=== PATIENT | female | born 1985 | race Caucasian/White ===

== ENCOUNTER 2020-06-01 14:39 | Outpatient (REF) | payer BC, MEDICARE, MEDICAID, SELFPAY ==
[2020-06-01 17:09] LABS: Alanine Aminotransferase 15 U/L (0-31); Albumin Level 4.6 g/dL (3.5-5.0); Alkaline Phosphatase 32 U/L (39-117); Anion Gap 13 (12-20); Aspartate Amino Transferase 14 U/L (5-31); Bilirubin Total 0.9 mg/dL (0.0-1.0); Blood Urea Nitrogen 15 mg/dL (9-16); Calcium 9.7 mg/dL (8.4-10.2); Carbon Dioxide 28 mmol/L (22-29); Chloride 104 mmol/L (96-108); Estimated Glomerular Filt Rate > 60; Glucose Random 90 mg/dL (60-115); Potassium 4.2 mmol/l (3.3-5.1); Sodium 141 mmol/L (135-145); Total Protein 7.4 g/dL (6.5-8.0)
[2020-06-01 17:29] LABS: TSH reflex Free T4 0.82 mIU/mL (0.32-4.0)
== END 2020-06-01 14:40 | disposition home or self-care (01) ==
LOC: HO.HMGCLDS 14:39
PROVIDERS: PCP Nurse Practitioner Family; Visit Provider Nurse Practitioner Family
DX: R63.4 Abnormal weight loss (principal); Z83.79 Family history of other diseases of the digestive system
CPT/HCPCS: 36415; 80053; 84443

== ENCOUNTER 2020-06-06 09:08 | Outpatient (REF) | payer BC, MEDICARE, MEDICAID, SELFPAY ==
--- NOTE | 2020-06-06 09:31 | ECG_ITS ---
Test Reason : PALPITATIONS Blood Pressure : / mmHG Vent. Rate : 084 BPM Atrial Rate : 084 BPM P-R Int : 132 ms QRS Dur : 076 ms QT Int : 384 ms P-R-T Axes : 077 060 052 degrees QTc Int : 453 ms Normal sinus rhythm Possible Left atrial enlargement Borderline ECG No previous ECGs available Referred By: Sophy Gentile Electronically Signed By:BRIDGETT BLACKWOOD
[2020-06-06 09:50] LABS: MANUAL DIFF FLAG NO
[2020-06-06 10:00] LABS: Basophils Percent Auto 0.9 % (0-2); Eosinophils Percent Auto 1.2 % (0-4); Hematocrit 41.2 % (37-47); Hemoglobin 14.1 g/dl (12.0-16.0); Lymphocytes Absolute Auto 1.4 X10*3/uL (1.2-4.9); Lymphocytes Percent Auto 41.7 % (20-40); Mean Corpuscular HGB Conc 34.2 g/dl (31.0-35.0); Mean Corpuscular Hemoglobin 30.5 pg (27.0-33.0); Mean Platelet Volume 9.4 fL (9.4-12.3); Monocytes Absolute Auto 0.3 X10*3/uL (0.1-1.2); Monocytes Percent Auto 8.5 % (2-11); Neutrophils Absolute Auto 1.6 X10*3/uL (2.0-8.3); Neutrophils Percent Auto 47.7 % (45-73); Platelet Count 269 X10*3/uL (160-400); Red Blood Count 4.63 X10*6/uL (4.20-5.50); Red Cell Distribution Width 12.1 % (11.0-16.0); White Blood Count 3.4 X10*3/uL (4.8-10.8)
[2020-06-06 10:25] LABS: Alanine Aminotransferase 11 U/L (0-31); Albumin Level 4.5 g/dL (3.5-5.0); Alkaline Phosphatase 31 U/L (39-117); Anion Gap 10 (12-20); Aspartate Amino Transferase 11 U/L (5-31); Bilirubin Total 0.9 mg/dL (0.0-1.0); Blood Urea Nitrogen 10 mg/dL (9-16); Calcium 9.4 mg/dL (8.4-10.2); Carbon Dioxide 29 mmol/L (22-29); Chloride 104 mmol/L (96-108); Cholesterol 136 mg/dL; Estimated Glomerular Filt Rate > 60; Glucose Random 95 mg/dL (60-115); HDL Cholesterol 66 mg/dL; Iron 120 mcg/dL (30-160); LDL Cholesterol Calculated 62 mg/dl; Percent Iron Saturation 37 % (15-50); Potassium 4.3 mmol/l (3.3-5.1); Sodium 139 mmol/L (135-145); Total Iron Binding Capacity 321 mcg/dL (228-428); Total Protein 7.3 g/dL (6.5-8.0); Triglycerides 40 mg/dL; Unsaturated Iron Binding 201 ug/dL
[2020-06-06 10:42] LABS: HIV AB/AG Nonreactive (Nonreactive); HIV Num 1 0.06 S/CO (0.00-0.99)
[2020-06-06 10:50] LABS: Ferritin 39 ng/mL (10-122); Free T4 (Free Thyroxine) 1.03 ng/dL (0.71-1.85); Thyroid Stimulating Hormone 0.65 mIU/mL (0.32-4.0); Vitamin D 25-OH Total 29.5 ng/mL (>30)
[2020-06-06 11:15] LABS: Estimated Average Glucose 94 mg/dL; Hemoglobin A1c % 4.9 %
[2020-06-06 11:18] LABS: Folate 12.9 ng/mL (> or = 4.0); Vitamin B12 558 pg/mL (200-900)
== END 2020-06-06 09:09 | disposition home or self-care (01) ==
LOC: HO.LAB 09:08
PROVIDERS: PCP Nurse Practitioner Family; Visit Provider Clinical Nurse Specialist Psychiatric/Mental Health, Adult
DX: F33.2 Major depressive disorder, recurrent severe without psychotic features (principal); R00.2 Palpitations
CPT/HCPCS: 36415; 80053; 80061; 82306; 82607; 82728; 82746; 83036; 83540; 83735; 84439; 84443; 85025; 87389; 93005; 93010

== ENCOUNTER 2020-06-22 10:45 | Outpatient (RCR) | payer BC, MEDICARE, MEDICAID, SELFPAY ==
--- NOTE | 2020-06-01 12:41 | PC.NURSE ---
Made a f/u call to Patient as she was upset this morning as she was not able to make it on time to the first group thus was not able to attend PHP for the day per policy. Patient was able to process her feelings about this. Talked about the difficulties of being recently and being a single mom. This morning patient stated she was very stressed as her son who is in preschool had an accident and deficated in his pants. She brought him a change of clothing however became frustrated as she was not able to comfort him d/t the pandemic. Patient was not sure if she would be welcomed back to the group by Joanie as she was the one who told her about the policy and patient did not react well. Patient would like to talk to Joanie today and I told patient that Joanie will call her. Patient denied SI or thoughts to harm herself. Patient stated that her sobiety is not in jeapordy and has already attended 2 AA meetings and plans on attending another at 6:00 pm. Stated AA meetings are helpful and she feels support from others.
--- NOTE | 2020-06-01 14:31 | HO.PHPPROGNO ---
Subjective Subjective Date of Service: 06/01/20 Reason For Visit: F33.2 Interim History: Pt reports she did not review medication information sent. Reports Abilify helped when she was in her 20's however she is not ready to return to this agent. Hx of Sil Andrew, it made my face twitch . Reports anger with team as she needed to leave the program to attend to her son's needs today. She was asked to take the day off and return on Thursday which she reports angered her. Describes low energy, anger, irritability, lability. Denies substance use. Discussion of prn of Clonidine for the weekend which she would like to trial. Medication Compliance: Intermittent Side effects from medications: No Attending Groups: Yes Mental Status Exam Mental Status Exam Patient Orientation: Person, Place, Time and Situation Level of Consciousness: Awake and Alert Patient Behavior: Appropriate Mood Description: Hostile, Labile and Angry Affect Description: Hostile, Labile and Angry Patient Cognition Impaired: No Ability to Follow Directions: Excellent Speech Pattern: Clear Memory Description: Intact Hallucinations: None Delusions: Not Present Thought Process: Intact Thought Content: positive for Suicidal Ideation (denies currently, verbalized with team when expressing her anger with being asked to take time for her son.) Depressive Symptoms: Increased Irritability Abnormal Motor Activity Signs and Symptoms: Agitation Judgement: Good Diagnostics Labs Labs: Pending. Orders sent 05/30. Pt has not had labs/EKG yet. Assessment & Plan Patient educated on: medication risk/benefits Informed Consent: understands and further education needed Reason for contiued partial hosp. stay Substantial Risk for: harm to self, inability to function and rapid decompensation Certification I certify that partial hospital treatment is medically necessary due to the symptoms and problems resulting from the patient's mental illness and the failure to treat the patient at the partial hospital level of care would likely result in the patient requiring inpatient psychiatric care which could not be prevented at a less intensive level of care. Greater than 50% of the session was spent on counseling and/or coordination of care Discharge Plan Discharge Attending provider: Hamlet Granda Additional Instructions: Clonidine 0.1 mg HS trial Medications: New clonidine HCl 0.1 mg tablet 0.1 mg PO BEDTIME Qty: 5 RF: 0 No Action fluticasone propionate 50 mcg/actuation spray,suspension 1 spray intranasal DAILY Qty: 16 RF: 1 clonazepam 1 mg tablet 1 tab PO TID PRN (Reason: Anxiety) RF: 0 fluticasone propionate 50 mcg/actuation spray,suspension 1 spray intranasal DAILY RF: 0 dicyclomine 10 mg capsule 2 cap PO QID RF: 0 loratadine 10 mg tablet 1 tab PO DAILY RF: 0 dicyclomine 10 mg capsule 20 mg PO QID RF: 0 albuterol sulfate 90 mcg/actuation HFA aerosol inhaler 1 puff inhalation Q4H PRN (Reason: shortness of breath or wheezing) RF: 0 loratadine [Claritin] 10 mg tablet 10 mg PO DAILY RF: 0 oxcarbazepine 600 mg tablet extended release 24 hr 600 mg PO DAILY RF: 0
--- NOTE | 2020-06-07 14:40 | HO.PHPPROGNO ---
Subjective Subjective Date of Service: 06/07/20 Reason For Visit: F33.2 Interim History: It was more stressful today with new group members . I feel exhausted. I did nap on break today .. Wen asked to review her EKG and labs today. Reports by hx she has experienced sx of feeling her heart skips a beat when running on the treadmill, she has felt palpitations in the past and feelings of her heart shaking,trembling . Also reports hx of PVC but was told this was not a concern to her medical team. She attempts not to take medication she does not need to keep her health in check. Reports the program is helpful, however, new members cause some apprehension. Discussed sleep latency symptoms. Discussed the different sleeping medications commonly used and their interaction potential with her Klonopin dosing. She for the most part has success with Benadryl Medication Compliance: Yes Side effects from medications: No Attending Groups: Yes Mental Status Exam Mental Status Exam Patient Orientation: Person, Place, Time and Situation Level of Consciousness: Awake, Appropriate and Alert Patient Behavior: Appropriate Mood Description: Apprehensive (worries about her health and abnormal diagnostics) Affect Description: Apprehensive Patient Cognition Impaired: No Ability to Follow Directions: Excellent Speech Pattern: Clear Memory Description: Intact Hallucinations: None Delusions: Not Present Thought Process: Intact Depressive Symptoms: Insomnia (Latency sx.), Hopelessness, Unhappiness and Loss of Energy Judgement: Good Diagnostics Labs Labs: 06/06/20 WBC 3.4 (4.8-10.8) EKG EKG: reviewed EKG Comment: 06/06/20-NSR, Possible left atrial enlargement, Borderline ECG Vent Rate 84, MT Interval 132, QRS Duration 76, QT/QTc 384/453 P-R-T axes 77 60 52 Validated by Nikko Carranza MD Assessment & Plan Patient educated on: medication risk/benefits, therapeutic strategies and medical condition Informed Consent: understands and further education needed Reason for contiued partial hosp. stay Substantial Risk for: harm to self, inability to function and rapid decompensation Certification I certify that partial hospital treatment is medically necessary due to the symptoms and problems resulting from the patient's mental illness and the failure to treat the patient at the partial hospital level of care would likely result in the patient requiring inpatient psychiatric care which could not be prevented at a less intensive level of care. Greater than 50% of the session was spent on counseling and/or coordination of care Discharge Plan Discharge Attending provider: Hamlet Granda Additional Instructions: Pt declined Clonidine trial Medications: No Action fluticasone propionate 50 mcg/actuation spray,suspension 1 spray intranasal DAILY Qty: 16 RF: 1 clonazepam 1 mg tablet 1 tab PO TID PRN (Reason: Anxiety) RF: 0 fluticasone propionate 50 mcg/actuation spray,suspension 1 spray intranasal DAILY RF: 0 dicyclomine 10 mg capsule 2 cap PO QID RF: 0 loratadine 10 mg tablet 1 tab PO DAILY RF: 0 dicyclomine 10 mg capsule 20 mg PO QID RF: 0 albuterol sulfate 90 mcg/actuation HFA aerosol inhaler 1 puff inhalation Q4H PRN (Reason: shortness of breath or wheezing) RF: 0 loratadine [Claritin] 10 mg tablet 10 mg PO DAILY RF: 0 oxcarbazepine 600 mg tablet extended release 24 hr 600 mg PO DAILY RF: 0
--- NOTE | 2020-06-08 11:12 | PC.NURSE ---
I called and spoke to pt after she left group impulsively after I answered her question about a group guideline which appeared to be difficult for her. Pt shared thoughts that she might discontinue program, and spoke about feelings related to this and to a series of circumstances that occurred yesterday in group that she finds herself ruminating about. She questioned whether groups might be too triggering for her emotionally. I suggested she think about this for a while, and be sure that this decision is good for her and not an impulsive reaction. After some discussion she said she wants to continue in the program. We spoke about ways to manage when redirected or offended in group, and pt agreed to try to have a discussion instead of impulsively leaving.
--- NOTE | 2020-06-15 15:39 | HO.PHPPROGNO ---
Subjective Subjective Date of Service: 06/15/20 Reason For Visit: F33.2 Interim History: Wen reports she is feeling well and finding the program helpful. She is concerned as she finds when anxious she is not as organized as usual (cites misplacing some papers). She is also concerned about a drain which is clogged in her basement. No new medication issues or questions today. Medication Compliance: Yes Side effects from medications: No Attending Groups: Yes Review of Systems Review of Systems Yes all other systems are reviewed and are negative Reports memory loss (when anxious or worried about something she reports) Psychiatric: Reports no additional psychiatric complaints and Reports memory loss (when anxious or worried about something she reports) Mental Status Exam Mental Status Exam Patient Orientation: Person, Place, Time and Situation Level of Consciousness: Awake, Appropriate and Alert Patient Behavior: Appropriate Mood Description: Constricted and Anxious Affect Description: Constricted and Anxious Patient Cognition Impaired: No Ability to Follow Directions: Excellent Speech Pattern: Clear, Appropriate, Spontaneous Speech and Pressured (mild) Memory Description: Intact Hallucinations: None Delusions: Not Present Thought Process: Intact Thought Content: positive for Intact Depressive Symptoms: Increased Anxiety Judgement: Good Assessment & Plan Patient educated on: medication risk/benefits and therapeutic strategies Informed Consent: understands and further education needed Reason for contiued partial hosp. stay Substantial Risk for: harm to self, inability to function and rapid decompensation Certification I certify that partial hospital treatment is medically necessary due to the symptoms and problems resulting from the patient's mental illness and the failure to treat the patient at the partial hospital level of care would likely result in the patient requiring inpatient psychiatric care which could not be prevented at a less intensive level of care. Greater than 50% of the session was spent on counseling and/or coordination of care Discharge Plan Discharge Attending provider: Hamlet Granda Additional Instructions: Pt declined Clonidine trial Continue current regime Medications: No Action fluticasone propionate 50 mcg/actuation spray,suspension 1 spray intranasal DAILY Qty: 16 RF: 1 loratadine 10 mg tablet 10 mg PO DAILY Qty: 30 RF: 5 clonazepam 1 mg tablet 1 tab PO TID PRN (Reason: Anxiety) RF: 0 fluticasone propionate 50 mcg/actuation spray,suspension 1 spray intranasal DAILY RF: 0 dicyclomine 10 mg capsule 2 cap PO QID RF: 0 dicyclomine 10 mg capsule 20 mg PO QID RF: 0 albuterol sulfate 90 mcg/actuation HFA aerosol inhaler 1 puff inhalation Q4H PRN (Reason: shortness of breath or wheezing) RF: 0 oxcarbazepine 600 mg tablet extended release 24 hr 600 mg PO DAILY RF: 0
--- NOTE | 2020-06-19 16:17 | HO.PHPPROGNO ---
Subjective Subjective Date of Service: 06/19/20 Reason For Visit: F33.2 Interim History: Wen reports she is considering a Propranolol 10 mg daily trial which was approved by her PCP. She is anxious about trialing, had several questions and reviewed symptoms. She also discussed wanting to taper Klonopin 3 mg daily. We discussed factors effecting this and tapering schedules. Discussed talking with her OP team about a taper of 0.25 mg every 6 weeks. Encouraged not to engage in rapid tapering as this method is often unsuccessful and presents several new issues to manage. She also asked about using the supplement Berbenne-which we researched and discussed. She reports she is sober, with no relapses at this time. Medication Compliance: Yes Side effects from medications: No Attending Groups: Yes Review of Systems Review of Systems Yes all other systems are reviewed and are negative Psychiatric: Reports anxiety, Reports depression, Reports irritability, Reports anhedonia and Reports mood swings Comments: Denies SI, plan or intent. Mental Status Exam Mental Status Exam Patient Orientation: Person, Place, Time and Situation Level of Consciousness: Awake, Appropriate and Alert Patient Behavior: Appropriate and Cooperative Mood Description: Anxious Affect Description: Anxious Patient Cognition Impaired: No Ability to Follow Directions: Excellent Speech Pattern: Clear and Appropriate Memory Description: Intact Hallucinations: None Delusions: Not Present Thought Process: Intact and Goal Oriented Thought Content: positive for Intact Depressive Symptoms: Increased Anxiety Judgement: Good Assessment & Plan Patient educated on: diagnosis, medication risk/benefits, substance abuse and therapeutic strategies Informed Consent: understands and further education needed Reason for contiued partial hosp. stay Substantial Risk for: harm to self, inability to function and rapid decompensation Certification I certify that partial hospital treatment is medically necessary due to the symptoms and problems resulting from the patient's mental illness and the failure to treat the patient at the partial hospital level of care would likely result in the patient requiring inpatient psychiatric care which could not be prevented at a less intensive level of care. Greater than 50% of the session was spent on counseling and/or coordination of care Discharge Plan Discharge Attending provider: Hamlet Granda Additional Instructions: Pt declined Clonidine trial PCP has sent in a trial of Propranolol 10 mg daily. Pt will trial at HS Medications: No Action fluticasone propionate 50 mcg/actuation spray,suspension 1 spray intranasal DAILY Qty: 16 RF: 1 loratadine 10 mg tablet 10 mg PO DAILY Qty: 30 RF: 5 propranolol 10 mg tablet 10 mg PO BID 30 Days Qty: 60 RF: 0 Flovent Diskus 50 mcg/actuation blister with device 1 inh inhalation BID 30 Days Qty: 60 RF: 5 clonazepam 1 mg tablet 1 tab PO TID PRN (Reason: Anxiety) RF: 0 fluticasone propionate 50 mcg/actuation spray,suspension 1 spray intranasal DAILY RF: 0 dicyclomine 10 mg capsule 2 cap PO QID RF: 0 dicyclomine 10 mg capsule 20 mg PO QID RF: 0 albuterol sulfate 90 mcg/actuation HFA aerosol inhaler 1 puff inhalation Q4H PRN (Reason: shortness of breath or wheezing) RF: 0 oxcarbazepine 600 mg tablet extended release 24 hr 600 mg PO DAILY RF: 0
== END 2020-06-22 23:55 | disposition home or self-care (01) ==
LOC: HO.PHPA 10:45
PROVIDERS: Visit Provider Psychiatry & Neurology Psychiatry
DX: F33.2 Major depressive disorder, recurrent severe without psychotic features (principal); F42.9 Obsessive-compulsive disorder, unspecified; F10.20 Alcohol dependence, uncomplicated
CPT/HCPCS: 90853; 99213; 99214

== ENCOUNTER 2020-07-02 11:59 | Outpatient (REF) | payer BC, MEDICARE, MEDICAID, SELFPAY ==
--- NOTE | 2020-07-02 12:51 | XR_ITS ---
EXAMINATION: XR TOES, LEFT CLINICAL INFORMATION: Pain COMPARISON: None TECHNIQUE: 3 views of the left great toe were obtained FINDINGS: Bone alignment is normal. No fracture or dislocation is seen. Joint spaces are normal. Soft tissues are normal. XR/XR toe LT min 2V IMPRESSION: Unremarkable examination.
[2020-07-02 14:02] LABS: MANUAL DIFF FLAG NO
[2020-07-02 14:07] LABS: Basophils Percent Auto 0.8 % (0-2); Eosinophils Absolute Auto 0.1 X10*3/uL (0.0-0.4); Eosinophils Percent Auto 1.2 % (0-4); Hematocrit 41.9 % (37-47); Hemoglobin 14.1 g/dl (12.0-16.0); Imm Gran Abs Auto 0.01 X10*3/uL (0.00-0.03); Imm Gran Pct Auto 0.2 % (0.0-0.4); Lymphocytes Absolute Auto 1.6 X10*3/uL (1.2-4.9); Lymphocytes Percent Auto 31.8 % (20-40); Mean Corpuscular HGB Conc 33.7 g/dl (31.0-35.0); Mean Corpuscular Hemoglobin 30.3 pg (27.0-33.0); Mean Corpuscular Volume 90.1 fL (80-98); Mean Platelet Volume 9.7 fL (9.4-12.3); Monocytes Absolute Auto 0.4 X10*3/uL (0.1-1.2); Monocytes Percent Auto 7.9 % (2-11); Neutrophils Percent Auto 58.1 % (45-73); Platelet Count 297 X10*3/uL (160-400); Red Blood Count 4.65 X10*6/uL (4.20-5.50); Red Cell Distribution Width 12.2 % (11.0-16.0); White Blood Count 5.2 X10*3/uL (4.8-10.8)
== END 2020-07-02 12:00 | disposition home or self-care (01) ==
LOC: HO.HMGCLDS 11:59
PROVIDERS: Absent Provider Nurse Practitioner Family; PCP Nurse Practitioner Family; Visit Provider Nurse Practitioner Family
DX: D72.819 Decreased white blood cell count, unspecified (principal); M79.675 Pain in left toe(s)
CPT/HCPCS: 36415; 73660; 85025

== ENCOUNTER 2020-09-18 07:40 | Outpatient (REF) | payer BC, MEDICARE, MEDICAID, SELFPAY ==
[2020-09-18 12:29] LABS: Alanine Aminotransferase 10 U/L (0-31); Albumin Level 4.5 g/dL (3.5-5.0); Alkaline Phosphatase 29 U/L (39-117); Anion Gap 11 (12-20); Aspartate Amino Transferase 11 U/L (5-31); Bilirubin Total 1.3 mg/dL (0.0-1.0); Blood Urea Nitrogen 10 mg/dL (9-16); Calcium 9.1 mg/dL (8.4-10.2); Carbon Dioxide 28 mmol/L (22-29); Chloride 104 mmol/L (96-108); Cholesterol 110 mg/dL; Estimated Glomerular Filt Rate > 60; Glucose Fasting 87 mg/dL (60-99); HDL Cholesterol 63 mg/dL; LDL Cholesterol Calculated 41 mg/dl; Potassium 4.2 mmol/l (3.3-5.1); Sodium 139 mmol/L (135-145); Total Protein 7.1 g/dL (6.5-8.0); Triglycerides 31 mg/dL
[2020-09-18 12:41] LABS: TSH reflex Free T4 0.96 mIU/mL (0.32-4.0)
== END 2020-09-18 07:41 | disposition home or self-care (01) ==
LOC: HO.HMGCLDS 07:40
PROVIDERS: PCP Nurse Practitioner Family; Visit Provider Nurse Practitioner Family
DX: Z00.00 Encounter for general adult medical examination without abnormal findings (principal)
CPT/HCPCS: 36415; 80053; 80061; 84443

== ENCOUNTER → 2020-09-26 09:56 | Outpatient (BNVA) | payer BC, MEDICARE, MEDICAID, SELFPAY | PROVIDERS: PCP Nurse Practitioner Family; Visit Provider Internal Medicine Cardiovascular Disease | DX: Z76.89 Persons encountering health services in other specified circumstances (principal) ==

== ENCOUNTER → 2020-10-04 13:28 | Outpatient (REF) | payer BC, MEDICARE, MEDICAID, SELFPAY ==
--- NOTE | 2020-10-04 13:33 | ECG_ITS ---
Hook-up date: 2020-10-04 13:37:00 Duration: 26:10:00 Test Indications: PALPITATIONS Medications: 375128 QRS complexes * Ventricular ectopics which represent % of total QRS comp. * Supraventricular ectopics which represent % of total QRS comp. * Paced QRS complexs which represent % of total QRS comp. VENTRICULAR ECTOPY * Isolated * Bigeminal Cycles * Couplets * Runs * Beats in Runs * Beats LONGEST at * BPM at :: -- * Beats FASTEST at * BPM at :: -- SUPRAVENTRICULAR ECTOPY * Isolated * Couplets * Runs * Beats in Runs * Beats LONGEST at * BPM at :: -- * Beats FASTEST at * BPM at :: -- HEART RATES 54 MIN at 05:39:29 2020-10-05 75 AVG 135 MAX at 07:48:37 2020-10-05 LONGEST RR 1.2320 secs at 06:36:41 2020-10-05 S-T LEVELS Channel 1 - 128 mm at 13:37:00 2020-10-04 - 128 mm at 13:37:00 2020-10-04 Channel 2 - 128 mm at 13:37:00 2020-10-04 - 128 mm at 13:37:00 2020-10-04 Channel 3 - 128 mm at 03:25:61 -- - 128 mm at 03:25:61 Basic rhythm Normal sinus rhythm No long pause or profound bradycardia No dangerous dysrhythm periods Patient reported symptoms correlated with NSR Referred By: Raf Jaquez Overread By: DARRIUS PETERSON MD
== END ==
LOC: HO.CARD 13:28
PROVIDERS: Visit Provider Nurse Practitioner Family
DX: R00.2 Palpitations (principal)
CPT/HCPCS: 93225; 93226

== ENCOUNTER 2020-10-07 01:23 | Emergency (ER) | payer BC, MEDICARE, MEDICAID, SELFPAY ==
[2020-10-07] VITALS (7 sets, daily range): BP systolic 117–136; BP diastolic 71–90; PULSE 88–121; RESP 15–16; TEMP 37; O2SAT 98–99; BMI 21.0
--- NOTE | ~2020-10-07 | CT_ITS ---
EXAMINATIONS: CT HEAD WITHOUT CONTRAST AND CT CERVICAL SPINE WITHOUT CONTRAST CLINICAL INFORMATION: Pain. Seizure. COMPARISON: None. TECHNIQUE: Contiguous helical images of the brain were obtained without IV contrast. Contiguous helical images of the cervical spine were obtained without IV contrast. Multiplanar reconstructions were performed. DLP: 910 mGy-cm. FINDINGS: There are no pathologic extra-axial fluid collections. The lateral, third, fourth ventricles are nondilated and concordant with the appearance of the sulci. There is no evidence for acute intraparenchymal hemorrhage or infarct. There is neither mass nor mass effect. There is no shift of midline structures. The paranasal sinuses and mastoid air cells are clear. There are no osseous lesions. The cervical vertebra are in normal alignment. Disc heights and vertebral heights are well-preserved. There are no fractures. There is no prevertebral soft tissue swelling. There is no cervical lymphadenopathy. The visualized lung apices are clear. CT/CT head/brain wo con IMPRESSION: No evidence for acute intracranial injury. No evidence for acute injury to the cervical spine. Automated exposure control (Care Dose) Adjustment of the mA and/or kv according to patient size (this includes techniques or standardized protocols for targeted exams where dose is matched to indication / reason for exam; i.e. extremities or head).
--- NOTE | ~2020-10-07 | XR_ITS ---
EXAMINATION: CHEST 1 VIEW CLINICAL INFORMATION: Syncope. Seizure. COMPARISON: 12/08/2019. TECHNIQUE: An AP view of the chest is provided. FINDINGS: The cardiac silhouette is not enlarged. The mediastinal and hilar contours are unremarkable. There are neither pleural effusions nor pneumothoraces. There are no consolidations. The osseous structures are unremarkable. XR/XR chest 1V IMPRESSION: No evidence for acute disease.
--- NOTE | ~2020-10-07 | CT_ITS ---
EXAMINATIONS: CT HEAD WITHOUT CONTRAST AND CT CERVICAL SPINE WITHOUT CONTRAST CLINICAL INFORMATION: Pain. Seizure. COMPARISON: None. TECHNIQUE: Contiguous helical images of the brain were obtained without IV contrast. Contiguous helical images of the cervical spine were obtained without IV contrast. Multiplanar reconstructions were performed. DLP: 910 mGy-cm. FINDINGS: There are no pathologic extra-axial fluid collections. The lateral, third, fourth ventricles are nondilated and concordant with the appearance of the sulci. There is no evidence for acute intraparenchymal hemorrhage or infarct. There is neither mass nor mass effect. There is no shift of midline structures. The paranasal sinuses and mastoid air cells are clear. There are no osseous lesions. The cervical vertebra are in normal alignment. Disc heights and vertebral heights are well-preserved. There are no fractures. There is no prevertebral soft tissue swelling. There is no cervical lymphadenopathy. The visualized lung apices are clear. CT/CT cervical spine wo con IMPRESSION: No evidence for acute intracranial injury. No evidence for acute injury to the cervical spine. Automated exposure control (Care Dose) Adjustment of the mA and/or kv according to patient size (this includes techniques or standardized protocols for targeted exams where dose is matched to indication / reason for exam; i.e. extremities or head).
--- NOTE | 2020-10-07 01:34 | ECG_ITS ---
Test Reason : SYNCOPE Blood Pressure : / mmHG Vent. Rate : 088 BPM Atrial Rate : 088 BPM P-R Int : 152 ms QRS Dur : 074 ms QT Int : 360 ms P-R-T Axes : 065 065 041 degrees QTc Int : 435 ms Artifact in tracing Normal sinus rhythm Apart from the artifact, normal EKG When compared with ECG of 06-JUN-2020 09:38, No significant change was found Referred By: Ruma Mitchell Electronically Signed By:JUSTIN CROFT
--- NOTE | 2020-10-07 01:37 | ED_ITS ---
HPI - General Adult General Chief complaint: Syncope Stated complaint: fall Time Seen by Provider: 10/07/20 01:33 Source: patient and EMS Mode of arrival: EMS Limitations: no limitations History of Present Illness HPI narrative: This is a 34 years old female with history of depression, IBS, gestational diabetes, migraine, OCD, vertigo. Was sitting in bed texting on her phone then suddenly patient lost consciousness and found herself on the ground confused do not remember what happened to her, patient noticed that she bit her right cheek and left side of her tongue with mild bleeding, patient stated this happened 1 time in the past. Patient declined using any drugs or alcohol. Patient declined history of seizure. Related Data Home Medications Medication Instructions Recorded Confirmed clonazepam 1 tab PO TID PRN 06/05/20 09/26/20 fluticasone propionate 1 spray INTRANASAL DAILY 06/05/20 09/26/20 flu vacc [id number] 6mos up(PF) ml IM 07/13/20 09/26/20 Previous Rx's Medication Instructions Recorded loratadine 10 mg tablet 10 mg PO DAILY #30 tab 06/11/20 fluticasone propionate 50 1 inh INHALATION BID 30 Days #60 ea 06/19/20 mcg/actuation blister powder for inhalation albuterol sulfate 90 mcg/actuation 2 puff INHALATION Q4H PRN 30 Days 07/12/20 aerosol inhaler #8.5 g propranolol 10 mg tablet 10 mg PO BID #60 tab 08/03/20 dicyclomine 10 mg capsule 20 mg PO QID PRN 30 Days #120 cap 08/29/20 Allergies Allergy/AdvReac Type Severity Reaction Status Date / Time Sulfa (Sulfonamide Allergy Unknown Itching Verified 08/09/20 12:30 Antibiotics) sulfamethoxazole Allergy Unknown itchy Verified 08/09/20 12:30 [From Bactrim] trimethoprim [From Bactrim] Allergy Unknown itchy Verified 08/09/20 12:30 DUST Allergy Unknown RUNNY NOSE Uncoded 08/09/20 12:30 SEASONAL ALLERGIES Allergy Unknown UNKNOWN Uncoded 08/09/20 12:30 Review of Systems Review of Systems: All other systems are reviewed and are negative Constitutional: Reports as per HPI and Reports no additional constitutional complaints Eyes: Reports as per HPI and Reports no additional eye complaints Reports system reviewed and no additional complaints, except as documented Cardiovascular: Reports as per HPI and Reports no additional cardiovascular complaints Respiratory: Reports as per HPI and Reports no additional respiratory complaints Gastrointestinal: Reports as per HPI and Reports no additional gastrointestinal complaints Genitourinary: Reports no additional female genitourinary complaints Musculoskeletal: Reports no additional musculoskeletal complaints Skin/Breast: Reports system reviewed and no additional complaints, except as docu Psychiatric: Reports no additional psychiatric complaints Endocrine: Reports no additional endocrine complaints Hematologic/Lymphatic: Reports no additional hematologic/lymphatic complaints Allergic/Immunologic: Reports no additional allergic/immunologic complaints Reports system reviewed and no additional complaints, except as documented and Reports Abnormal speech present [facility] Past Medical History Source: unable to obtain Medical History (Updated 09/26/20 @ 11:51 by Raf Jaquez, [facility]) Bipolar 1 disorder Bulimia History of depression History of irritable bowel syndrome Hx gestational diabetes Migraine aura without headache (migraine equivalents) OCD (obsessive compulsive disorder) PVC (premature ventricular contraction) Suicidal ideations Tachycardia Vertigo Family History Family History Father No problems noted. Mother HTN (hypertension) Diabetes High cholesterol Rheumatoid arthritis Social History Social History Alcohol intake: never Smoking Status: Never smoker Use of substances other than those prescribed or required for medical reasons: No Advance Directives: No Advance Directives Information Provided: No Physical Exam Vital Signs: Vital Signs: Last Vital Signs Temp 98.6 F 10/07/20 01:34 Pulse 99 10/07/20 03:28 Resp 16 10/07/20 03:10 BP 131/80 10/07/20 03:28 Pulse Ox 99 10/07/20 03:10 Body Mass Index 21.0 Vital signs have been reviewed as normal and appeared to be correct. Blood pressure normal. Heart rate normal. Respiration rate normal. Temperature nor mal. Oxygen saturation normal. Appearance: Alert. Oriented X3. No acute di stress. Head: Normal external exam. Normocephalic. Atraumatic. No Rose signs noted. No raccoon eyes noted, small superficial laceration on the left side of the tongue, no active bleeding, small superficial laceration on the right inner cheek with no active bleeding. Eyes: PERRLA. EOMI. Conjunctiva and sclera normal. Eyelids normal. ENT: TM's Normal. Pharynx normal. Uvula midline. Moist mucous membranes. No trismus noted. No drooling noted. No muffled voice noted. Neck: Normal inspection. Neck supple. FROM. No adenopathy. Thyroid Normal. No meningeal signs. No neck mass noted. CVS: Normal heart rate and rhythm. Heart sound normal. No murmurs noted. Pulses normal throughout. Respiratory: No respiratory distress. Painless inspiration. Breath sounds normal. No wheezes/rales/rhonchi noted. Chest nontender. No accessory muscle usage noted or decreased air movement noted. Abdomen: Soft and nontender. Bowel sounds normal in all 4 quadrants. No distention noted. No organomegaly noted. No visible injury noted. Back: No CVA tenderness. Full range of motion noted. Skin: Skin warm and dry. Normal skin color. Normal skin turgor. No rashes/lesions/lacerations noted. Extremities: No lower extremity edema. Extremities exhibit normal range of motion. Extremities nontender. Neuro: Oriented X 3. No motor deficit. No sensory deficit. Reflexes normal. Course Course Course Narrative: Assessment and plan. 34-year-old female came in after loss of consciousness and falling from the bed and biting her tongue, patient reported postictal confusion and forgetfulness for about 40 minutes, patient declined any history of seizure, unremarkable neuro exam now, head C-spine exam on negative, normal metabolic panel. The clinical picture is suggestive for a seizure, patient reported that this happen in the past but patient never been diagnosed with seizure. Will start the patient on Keppra until sees neurologist, patient was instructed not to drive cars until cleared by a neurologist. Medical Decision Making Lab Data Lab results reviewed: Yes I reviewed the patient's lab results. Result diagrams: 10/07/20 03:05 10/07/20 03:05 Labs: Lab Results 10/07/20 10/07/20 10/07/20 Range/Units 02:54 02:54 03:05 WBC 8.2 (4.8-10.8) X10*3/uL RBC 4.80 (4.20-5.50) X10*6/uL Hgb 14.8 (12.0-16.0) g/dl Hct 42.6 (37-47) % MCV 88.8 (80-98) fL MCH 30.8 (27.0-33.0) pg MCHC 34.7 (31.0-35.0) g/dl RDW 11.6 (11.0-16.0) % Plt Count 311 (160-400) X10*3/uL MPV 9.6 (9.4-12.3) fL Immature Gran % (Auto) 0.2 (0.0-0.4) % Neut % (Auto) 84.1 H (45-73) % Lymph % (Auto) 11.3 L (20-40) % Garden % (Auto) 3.6 (2-11) % Eos % (Auto) 0.4 (0-4) % Baso % (Auto) 0.4 (0-2) % Lymph # (Auto) 0.9 L (1.2-4.9) X10*3/uL [place] # (Auto) 0.3 (0.1-1.2) X10*3/uL Eos # (Auto) 0.0 (0.0-0.4) X10*3/uL Baso # (Auto) 0.0 (0.0-0.2) X10*3/uL Abs Immat Gran (auto) 0.02 (0.00-0.03) X10*3/uL Absolute Neuts (auto) 6.9 (2.0-8.3) X10*3/uL Absolute Nucleated RBC 0.000 (0.0-0.012) X10*3/uL Nucleated RBC % (auto) 0.0 (0.0-0.2) /100WBC Sodium (135-145) mmol/L Potassium (3.3-5.1) mmol/L Chloride (96-108) mmol/L Carbon Dioxide (22-29) mmol/L Anion Gap (12-20) BUN (9-16) mg/dL Creatinine (0.5-1.4) mg/dL Estim Creat Clear Calc Estimated GFR Random Glucose (60-115) mg/dL Calcium (8.4-10.2) mg/dL Total Bilirubin (0.0-1.0) mg/dL Direct Bilirubin (0.0-0.5) mg/dL AST (5-31) U/L ALT (0-31) U/L Alkaline Phosphatase (39-117) U/L Troponin I High Sens (<3.5-17.0) ng/L Total Protein (6.5-8.0) g/dL Albumin (3.5-5.0) g/dL Lipase (8-78) U/L Urine Color YELLOW Urine Appearance CLEAR Urine pH 6.0 (5.0-8.0) Ur Specific [place] <= 1.005 (1.005-1.025) Urine Protein NEG (NEG-TRACE) MG/DL Urine Glucose (UA) NEG (NEG) MG/DL Urine Ketones NEG (NEG) MG/DL Urine Blood TRACE (NEG) Urine Nitrite NEG (NEG) Ur Leukocyte Esterase NEG (NEG) Urine RBC 0-2 (0) /HPF Urine WBC 0-2 (0-4) /HPF Ur Squamous Epith Cells TRACE /LPF Urine Bacteria TRACE /LPF Urine Test NEGATIVE (NEGATIVE) Urine Opiates Screen Not Detected (Not Detect) Ur Barbiturates Screen Not Detected (Not Detect) Ur Phencyclidine Scrn Not Detected (Not Detect) Ur Amphetamines Screen Not Detected (Not Detect) U Benzodiazepines Scrn Not Detected (Not Detect) Urine Cocaine Screen Not Detected (Not Detect) U Marijuana (THC) Screen Not Detected (Not Detect) 10/07/20 10/07/20 Range/Units 03:05 03:05 WBC (4.8-10.8) X10*3/uL RBC (4.20-5.50) X10*6/uL Hgb (12.0-16.0) g/dl Hct (37-47) % MCV (80-98) fL MCH (27.0-33.0) pg MCHC (31.0-35.0) g/dl RDW (11.0-16.0) % Plt Count (160-400) X10*3/uL MPV (9.4-12.3) fL Immature Gran % (Auto) (0.0-0.4) % Neut % (Auto) (45-73) % Lymph % (Auto) (20-40) % Garden % (Auto) (2-11) % Eos % (Auto) (0-4) % Baso % (Auto) (0-2) % Lymph # (Auto) (1.2-4.9) X10*3/uL [place] # (Auto) (0.1-1.2) X10*3/uL Eos # (Auto) (0.0-0.4) X10*3/uL Baso # (Auto) (0.0-0.2) X10*3/uL Abs Immat Gran (auto) (0.00-0.03) X10*3/uL Absolute Neuts (auto) (2.0-8.3) X10*3/uL Absolute Nucleated RBC (0.0-0.012) X10*3/uL Nucleated RBC % (auto) (0.0-0.2) /100WBC Sodium 142 (135-145) mmol/L Potassium 4.2 (3.3-5.1) mmol/L Chloride 107 (96-108) mmol/L Carbon Dioxide 27 (22-29) mmol/L Anion Gap 12 (12-20) BUN 8 L (9-16) mg/dL Creatinine 0.75 (0.5-1.4) mg/dL Estim Creat Clear Calc 97.8 Estimated GFR > 60 Random Glucose 119 H (60-115) mg/dL Calcium 9.1 (8.4-10.2) mg/dL Total Bilirubin 1.0 (0.0-1.0) mg/dL Direct Bilirubin 0.5 (0.0-0.5) mg/dL AST 15 (5-31) U/L ALT 9 (0-31) U/L Alkaline Phosphatase 31 L (39-117) U/L Troponin I High Sens < 3.5 (<3.5-17.0) ng/L Total Protein 7.1 (6.5-8.0) g/dL Albumin 4.5 (3.5-5.0) g/dL Lipase 53 (8-78) U/L Urine Color Urine Appearance Urine pH (5.0-8.0) Ur Specific [place] (1.005-1.025) Urine Protein (NEG-TRACE) MG/DL Urine Glucose (UA) (NEG) MG/DL Urine Ketones (NEG) MG/DL Urine Blood (NEG) Urine Nitrite (NEG) Ur Leukocyte Esterase (NEG) Urine RBC (0) /HPF Urine WBC (0-4) /HPF Ur Squamous Epith Cells /LPF Urine Bacteria /LPF Urine Test (NEGATIVE) Urine Opiates Screen (Not Detect) Ur Barbiturates Screen (Not Detect) Ur Phencyclidine Scrn (Not Detect) Ur Amphetamines Screen (Not Detect) U Benzodiazepines Scrn (Not Detect) Urine Cocaine Screen (Not Detect) U Marijuana (THC) Screen (Not Detect) Imaging Data CT scan - head: Radiologist's impression: No evidence for acute intracranial injury. Cervical spine CT: Radiologist's impression: No acute cervical spine injury. Chest x-ray: Radiologist's impression: No acute pathology. ECG Data Interpretation: Normal sinus rhythm at 88 beats per minutes, normal interval, normal axis, artifact in V4 and V5 but no acute ST-T changes. Discharge Plan Discharge Prescriptions: No Action loratadine 10 mg tablet 10 mg PO DAILY Qty: 30 RF: 5 Flovent Diskus 50 mcg/actuation blister with device 1 inh inhalation BID 30 Days Qty: 60 RF: 5 albuterol sulfate 90 mcg/actuation HFA aerosol inhaler 2 puff inhalation Q4H PRN (Reason: bronchospasm) 30 Days Qty: 8.5 RF: 4 propranolol 10 mg tablet 10 mg PO BID Qty: 60 RF: 4 dicyclomine 10 mg capsule 20 mg PO QID PRN (Reason: ibs/spasms) 30 Days Qty: 120 RF: 2 clonazepam 1 mg tablet 1 tab PO TID PRN (Reason: Anxiety) RF: 0 fluticasone propionate 50 mcg/actuation spray,suspension 1 spray intranasal DAILY RF: 0 Fluzone Quad 2902-2022 (PF) 60 mcg (15 mcg x 4)/0.5 mL syringe IM RF: 0
[2020-10-07 03:10] LABS: Basophils Percent Auto 0.4 % (0-2); Eosinophils Percent Auto 0.4 % (0-4); Hematocrit 42.6 % (37-47); Hemoglobin 14.8 g/dl (12.0-16.0); Imm Gran Abs Auto 0.02 X10*3/uL (0.00-0.03); Imm Gran Pct Auto 0.2 % (0.0-0.4); Lymphocytes Absolute Auto 0.9 X10*3/uL (1.2-4.9); Lymphocytes Percent Auto 11.3 % (20-40); Mean Corpuscular HGB Conc 34.7 g/dl (31.0-35.0); Mean Corpuscular Hemoglobin 30.8 pg (27.0-33.0); Mean Corpuscular Volume 88.8 fL (80-98); Mean Platelet Volume 9.6 fL (9.4-12.3); Monocytes Absolute Auto 0.3 X10*3/uL (0.1-1.2); Monocytes Percent Auto 3.6 % (2-11); Neutrophils Absolute Auto 6.9 X10*3/uL (2.0-8.3); Neutrophils Percent Auto 84.1 % (45-73); Platelet Count 311 X10*3/uL (160-400); Red Cell Distribution Width 11.6 % (11.0-16.0); White Blood Count 8.2 X10*3/uL (4.8-10.8)
[2020-10-07 03:11] LABS: MANUAL DIFF FLAG NO
[2020-10-07 03:13] LABS: Appearance Urine CLEAR; Color Urine YELLOW; Glucose Urine UA NEG (NEG); Leukocyte Esterase Urine NEG (NEG); Nitrite Urine NEG (NEG); Specific Gravity - Urine <= 1.005 (1.005-1.025); Urine Blood TRACE (NEG); Urine Ketones NEG (NEG); Urine Protein NEG (NEG-TRACE)
[2020-10-07] MEDS: 0.9 % Sodium Chloride 1,000 ML 999 ML IVCONT (03:22)
[2020-10-07 03:23] LABS: Bacteria Urine TRACE /LPF; RBC Urine 0-2 /HPF (0); Squamous Epithelial Cell Urine TRACE /LPF; UPreg QC Valid YES; Urine Pregnancy NEGATIVE (NEGATIVE); WBC Urine 0-2 /HPF (0-4)
[2020-10-07 03:34] LABS: Troponin-I High Sensitivity < 3.5 ng/L (<3.5-17.0)
[2020-10-07 03:39] LABS: Amphetamine Screen Urine Not Detected (Not Detect); Barbiturates, Urine Not Detected (Not Detect); Benzodiazepines Screen Urine Not Detected (Not Detect); Cannabinoid Screen Urine Not Detected (Not Detect); Cocaine Screen Urine Not Detected (Not Detect); Opiate Screen Urine Not Detected (Not Detect); Phencyclidine Screen Urine Not Detected (Not Detect)
[2020-10-07 03:40] LABS: Alanine Aminotransferase 9 U/L (0-31); Albumin Level 4.5 g/dL (3.5-5.0); Alkaline Phosphatase 31 U/L (39-117); Anion Gap 12 (12-20); Aspartate Amino Transferase 15 U/L (5-31); Bilirubin Direct 0.5 mg/dL (0.0-0.5); Blood Urea Nitrogen 8 mg/dL (9-16); Calcium 9.1 mg/dL (8.4-10.2); Carbon Dioxide 27 mmol/L (22-29); Chloride 107 mmol/L (96-108); Creatinine Clr Calc Pharmacy 97.8; Estimated Glomerular Filt Rate > 60; Glucose Random 119 mg/dL (60-115); Lipase 53 U/L (8-78); Potassium 4.2 mmol/L (3.3-5.1); Sodium 142 mmol/L (135-145); Total Protein 7.1 g/dL (6.5-8.0)
[2020-10-07] MEDS: levETIRAcetam 500 MG TABLET PO (04:45)
== END 2020-10-07 05:18 | disposition home or self-care (01) ==
PROVIDERS: Emergency Provider Emergency Medicine; PCP Nurse Practitioner Family
DX: G40.909 Epilepsy, unspecified, not intractable, without status epilepticus (principal); S01.512A Laceration without foreign body of oral cavity, initial encounter; R52 Pain, unspecified; W06.XXXA Fall from bed, initial encounter; Y93.84 Activity, sleeping; Y92.013 Bedroom of single-family (private) house as the place of occurrence of the external cause; Y99.9 Unspecified external cause status
CPT/HCPCS: 36415; 70450; 71045; 72125; 80048; 80076; 80307; 81001; 81025; 83690; 84484; 85025; 93005; 96360; 99284; 99285

== ENCOUNTER → 2020-10-10 09:48 | Outpatient (BNVA) | payer BC, MEDICARE, MEDICAID, SELFPAY | PROVIDERS: PCP Nurse Practitioner Family; Visit Provider Nurse Practitioner ==

== ENCOUNTER → 2020-10-22 12:58 | Outpatient (REF) | payer BC, MEDICARE, MEDICAID, SELFPAY ==
--- NOTE | 2020-10-22 13:02 | HM_ITS ---
TEST PERFORMED: Cardiac event monitor. ENROLLMENT PERIOD: 10/22/2020 to 11/21/2020 - 30 days. REQUESTING PHYSICIAN: Felix Rivera MD. INDICATION: Tachycardia. FINDINGS: In the above monitoring period, underlying rhythm was sinus. The rates ranged from 56 beats to 132 beats per minute. There is evidence of a premature atrial contractions and premature ventricular contractions with 1 ventricular couplet. There is 1 strip that is noted as paroxysmal atrial fibrillation, but appears to be rather artifactual. Another strip labeled as paroxysmal atrial fibrillation seems too short only for 5-6 beats and could be atrial tachycardia. CONCLUSION: Studies positive for sinus rhythm; PACs; PVCs; ventricular couplet; possible short run of PACs versus atrial tachycardia, but very brief. Benito Nur MD HS/MODL / [id number] MTDD
== END ==
LOC: HO.CARD 12:58
PROVIDERS: Visit Provider Internal Medicine Cardiovascular Disease
DX: R00.0 Tachycardia, unspecified (principal); R55 Syncope and collapse
CPT/HCPCS: 93270; 93272

== ENCOUNTER → 2020-10-29 10:12 | Outpatient (REF) | payer BC, MEDICARE, MEDICAID, SELFPAY ==
--- NOTE | 2020-10-29 10:15 | CA_ITS ---
Transthoracic Echocardiogram Patient (Last, First, Middle): Wen Stuart M Gender: Female Date of : 1985 Age: 35 Procedure Date: 10/29/2020 Procedure Type: Transthoracic Echocardiogram Location: OP Height: 172.72 cm Weight: 67.13 kg BSA: 1.80 m2 Heart Rate: bpm BP: 111 / 68 mmHg Car Distributor: KRIS Referring MD: Felix Rivera MD Symptoms: R00.0 - Tachycardia, unspecified Study Quality: Good ECG Rhythm: Sinus Conclusions: - The left ventricular systolic function is normal. The visually estimated ejection fraction is between 60-65%. - There is mild mitral valve regurgitation. - Trace to mild aortic regurgitation. Findings Left Ventricle Normal left ventricular cavity size. There is normal left ventricular wall thickness. The left ventricular systolic function is normal. The visually estimated ejection fraction is between 60-65%. There is no evidence of regional wall motion abnormalities. Diastolic function is normal for age. Right Ventricle Normal right ventricular cavity size and systolic function. Atria Both atria are normal in size. Aortic Valve There is a normal trileaflet aortic valve. There is no aortic valve stenosis. Trace to mild aortic regurgitation. Mitral Valve The mitral valve appears normal. There is mild mitral valve regurgitation. There is no mitral valve stenosis. Pulmonic Valve The pulmonic valve was not well visualized. Tricuspid Valve Normal tricuspid valve structure. There is trace tricuspid valve regurgitation. The pulmonary artery systolic pressure is normal. Great Vessels The aortic annulus, sinuses of valsalva, and asc aorta are normal in size. Venous The inferior vena cava is normal in size and collapses greater than 50% with inspiration. Pericardium/Pleural There is no evidence of pericardial effusion. Prior Study Comparison No prior study available for comparison. Measurements M-Mode Liner Measurements Normals - Women/Men IVSd: 0.89 0.6-0.9/0.6-1.0 cm LVIDd: 5.22 3.9-5.3/4.2-5.9 cm LVIDd Index: 2.90 1.9-3.2 cm/m2 LVIDs: 3.07 2.0-3.8 cm LVPWd: 0.74 0.6-0.9/0.6-1.0 cm LV Mass: 186.06 67-162/88-224g LV Mass Index: 103.37 43-95/49-115 g/m2 M-Mode Volumes LV EDV: 131.00 LV ESV: 37.00 2D Linear Measurements IVSd: 0.71 0.6-0.9/0.6-1.0 cm LVIDd: 4.94 3.9-5.3/4.2-5.9 cm LVIDd Index: 2.74 2.4-3.2/2.2-3.1 cm/m2 LVIDs: 3.33 2.0-3.6 cm LVPWd: 0.73 0.7-1.1 cm Ao Root: 2.30 2.1-3.5 cm LA Diam: 3.30 2.7-3.8/3.0-4.0 cm LAIDs Index: 1.83 1.5-2.3 cm/m2 LV Mass: 144.33 67-162/88-224 g LV Mass Index: 80.18 43-95/49-115 g/m2 LVOT Diam: 2.30 3.0+(-)1.3 cm 2D Systolic Function EF 4C: 62.90 >55% EF 2C: 67.90 >55% EF BiP: 66.70 >55% M-Mode Systolic Function FS: 41.20 27-47/25-43% LVEF: 71.80 >55% Mitral Valve MV Pk E: 0.98 MV PK A: 0.44 MV Decel Time: 137.00 E/A: 2.20 E'Lateral: 12.60 E/E' Lat: 7.70 PHT: 40.00 MVA PHT: 5.50 Decel Sharp: 7.10 Aortic Valve AoV Pk Reji: 1.38 AoV Pk Grad: 8.00 LVOT LVOT Pk Reji: 1.05 LVOT Mn Reji: 0.65 LVOT VTI: 0.24 LVOT Pk Grad: 4.00 LVOT Mn Grad: 2.00 LVOT Diam: 2.30 LVOT Area: 4.15 Diastolic Function MV Pk E: 0.98 MV Pk A: 0.44 E/A: 2.20 E' Laterial: 12.60 E/E' Lat: 7.70 Tricuspid Valve TR Pk Reji: 2.05 TR Pk Grad: 17.00 RA Press: 3.00 RVSP: 20.00 Great Vessels Aorta Ao Root-2D: 2.30 2.0-3.7 cm Ao Asc: 2.40 2.1-3.4 cm Ao Arch: 2.40 Updated in Other Vendor System with Status of Final Benito Nur MD electronically signed on 10/29/2020 12:04:12 PM with status of Final
== END ==
LOC: HO.CARD 10:12
PROVIDERS: Visit Provider Internal Medicine Cardiovascular Disease
DX: R00.0 Tachycardia, unspecified (principal); R00.2 Palpitations; R55 Syncope and collapse
CPT/HCPCS: 93306

== ENCOUNTER → 2020-11-16 08:18 | Outpatient (BNVA) | payer BC, MEDICARE, MEDICAID, SELFPAY | PROVIDERS: PCP Nurse Practitioner Family; Visit Provider Nurse Practitioner | DX: K58.1 Irritable bowel syndrome with constipation (principal); K64.9 Unspecified hemorrhoids ==

== ENCOUNTER → 2020-11-28 09:09 | Outpatient (BNVA) | payer BC, MEDICARE, MEDICAID, SELFPAY | PROVIDERS: PCP Nurse Practitioner Family; Visit Provider Internal Medicine Cardiovascular Disease ==

== ENCOUNTER 2021-01-04 17:54 | Outpatient (REF) | payer BC, MEDICARE, MEDICAID, SELFPAY ==
--- NOTE | ~2021-01-04 | MR_ITS ---
EXAMINATION: MR BRAIN WITHOUT CONTRAST CLINICAL INFORMATION: Seizure disorder. COMPARISON: None. TECHNIQUE: Multiplanar, multisequence imaging of the brain was performed without contrast. FINDINGS: No diffusion abnormalities are identified to suggest an acute infarct. The ventricles are normal in size. No mass effect or midline shift is seen. Nonspecific very mild left frontoparietal white matter signal changes are visible. No extra-axial fluid collections are seen. The brainstem is normal. The right cerebellar tonsil is low-lying, approximately 7 mm mm caudal to the level of foramen magnum. No cord compression or syrinx is seen. The gradient refocused acquisition demonstrates no pathologic magnetic susceptibility artifact to indicate underlying acute or chronic blood products. No signal abnormality is seen in the medial temporal lobes. The marrow signal is normal. The major intracranial flow voids at the level of the [place] are preserved. The dural venous sinus flow voids are maintained. The mastoid air cells and paranasal sinuses are well aerated. MR/MR head/brain wo con IMPRESSION: No acute process. Low-lying right cerebellar tonsil, consistent with a Chiari I malformation. Nonspecific mild left frontoparietal white matter signal changes.
== END 2021-01-04 17:55 | disposition home or self-care (01) ==
LOC: HO.MRI 17:54
PROVIDERS: Visit Provider Psychiatry & Neurology Neurology
DX: G40.909 Epilepsy, unspecified, not intractable, without status epilepticus (principal)
CPT/HCPCS: 70551

== ENCOUNTER 2021-01-09 13:04 | Outpatient (REF) | payer BC, MEDICARE, MEDICAID, SELFPAY ==
[2021-01-09 15:02] LABS: Syphilis Screen Nonreactive (Nonreactive)
[2021-01-09 15:23] LABS: Erythrocyte Sedimentation Rate 5 MM/HR (0-20)
[2021-01-10 05:17] LABS: Lyme Abs Screen <0.90 index
[2021-01-11 16:01] LABS: Anti Nuclear Antibody Pattern Mitotic, Centrosome; Anti Nuclear Antibody Screen POSITIVE (NEGATIVE); Anti Nuclear Antibody Titer 1:40 titer
[2021-01-12 23:41] LABS: Angiotensin Converting Enzyme 18 U/L (9-67)
== END 2021-01-09 13:05 | disposition home or self-care (01) ==
LOC: HO.LAB 13:04
PROVIDERS: PCP Nurse Practitioner Family; Visit Provider Psychiatry & Neurology Neurology
DX: G40.909 Epilepsy, unspecified, not intractable, without status epilepticus (principal)
CPT/HCPCS: 36415; 82164; 85652; 86038; 86039; 86617; 86618; 86780

== ENCOUNTER 2021-01-21 10:07 | Outpatient (REF) | payer BC, MEDICARE, MEDICAID, SELFPAY ==
[2021-01-23 13:07] LABS: Anti DNA DS Antibody 2 IU/mL
== END 2021-01-21 10:08 | disposition home or self-care (01) ==
LOC: HO.LAB 10:07
PROVIDERS: PCP Nurse Practitioner Family; Visit Provider Psychiatry & Neurology Neurology
DX: R76.8 Other specified abnormal immunological findings in serum (principal)
CPT/HCPCS: 36415; 86225

== ENCOUNTER → 2021-06-27 11:05 | Outpatient (BNVA) | payer BC, MEDICARE, MEDICAID, SELFPAY | PROVIDERS: PCP Nurse Practitioner Family; Referring Provider Nurse Practitioner Family; Visit Provider Internal Medicine Cardiovascular Disease ==

== ENCOUNTER → 2021-07-15 11:11 | Outpatient (REF) | payer BC, SELFPAY ==
--- NOTE | 2021-07-15 11:16 | HM_ITS ---
Conclusion: 1. Patient was monitored for total period of 13 days and 13 hours 2. Baseline was normal sinus rhythm with average heart of 82 beats per minute 3. Total 14 PVCs accounting for less than 0.01% a cardiac for very rare PVCs 4. No patient reported events MTDD
== END ==
LOC: HO.CARD 11:11
PROVIDERS: PCP Nurse Practitioner Family; Visit Provider Internal Medicine Cardiovascular Disease
DX: R00.2 Palpitations (principal)
CPT/HCPCS: 93246

== ENCOUNTER 2021-08-12 09:07 | Outpatient (REF) | payer BC, MEDICARE, MEDICAID, SELFPAY ==
[2021-08-12 12:15] LABS: Appearance Urine CLEAR; Color Urine YELLOW; Glucose Urine UA NEG (NEG); Leukocyte Esterase Urine NEG (NEG); Nitrite Urine NEG (NEG); Urine Blood NEG (NEG); Urine Ketones NEG (NEG); Urine Protein NEG (NEG-TRACE)
[2021-08-12 12:35] LABS: Alanine Aminotransferase 19 U/L (0-31); Albumin Level 4.1 g/dL (3.5-5.0); Alkaline Phosphatase 34 U/L (39-117); Anion Gap 10 (12-20); Aspartate Amino Transferase 15 U/L (5-31); Bilirubin Total 0.9 mg/dL (0.0-1.0); Blood Urea Nitrogen 10 mg/dL (9-16); Calcium 9.1 mg/dL (8.4-10.2); Carbon Dioxide 22 mmol/L (22-29); Chloride 112 mmol/L (96-108); Cholesterol 133 mg/dL; Estimated Glomerular Filt Rate > 60; Glucose Fasting 100 mg/dL (60-99); HDL Cholesterol 69 mg/dL; LDL Cholesterol Calculated 50 mg/dl; Potassium 3.9 mmol/L (3.3-5.1); Sodium 140 mmol/L (135-145); Total Protein 6.8 g/dL (6.5-8.0); Triglycerides 74 mg/dL
== END 2021-08-12 09:08 | disposition home or self-care (01) ==
LOC: HO.HMGCLDS 09:07
PROVIDERS: PCP Nurse Practitioner Family; Visit Provider Nurse Practitioner Family
DX: Z00.00 Encounter for general adult medical examination without abnormal findings (principal); R00.2 Palpitations
CPT/HCPCS: 36415; 80053; 80061; 81003; 84443

== ENCOUNTER 2022-01-09 08:41 | Outpatient (REF) | payer BC, MEDICARE, MEDICAID, SELFPAY ==
[2022-01-09 11:28] LABS: Basophils Percent Auto 0.8 % (0-2); Eosinophils Absolute Auto 0.1 X10*3/uL (0.0-0.4); Eosinophils Percent Auto 1.6 % (0-4); Hematocrit 42.1 % (37.0-47.0); Hemoglobin 13.9 g/dl (12.0-16.0); Imm Gran Abs Auto 0.01 X10*3/uL (0.00-0.03); Imm Gran Pct Auto 0.2 % (0.0-0.4); Lymphocytes Absolute Auto 1.5 X10*3/uL (1.2-4.9); Lymphocytes Percent Auto 29.8 % (20-40); MANUAL DIFF FLAG NO; Mean Corpuscular Hemoglobin 29.5 pg (27.0-33.0); Mean Corpuscular Volume 89.4 fL (80.0-98.0); Mean Platelet Volume 10.3 fL (9.4-12.3); Monocytes Absolute Auto 0.4 X10*3/uL (0.1-1.2); Monocytes Percent Auto 7.4 % (2-11); Neutrophils Absolute Auto 2.9 x10*3/uL (2.0-8.3); Neutrophils Percent Auto 60.2 % (45-73); Platelet Count 320 X10*3/uL (160-400); Red Blood Count 4.71 X10*6/uL (4.20-5.50); Red Cell Distribution Width 13.1 % (11.0-16.0); White Blood Count 4.9 X10*3/uL (4.8-10.8)
[2022-01-09 11:36] LABS: Appearance Urine CLEAR; Color Urine YELLOW; Glucose Urine UA NEG (NEG); Leukocyte Esterase Urine NEG (NEG); Nitrite Urine NEG (NEG); Urine Blood NEG (NEG); Urine Ketones NEG (NEG); Urine Protein NEG (NEG-TRACE)
[2022-01-09 12:22] LABS: Alanine Aminotransferase 20 U/L (0-31); Albumin Level 4.5 g/dL (3.5-5.0); Alkaline Phosphatase 33 U/L (39-117); Anion Gap 13 (12-20); Aspartate Amino Transferase 13 U/L (5-31); Bilirubin Total 0.7 mg/dL (0.0-1.0); Blood Urea Nitrogen 15 mg/dL (9-16); Calcium 9.6 mg/dL (8.4-10.2); Carbon Dioxide 20 mmol/L (22-29); Chloride 109 mmol/L (96-108); Cholesterol 117 mg/dL; Estimated Glomerular Filt Rate > 60; Glucose Fasting 105 mg/dL (60-99); HDL Cholesterol 57 mg/dL; LDL Cholesterol Calculated 55 mg/dl; Potassium 4.2 mmol/L (3.3-5.1); Sodium 138 mmol/L (135-145); Total Protein 7.4 g/dL (6.5-8.0); Triglycerides 28 mg/dL
[2022-01-09 12:23] LABS: TSH reflex Free T4 1.11 uIU/mL (0.32-4.0)
[2022-01-09 12:45] LABS: Folate 19.7 ng/mL (> or = 4.0); Vitamin B12 519 pg/mL (200-900)
[2022-01-09 13:49] LABS: CT PCR NOT DETECTED (Not Detect.); NG PCR NOT DETECTED (Not Detect.)
[2022-01-10 04:20] LABS: HIV AB/AG Nonreactive (Nonreactive); HIV Num 1 0.09 S/CO (0.00-0.99)
[2022-01-10 08:38] LABS: Syphilis Screen Nonreactive (Nonreactive)
== END 2022-01-09 08:42 | disposition home or self-care (01) ==
LOC: HO.HMGCLDS 08:41
PROVIDERS: PCP Nurse Practitioner Family; Visit Provider Nurse Practitioner Family
DX: Z11.3 Encounter for screening for infections with a predominantly sexual mode of transmission (principal); Z11.4 Encounter for screening for human immunodeficiency virus [HIV]; F33.9 Major depressive disorder, recurrent, unspecified
CPT/HCPCS: 80053; 80061; 81003; 82607; 82746; 84443; 85025; 86780; 87389; 87491; 87591

== ENCOUNTER 2022-04-04 23:18 | Emergency (ER) | payer BC, MEDICARE, MEDICAID, SELFPAY ==
--- NOTE | ~2022-04-04 | CT_ITS ---
EXAMINATION: CT HEAD WITHOUT CONTRAST CT CERVICAL SPINE WITHOUT CONTRAST CLINICAL INFORMATION: EtOH. Fall. COMPARISON: MRI head dated 01/04/2021 TECHNIQUE: Multidetector CT imaging of the head and cervical spine was performed without the use of intravenous contrast. Multiplanar reformats are reviewed. This CT examination was performed using dose optimization techniques as appropriate, variously including the following: *Automated exposure control *Adjustment of mA and/or kV according to patient size (this includes techniques or standardized protocols for targeted exams where dose is matched to indication/reason for exam; i.e. extremities or head) *Use of iterative reconstruction technique DLP: 1143 mGy-cm. FINDINGS: There is no evidence of acute intracranial hemorrhage or territorial infarction. No abnormal mass effect or midline shift is seen. Fowler to white matter differentiation is well preserved. No extra-axial fluid collections are identified. The ventricles are normal in size. There is no abnormal attenuation within the brain parenchyma. The osseous structures and soft tissues are normal. The mastoid air cells and visualized portions of the paranasal sinuses are well-aerated. Atlantooccipital alignment is maintained. The vertebral bodies and posterior elements align normally. No acute fracture or subluxation. Vertebral body heights are maintained. No significant degenerative changes are appreciated. No central canal or foraminal narrowing. The paraspinal soft tissues are unremarkable. The imaged lung apices are clear CT/CT head/brain wo con IMPRESSION: No acute intracranial pathology. No cervical spine fracture or malalignment.
--- NOTE | ~2022-04-04 | CT_ITS ---
EXAMINATION: CT HEAD WITHOUT CONTRAST CT CERVICAL SPINE WITHOUT CONTRAST CLINICAL INFORMATION: EtOH. Fall. COMPARISON: MRI head dated 01/04/2021 TECHNIQUE: Multidetector CT imaging of the head and cervical spine was performed without the use of intravenous contrast. Multiplanar reformats are reviewed. This CT examination was performed using dose optimization techniques as appropriate, variously including the following: *Automated exposure control *Adjustment of mA and/or kV according to patient size (this includes techniques or standardized protocols for targeted exams where dose is matched to indication/reason for exam; i.e. extremities or head) *Use of iterative reconstruction technique DLP: 1143 mGy-cm. FINDINGS: There is no evidence of acute intracranial hemorrhage or territorial infarction. No abnormal mass effect or midline shift is seen. Fowler to white matter differentiation is well preserved. No extra-axial fluid collections are identified. The ventricles are normal in size. There is no abnormal attenuation within the brain parenchyma. The osseous structures and soft tissues are normal. The mastoid air cells and visualized portions of the paranasal sinuses are well-aerated. Atlantooccipital alignment is maintained. The vertebral bodies and posterior elements align normally. No acute fracture or subluxation. Vertebral body heights are maintained. No significant degenerative changes are appreciated. No central canal or foraminal narrowing. The paraspinal soft tissues are unremarkable. The imaged lung apices are clear CT/CT cervical spine wo con IMPRESSION: No acute intracranial pathology. No cervical spine fracture or malalignment.
[2022-04-04 23:23] VITALS: BP 130/81; BP 138/98; PULSE 104; PULSE 85; RESP 20; O2SAT 96; O2SAT 98; BMI 29.9
--- NOTE | 2022-04-04 23:31 | ED.ALCOHOL ---
HPI - Alcohol General Chief Complaint: Fall Stated Complaint: fall Time Seen by Provider: 04/04/22 23:26 Source: patient and EMS Mode of arrival: EMS Limitations: no limitations History of Present Illness HPI narrative: Patient comes to the emergency room complaining of a head injury. Patient states she was in a constitution party with a friend, patient had 3 beers and 1 shot, patient took a few steps backwards, there was a dog leash on the floor, patient tripped and landed backwards. Patient states that she did not lose consciousness, patient on blood thinners. Patient has mild neck pain. Otherwise, patient denies pain anywhere else. Related Data Home Medications Medication Instructions Recorded Confirmed flu vacc [id number] 6mos up(PF) 60 ml IM 07/13/20 02/19/22 mcg(15 mcgx4)/0.5 mL IM syringe clonazepam 1 mg tablet 2 mg PO BID Anxiety 06/27/21 02/19/22 topiramate 200 mg tablet 200 mg PO BID 06/27/21 02/19/22 fluvoxamine 50 mg tablet 50 mg PO BID 10/22/21 02/19/22 cetirizine 10 mg tablet 10 mg PO DAILY 12/10/21 02/19/22 mometasone 50 mcg/actuation nasal 2 spray intranasal DAILY 12/10/21 02/19/22 spray omeprazole 40 mg capsule,delayed 40 mg PO DAILY PRN 02/19/22 02/19/22 release Previous Rx's Medication Instructions Recorded dicyclomine 10 mg capsule 20 mg PO QID PRN spasms/bowels 30 10/20/21 days #120 caps betamethasone dipropionate 0.05 % 1 appl topical DAILY PRN skin 12/10/21 topical cream irritation 30 days #45 grams levonorgestrel 1.5 mg tablet 3 mg PO ONCE 1 day #2 tabs 03/18/22 albuterol sulfate 90 mcg/actuation 2 puff inhalation Q4H PRN for 03/19/22 aerosol inhaler muscle spasm #8.5 ea Allergies Allergy/AdvReac Type Severity Reaction Status Date / Time Sulfa (Sulfonamide Allergy Unknown Itching Verified 02/19/22 13:55 Antibiotics) sulfamethoxazole Allergy Unknown itchy Verified 02/19/22 13:55 [From Bactrim] trimethoprim [From Bactrim] Allergy Unknown itchy Verified 02/19/22 13:55 DUST Allergy Unknown RUNNY NOSE Uncoded 02/19/22 13:55 SEASONAL ALLERGIES Allergy Unknown UNKNOWN Uncoded 02/19/22 13:55 Review of Systems Review of Systems: Constitutional : No Weight loss, No Fever, No Chills, No Night Sweats, No Fatigue, No Malaise ENT/Mouth : No Hearing loss, No Ear Pain, No Nasal Congestion, No Sinus Pain, No Hoarseness, No sore throat, No Rhinorrhea, No Swallowing Difficulty Eyes: No Eye Pain, No Swelling, No Redness, No Foreign Body, No Discharge, No Vision Changes Cardiovascular : No Chest Pain, No SOB, No Dyspnea on Exertion, No Orthopnea, No Edema, No Palpitations Respiratory : No Cough, No Sputum, No Wheezing, No Smoke Exposure, No Dyspnea Gastrointestinal : No Nausea, No Vomiting, No Diarrhea, No Constipation, No abdominal Pain, No Hematochezia, No Melena Genitourinary : no irregular bleeding, No Dysuria, No Urinary Frequency, No Hematuria, No Urinary Incontinence, No Urgency, No Flank Pain, No Urinary Flow Changes, No Hesitancy Musculoskeletal : No joint pain, No Myalgias, No Joint Swelling, mild posterior neck pain Skin : No Skin Lesions, No rash Neuro : No Weakness, No Numbness, No Paresthesias, No Loss of Consciousness, No Dizziness, No Headache Psych : No Anxiety/Panic, No Depression, No SI/HI/AH/VH, No Social Issues, Heme/Lymph: No Bruising, No Bleeding,No Lymphadenopathy Endocrine : No Polyuria, No Polydipsia, No Temperature Intolerance [facility] Past Medical History Medical History Bipolar 1 disorder History of depression History of irritable bowel syndrome Hx gestational diabetes Migraine aura without headache (migraine equivalents) OCD (obsessive compulsive disorder) PTSD (post-traumatic stress disorder) PVC (premature ventricular contraction) Seizure disorder Suicidal ideations Tachycardia Vertigo Family History Family History (Updated 12/10/21 @ 09:13 by Tierney Diehl CMA) Father No problems noted. Mother HTN (hypertension) Diabetes High cholesterol Rheumatoid arthritis Maternal Grandfather No problems noted. Paternal Grandfather Substance use disorder Social History Social History Household Members: Children Housing: Condominium Alcohol intake: never Patient Tobacco Use Status: Current everyday Tobacco user Cigarettes Per Day: 6 e-Cigarette/Vaping Use: Never Used Second Hand Smoke Exposure: Yes Advance Directives: No Current occupational status: unemployed Cognitive needs: No Hearing needs: No Vision needs: No Physical Exam ED Vital Signs: Vital Signs - 24 hr 04/04/22 23:23 Pulse Rate 85 Respiratory Rate 20 Blood Pressure 130/81 Pulse Oximetry 96 Oxygen Delivery Method Room Air BMI result Body Mass Index 29.9 Const Other: Appearance: Alert. Oriented X3. No acute distress. Coherent, clinically sober Eyes: Pupils equal, round and reactive to light. ENT: Pharynx normal. Neck: On C-spine precautions, no palpable step-offs, mild pain to palpation over the left side of the neck CVS: Normal heart rate and rhythm. Pulses normal. Normal S1 and S2 Respiratory: No respiratory distress. Breath sounds normal. No Wheezing. No rales Abdomen: Soft and nontender. No rigidity. No distention. Skin: Skin warm and dry. Normal skin color. Normal skin turgor. Extremities: No lower extremity edema. No Lacerations. No Rash Neuro: Oriented X 3. No motor deficit. No sensory deficit. Moving all extremities. No slurred speech. CN 2 through 12 grossly intact Psych: calm, cooperative, normal affect Course Course Course Narrative: Head CT and cervical spine CT pending Head CT and neck CT did not show any acute pathology. Patient is clinically sober. Steady gait, alert and oriented x3. Patient ready for discharge MDM - Alcohol Imaging Data Head and cervical spine CT: Radiologist's impression: [place] [id number] CT Scan Report Signed Patient: Wen Stuart MR#: [id number] : 1985 Acct:[id number] Age/Sex: 36 / F ADM Date: 04/04/22 Loc: HO.ED Attending Dr: Ordering Physician: Beverly Bragg MD Date of Service: 04/05/22 Procedure(s): CT cervical spine wo con Accession Number(s): [id number] cc: Beverly Bragg MD~ EXAMINATION: CT HEAD WITHOUT CONTRAST CT CERVICAL SPINE WITHOUT CONTRAST CLINICAL INFORMATION: EtOH. Fall.? COMPARISON: MRI head dated 01/04/2021 TECHNIQUE: Multidetector CT imaging of the head and cervical spine was performed without the use of intravenous contrast. Multiplanar reformats are reviewed. This CT examination was performed using dose optimization techniques as appropriate, variously including the following: *Automated exposure control *Adjustment of mA and/or kV according to patient size (this includes techniques or standardized protocols for targeted exams where dose is matched to indication/reason for exam; i.e. extremities or head) *Use of iterative reconstruction technique DLP: 1143 mGy-cm. FINDINGS: There is no evidence of acute intracranial hemorrhage or territorial infarction. No abnormal mass effect or midline shift is seen. Fowler to white matter differentiation is well preserved. No extra-axial fluid collections are identified. The ventricles are normal in size. There is no abnormal attenuation within the brain parenchyma. The osseous structures and soft tissues are normal. The mastoid air cells and visualized portions of the paranasal sinuses are well-aerated. Atlantooccipital alignment is maintained. The vertebral bodies and posterior elements align normally. No acute fracture or subluxation. Vertebral body heights are maintained. No significant degenerative changes are appreciated. No central canal or foraminal narrowing. The paraspinal soft tissues are unremarkable. The imaged lung apices are clear ? CT/CT cervical spine wo con IMPRESSION: No acute intracranial pathology. No cervical spine fracture or malalignment. Discharge Plan Discharge Clinical Impression: Fall, Alcohol intoxication Patient Disposition: Home, Self-Care Instructions: Alcohol Intoxication (ED) Additional Instructions: Please follow-up with your primary care physician tomorrow. If you have any worsening or new symptoms, please return to the emergency room or call 911 Prescriptions: No Action dicyclomine 10 mg capsule 20 mg PO QID PRN (Reason: spasms/bowels) 30 Days Qty: 120 2RF levonorgestrel 1.5 mg tablet 3 mg PO ONCE 1 Days Qty: 2 1RF albuterol sulfate 90 mcg/actuation HFA aerosol inhaler 2 puff inhalation Q4H PRN (Reason: for muscle spasm) Qty: 8.5 0RF clonazepam 1 mg tablet 2 mg PO BID Fluzone Quad [id number] (PF) 60 mcg (15 mcg x 4)/0.5 mL syringe IM mometasone 50 mcg/actuation spray,non-aerosol 2 spray intranasal DAILY Rx Instructions: administer into each nostril cetirizine 10 mg tablet 10 mg PO DAILY betamethasone dipropionate 0.05 % cream 1 appl topical DAILY PRN (Reason: skin irritation) 30 Days Qty: 45 0RF fluvoxamine 50 mg tablet 50 mg PO BID omeprazole 40 mg capsule,delayed release(DR/EC) 40 mg PO DAILY PRN topiramate 200 mg tablet 200 mg PO BID
--- NOTE | 2022-04-05 00:46 | PC.NURSE ---
pt ambulatory around ER without permission from staff - had to be escorted back to stretcher by security. pt not yet medically cleared for ambulation, etc. waiting on results of CT scans .
--- NOTE | 2022-04-05 01:11 | PC.NURSE ---
pt getting up from stretcher, being rude/aggressive with staff stating she wants to leave. MD aware. pt to be discharged home. CT scans neg.
--- NOTE | 2022-04-05 01:11 | PC.NURSE ---
pt continue to leave bed without asking for help. pt redirected multiple times pt continue to be verbally aggressive after being told to ask for up. Pt was running around emergency room eariler during the shift. Security called and redirected to stay in bed and ask for help. LISSY Sterling and Dr. Yemi garcia.
--- NOTE | 2022-04-05 01:13 | PC.NURSE ---
pt upset, she saw her report on [facility] and is waiting for her papers. dr cheng stated to the pt that she is being discharaged and to sit in her bed and the papers will be brought over to her. pt is more cooperative and has stopped shouting out at the staff for discharge.
== END 2022-04-05 01:19 | disposition home or self-care (01) ==
PROVIDERS: Emergency Provider Emergency Medicine; PCP Nurse Practitioner Family
DX: F10.120 Alcohol abuse with intoxication, uncomplicated (principal); Y90.9 Presence of alcohol in blood, level not specified; M54.2 Cervicalgia; Z91.81 History of falling; F17.210 Nicotine dependence, cigarettes, uncomplicated
CPT/HCPCS: 70450; 72125; 99283; 99284

== ENCOUNTER 2022-04-18 13:05 | Outpatient (REF) | payer BC, MEDICARE, MEDICAID, SELFPAY ==
[2022-04-18 13:54] LABS: MANUAL DIFF FLAG NO
[2022-04-18 14:03] LABS: Basophils Absolute Auto 0.1 X10*3/uL (0.0-0.2); Basophils Percent Auto 1.1 % (0-2); Eosinophils Absolute Auto 0.6 X10*3/uL (0.0-0.4); Eosinophils Percent Auto 9.5 % (0-4); Hematocrit 45.3 % (37.0-47.0); Hemoglobin 15.1 g/dl (12.0-16.0); Imm Gran Abs Auto 0.01 X10*3/uL (0.00-0.03); Imm Gran Pct Auto 0.2 % (0.0-0.4); Lymphocytes Percent Auto 29.5 % (20-40); Mean Corpuscular HGB Conc 33.3 g/dl (31.0-35.0); Mean Corpuscular Hemoglobin 29.5 pg (27.0-33.0); Mean Corpuscular Volume 88.6 fL (80.0-98.0); Mean Platelet Volume 9.8 fL (9.4-12.3); Monocytes Absolute Auto 0.5 X10*3/uL (0.1-1.2); Monocytes Percent Auto 7.3 % (2-11); Neutrophils Absolute Auto 3.5 x10*3/uL (2.0-8.3); Neutrophils Percent Auto 52.4 % (45-73); Platelet Count 319 X10*3/uL (160-400); Red Blood Count 5.11 X10*6/uL (4.20-5.50); Red Cell Distribution Width 12.9 % (11.0-16.0); White Blood Count 6.6 X10*3/uL (4.8-10.8)
[2022-04-18 14:29] LABS: Alanine Aminotransferase 33 U/L (0-31); Albumin Level 4.5 g/dL (3.5-5.0); Alkaline Phosphatase 56 U/L (39-117); Anion Gap 14 (12-20); Aspartate Amino Transferase 19 U/L (5-31); Bilirubin Total 0.7 mg/dL (0.0-1.0); Blood Urea Nitrogen 11 mg/dL (9-16); C Reactive Protein 0.35 mg/dL (< or = 0.50); Calcium 9.4 mg/dL (8.4-10.2); Carbon Dioxide 20 mmol/L (22-29); Chloride 111 mmol/L (96-108); Estimated Glomerular Filt Rate > 60; Glucose Random 99 mg/dL (60-115); Potassium 4.2 mmol/L (3.3-5.1); Sodium 141 mmol/L (135-145); Total Protein 7.5 g/dL (6.5-8.0)
[2022-04-18 14:38] LABS: Rheumatoid Factor < 15.0 IU/mL (<15.0)
[2022-04-18 14:40] LABS: Erythrocyte Sedimentation Rate 7 MM/HR (0-20)
[2022-04-21 14:06] LABS: Lyme Abs Screen <0.90 index
[2022-04-21 16:33] LABS: Cyclic Citrullinated Peptide <16 UNITS
[2022-04-23 14:02] LABS: Antibody to SS-A Antigen <1.0 NEG AI (<1.0 NEG); Antibody to SS-B Antigen <1.0 NEG AI (<1.0 NEG)
[2022-04-27 11:55] LABS: A. Phagocytophilum Ab IgG <1:64 (<1:64); A. Phagocytophilum Ab IgM <1:20 (<1:20); E. Chaffeensis Ab IgG <1:64 (<1:64); E. Chaffeensis Ab IgM <1:20 (<1:20)
[2022-04-27 12:47] LABS: Anti Nuclear Antibody Screen NEGATIVE (NEGATIVE)
== END 2022-04-18 13:06 | disposition home or self-care (01) ==
LOC: HO.HMGCLDS 13:05
PROVIDERS: PCP Nurse Practitioner Family; Visit Provider Nurse Practitioner Family
DX: R52 Pain, unspecified (principal)
CPT/HCPCS: 36415; 80053; 85025; 85652; 86038; 86039; 86140; 86200; 86235; 86431; 86617; 86618; 86666

== ENCOUNTER 2022-12-16 11:15 | Outpatient (REF) | payer BC, MEDICARE, MEDICAID, SELFPAY ==
[2022-12-16 13:01] LABS: Hematocrit 45.5 % (37.0-47.0); Hemoglobin 15.1 g/dl (12.0-16.0); Mean Corpuscular HGB Conc 33.2 g/dl (31.0-35.0); Mean Corpuscular Hemoglobin 29.6 pg (27.0-33.0); Mean Corpuscular Volume 89.2 fL (80.0-98.0); Mean Platelet Volume 9.7 fL (9.4-12.3); Platelet Count 341 X10*3/uL (160-400); Red Cell Distribution Width 12.3 % (11.0-16.0); White Blood Count 8.2 X10*3/uL (4.8-10.8)
[2022-12-16 13:50] LABS: Anion Gap 13 (12-20); Blood Urea Nitrogen 11 mg/dL (9-16); Calcium 9.7 mg/dL (8.4-10.2); Carbon Dioxide 21 mmol/L (22-29); Chloride 109 mmol/L (96-108); Estimated Glomerular Filt Rate > 60; Glucose Random 105 mg/dL (60-115); Potassium 4.3 mmol/L (3.3-5.1); Sodium 139 mmol/L (135-145)
[2022-12-16 13:52] LABS: TSH reflex Free T4 1.27 uIU/mL (0.32-4.0)
== END 2022-12-16 11:16 | disposition home or self-care (01) ==
LOC: HO.LAB 11:15
PROVIDERS: PCP Nurse Practitioner Family; Referring Provider Nurse Practitioner Family; Visit Provider Internal Medicine Cardiovascular Disease
DX: R00.0 Tachycardia, unspecified (principal)
CPT/HCPCS: 36415; 80048; 84443; 85027; 93005

== ENCOUNTER → 2022-12-29 09:31 | Outpatient (REF) | payer BC, MEDICARE, MEDICAID, SELFPAY ==
--- NOTE | 2022-12-29 09:35 | HM_ITS ---
Conclusion: 1. Patient was monitored for total period of 7 days 2. Baseline was normal sinus rhythm with average heart of 89 beats per minute 3. No significant pauses or bradycardia noted 4. Very rare ectopy noted next 5. Patient reported 1 event that correlated with sinus tachycardia and no arrhythmias MTDD
--- NOTE | 2022-12-29 09:35 | CA_ITS ---
Acquisition Time: 2022-12-29 10:15:16 Total Exercise Time: 00:05:30 Test Indications: CP Medications: SEE H Protocol: REKHA Max HR: 164 BPM 90% of Pred: 182 BPM Max BP: 132/082 mmHG Max Work Load: 7.0 METS Exercise stress test with exercise 5 min 30 sec of Rekha protocol, achjieving 89% MPHR, with request to stop due to fatigue and feeling lightheaded, no sob or chest discomfort, without arrythmia, with normotensive and normal chronotropic response to exercise, without EKG changes meeting criteria for ischemia. Once in recovery her lightheadedness resolved. Test reviewed with Dr Rivera Referred By: Felix Rivera Overread By: MARCIA CHRISTIAN
== END ==
LOC: HO.CARD 09:31
PROVIDERS: PCP Nurse Practitioner Family; Visit Provider Internal Medicine Cardiovascular Disease
DX: R00.0 Tachycardia, unspecified (principal)
CPT/HCPCS: 93017; 93242

== ENCOUNTER 2023-01-19 11:15 | Outpatient (REF) | payer BC, MEDICARE, MEDICAID, SELFPAY ==
[2023-01-19 11:32] LABS: MANUAL DIFF FLAG NO
[2023-01-19 12:13] LABS: Basophils Percent Auto 1.1 % (0-2); Eosinophils Absolute Auto 0.1 X10*3/uL (0.0-0.4); Eosinophils Percent Auto 2.5 % (0-4); Hematocrit 42.6 % (37.0-47.0); Hemoglobin 14.3 g/dl (12.0-16.0); Imm Gran Abs Auto 0.01 X10*3/uL (0.00-0.03); Imm Gran Pct Auto 0.3 % (0.0-0.4); Lymphocytes Absolute Auto 1.5 X10*3/uL (1.2-4.9); Lymphocytes Percent Auto 42.1 % (20-40); Mean Corpuscular HGB Conc 33.6 g/dl (31.0-35.0); Mean Corpuscular Hemoglobin 29.5 pg (27.0-33.0); Mean Platelet Volume 9.7 fL (9.4-12.3); Monocytes Absolute Auto 0.3 X10*3/uL (0.1-1.2); Monocytes Percent Auto 7.1 % (2-11); Neutrophils Absolute Auto 1.7 x10*3/uL (2.0-8.3); Neutrophils Percent Auto 46.9 % (45-73); Platelet Count 298 X10*3/uL (160-400); Red Blood Count 4.84 X10*6/uL (4.20-5.50); Red Cell Distribution Width 12.4 % (11.0-16.0); White Blood Count 3.7 X10*3/uL (4.8-10.8)
[2023-01-19 12:42] LABS: Appearance Urine Clear; Color Urine Yellow; Glucose Urine UA Negative (Negative); Leukocyte Esterase Urine Negative (Negative); Nitrite Urine Negative (Negative); PH 6.5 (5.0-9.0); Specific Gravity - Urine <= 1.005 (1.005-1.025); UMIC TRIGGER UACC YES; Urine Blood Trace (Negative); Urine Ketones Negative (Negative); Urine Protein Negative (Neg-Trace)
[2023-01-19 12:51] LABS: Bacteria Urine None Seen (None Seen); Hyaline Casts Urine 0-2 /LPF (0-2); RBC Urine 0-2 /HPF (0-2); Squamous Epithelial Cell Urine 0-2 /HPF (0-2); WBC Urine 0-5 /HPF (0-5)
[2023-01-19 12:52] LABS: Alanine Aminotransferase 18 U/L (0-31); Albumin Level 4.3 g/dL (3.5-5.0); Alkaline Phosphatase 44 U/L (39-117); Anion Gap 11 (12-20); Aspartate Amino Transferase 13 U/L (5-31); Bilirubin Total 0.7 mg/dL (0.0-1.0); Blood Urea Nitrogen 11 mg/dL (9-16); Calcium 9.3 mg/dL (8.4-10.2); Carbon Dioxide 21 mmol/L (22-29); Chloride 111 mmol/L (96-108); Cholesterol 113 mg/dL; Estimated Glomerular Filt Rate > 60; Glucose Fasting 101 mg/dL (60-99); HDL Cholesterol 42 mg/dL; LDL Cholesterol Calculated 65 mg/dl; Potassium 4.1 mmol/L (3.3-5.1); Sodium 139 mmol/L (135-145); Triglycerides 30 mg/dL
[2023-01-19 13:10] LABS: TSH reflex Free T4 0.92 uIU/mL (0.32-4.0)
== END 2023-01-19 11:16 | disposition home or self-care (01) ==
LOC: HO.LAB 11:15
PROVIDERS: PCP Nurse Practitioner Family; Visit Provider Nurse Practitioner Family
DX: Z00.00 Encounter for general adult medical examination without abnormal findings (principal); E78.5 Hyperlipidemia, unspecified; R53.83 Other fatigue
CPT/HCPCS: 36415; 80053; 80061; 81001; 84443; 85025

== ENCOUNTER 2023-05-28 15:58 | Outpatient (AMB) | payer BC, MEDICARE, MEDICAID, SELFPAY ==
--- NOTE | 2023-05-28 16:10 | MHC.OFFWIV ---
Intake Vital Signs 05/28/23 16:11 Weight 174 lb BP 118/70 Blood Pressure Location Rt brachial Position Sitting Pulse 93 Pulse Source Pulse Oximeter Temp 97.6 F Temp Source Temporal Artery Scan Pulse Oximetry (%) 99 Oxygen Delivery Method Room Air Intake Visit Reasons: EST/cold symptoms. Intake Note: Patient here for cold/cough that has been present for about 4 days. Her son was recently sick. Patient Tobacco Use Status: Current someday Tobacco user Allergies Sulfa (Sulfonamide Antibiotics) Allergy (Unknown, Verified 05/28/23 16:14) Itching sulfamethoxazole [From Bactrim] Allergy (Unknown, Verified 05/28/23 16:14) itchy trimethoprim [From Bactrim] Allergy (Unknown, Verified 05/28/23 16:14) itchy DUST Allergy (Unknown, Uncoded 05/28/23 16:14) RUNNY NOSE SEASONAL ALLERGIES Allergy (Unknown, Uncoded 05/28/23 16:14) UNKNOWN Do you need a note to return to daycare/school/sports/work: No HPI HPI Comments History of Present Illness Details 37-year-old female history of asthma the presents for cough. Patient states that her son was recently sick diagnosed with a back term bronchitis. He was treated with azithromycin and prednisone. She reports sugars symptoms being on the 24th. She had some leftover Augmentin which she has been taking at home twice a day. She endorses continued cough and occasional wheeze denies chest pain. Should reports that typically when the for happened so asthma flares up early bad she needs a dose of prednisone to help. Denies fevers chills [facility] Medical History (Updated 01/19/23 @ 12:38 by SHARON Delgado) PTSD (post-traumatic stress disorder) Seizure disorder Bipolar 1 disorder Tachycardia OCD (obsessive compulsive disorder) Leukopenia Suicidal ideations History of depression Hx gestational diabetes PVC (premature ventricular contraction) Vertigo Migraine aura without headache (migraine equivalents) History of irritable bowel syndrome Family History Father No problems noted. Mother HTN (hypertension) Diabetes High cholesterol Rheumatoid arthritis Maternal Grandfather No problems noted. Paternal Grandfather Substance use disorder Social History Household Members: Children [facility] Alcohol intake: current Alcohol intake frequency: a few times a month Alcohol type: hard liquor Patient Tobacco Use Status: Current someday Tobacco user Cigarettes Per Day: 5 e-Cigarette/Vaping Use: Never Used Second Hand Smoke Exposure: Yes Current occupational status: unemployed Cognitive needs: No Hearing needs: No Vision needs: No Review of Systems ENT Reports nasal congestion and Reports sinus pressure Resp Reports cough and Reports wheezing Aller/Immun Reports wheezing Physical Exam Vital Signs: Last Vital Signs Temp 97.6 F 05/28/23 16:11 Pulse 93 05/28/23 16:11 BP 118/70 05/28/23 16:11 Pulse Ox 99 05/28/23 16:11 Oxygen Delivery Method Room Air 05/28/23 16:11 Const General: cooperative, no acute distress and alert Orientation/consciousness: patient oriented x3 Limitations: no limitations HEENT Head: Yes normal to inspection Ears: hearing grossly normal bilaterally and external ears normal General nose exam: Normal external nose present Eyes General: appearance normal, both eyes and all related structures Neck Neck: Yes normal visual inspection Chest Chest palpation & inspection: normal inspection of the chest Resp Effort & Inspection: normal respiratory effort, able to speak in complete sentences and no audible wheezes Auscultation: clear to auscultation bilaterally Cardio Rate: regular rate Rhythm: regular rhythm GI Inspection: Yes normal to inspection Palpation (GI): Soft to palpation and nontender Skin General skin exam: no rashes or lesions noted Neuro General: patient oriented x3 Psych Appearance: grossly normal Mental Status: mental status grossly normal Speech and movement: Normal speech and movement present Affect: normal affect Attitude: cooperative Thought process: Normal thought process present Thought content: Normal thought content present Assessment & Plan Assessment & Plan (1) Bronchitis: Code(s): J40 - Bronchitis, not specified as acute or chronic Plan: VSs aspirate exam patient's insulin oriented no acute distress exam is notable for some coarse breath sounds in the bases bilaterally exam otherwise unremarkable note above. Patient signs symptoms consistent with bronchitis. With prescription for presenting to in refill patient's inhaler as well as medication for cough suppressant. Discharge instructions, follow up and treatment are discussed with patient in my usual fashion. Alternatives in treatment are also discussed. The patient will return for worsening symptoms or as needed. Advised that any labs/imaging ordered will be followed up on and contact made if further treatment needed. Counseled that patient's condition may require further evaluation and/or treatment. Symptoms of concern for worsening disorder discussed in detail in my customary manner. Patient does verbalize understanding of the plan, there are no apparent barriers to communication. The patient is given the opportunity to ask questions and have them answered to his/her satisfaction Medications: New prednisone 40 mg (2 x 20 mg) PO DAILY 5 days 10 tabs 0RF dextromethorphan HBr 30 mg (2 x 15 mg) PO Q8H 3 days PRN 18 caps 0RF cough Refilled albuterol sulfate 90 mcg/actuation 2 puffs inhalation Q4H PRN 8.5 ea 0RF for muscle spasm Coding Level of Care Code Est Pt Level 3 (96115) Diagnoses Bronchitis J40
[2023-05-28 16:11] VITALS: BP 118/70; PULSE 93; TEMP 36.4; O2SAT 99
== END 2023-05-28 16:33 | disposition home or self-care (01) ==
PROVIDERS: PCP Nurse Practitioner Family; Visit Provider Physician Assistant
DX: J40 Bronchitis, not specified as acute or chronic (principal)
CPT/HCPCS: 99213

== ENCOUNTER 2023-07-28 09:12 | Outpatient (AMB) | payer BC, MEDICARE, MEDICAID, SELFPAY ==
--- NOTE | 2023-07-28 09:15 | A.OFFPC_ITS ---
Vital Signs 07/28/23 09:17 Height 5 ft 8 in Weight 162 lb BMI 24.6 BP 108/74 Blood Pressure Location Lt brachial Position Sitting Pulse 100 Pulse Source Pulse Oximeter Pulse Oximetry (%) 100 Oxygen Delivery Method Room Air Intake Visit Reasons: Annual PE Intake Note: Patient here for physical exam and would like to talk about left shoulder tension which has been present for months. Last Pap: unknown Last eye exam: 03/2023- [facility]. Allergies Sulfa (Sulfonamide Antibiotics) Allergy (Unknown, Verified 07/28/23 09:19) Itching sulfamethoxazole [From Bactrim] Allergy (Unknown, Verified 07/28/23 09:19) itchy trimethoprim [From Bactrim] Allergy (Unknown, Verified 07/28/23 09:19) itchy DUST Allergy (Unknown, Uncoded 07/28/23 09:19) RUNNY NOSE SEASONAL ALLERGIES Allergy (Unknown, Uncoded 07/28/23 09:19) UNKNOWN Medication List - Last Reconciled 07/28/23 by SHARON Delgado albuterol sulfate 90 mcg/actuation 2 puffs inhalation Q4H PRN betamethasone dipropionate 0.05% 1 appl topical DAILY PRN 30 days cetirizine 10 mg PO DAILY clonazepam 2 mg PO BID lisdexamfetamine (Vyvanse) 50 mg PO QAM mometasone 50 mcg/actuation 2 sprays intranasal DAILY topiramate 200 mg PO BID topiramate 200 mg PO BID Tobacco use date assessed: 01/20/23 Dental Screening Dental Screen Date: 07/28/23 Did you have a dental visit in the last 12 months?: No Did you have a dental problem in the last 6 months where you did not have access to dental care?: No Was dental information given to patient?: Patient has dentist HPI Annual PE HPI Details Pt is here for a PE. Will order labs. 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 [facility] Medical History PTSD (post-traumatic stress disorder) Seizure disorder Bipolar 1 disorder Tachycardia OCD (obsessive compulsive disorder) Leukopenia Suicidal ideations History of depression Hx gestational diabetes PVC (premature ventricular contraction) Vertigo Migraine aura without headache (migraine equivalents) History of irritable bowel syndrome Family History Father No problems noted. Mother HTN (hypertension) Diabetes High cholesterol Rheumatoid arthritis Maternal Grandfather No problems noted. Paternal Grandfather Substance use disorder Household Members: Children [facility]: [facility] Alcohol intake: current Alcohol intake frequency: a few times a month Alcohol type: hard liquor Patient Tobacco Use Status: Current someday Tobacco user Cigarettes Per Day: 5 e-Cigarette/Vaping Use: Never Used Second Hand Smoke Exposure: Yes Current occupational status: unemployed Cognitive needs: No Hearing needs: No Vision needs: No Questionnaire PHQ-9 Over the last 2 weeks, how often have you been bothered by any of the following problems? 53852 - PHQ-9 Billing: Patient declined-do not bill Source: Developed by Drs. Nikko Cleary, Irma Pryor, Chris Garcia and colleagues, with an educational amanda from [employer]. Thrive Questionnaire Date Thrive assessed: 10/23/22 AUDIT C Alcohol Use Questionnaire (AUDIT-C) 1. How often do you have a drink containing alcohol?: Monthly or less 2. How many drinks containing alcohol do you have on a typical day when you are drinking?: 1 or 2 Total Score: 1 Score Reviewed/Action Taken: No OPAL-7 AMB Questionnaire OPAL-7 Date OPAL - 7 assessed: 10/23/22 Source: Developed by Drs. Nikko Cleary, Irma Pryor, Chris Garcia and colleagues, with an educational amanda from [employer]. Review of Systems Const Denies chills and Denies fever(s) Eyes Denies blurry vision ENT Denies vertigo, Denies dizziness and Denies sore throat Card Denies chest pain at rest, Denies chest pain with activity, Denies diaphoresis, Denies dyspnea and Denies dyspnea on exertion Resp Denies cough, Denies dyspnea, Denies dyspnea on exertion and Denies wheezing GI Denies abdominal pain, Denies melena, Denies hematochezia, Denies constipation, Denies diarrhea and Denies loose stools Denies hematuria Musc Denies numbness and Denies tingling Skin/Breast Denies lesions Neuro Denies vertigo, Denies dizziness, Denies numbness and Denies tingling Psych Denies anxiety, Denies depression, Denies homicidal ideation, Denies suicidal ideation and Denies other (substance abuse) Aller/Immun Denies wheezing Physical exam (Primary Care) Vital Signs: Last Vital Signs Pulse 100 07/28/23 09:17 BP 108/74 07/28/23 09:17 Pulse Ox 100 07/28/23 09:17 Oxygen Delivery Method Room Air 07/28/23 09:17 BMI result Body Mass Index 24.6 Tobacco/Smoking Status: Tobacco use Status Tobacco use date assessed 01/20/23 07/28/23 09:17 Patient Tobacco Use Status Current someday Tobacco 07/28/23 09:17 e-Cigarette/Vaping Use Never Used 07/28/23 09:17 Thrive Assessment: Date of Thrive Assessment Date Thrive assessed 10/23/22 07/28/23 09:17 Const General: cooperative Nutritional Appearance: well nourished Orientation/consciousness: patient oriented x3 HENMT Head: Yes normal to inspection, Yes normocephalic and Yes atraumatic Ears: TM's normal bilaterally Eyes General: appearance normal, both eyes and all related structures Alignment and Position: alignment normal and position normal Neck Neck: Yes normal visual inspection and Yes no lymphadenopathy Thyroid: Thyroid normal Resp Effort & Inspection: normal respiratory effort Auscultation: clear to auscultation bilaterally Cardio Rate: regular rate Rhythm: regular rhythm Heart sounds: S1 normal heart sound present, S2 normal heart sound present and no murmurs GI Palpation (GI): Soft to palpation and nontender Auscultation: normal bowel sounds Skin Rashes: no rashes Neuro General: patient oriented x3, moves all extremities, no focal motor deficits and deep tendon reflexes 2+ bilaterally Romberg Test: Negative Psych Appearance: grossly normal Mental Status: mental status grossly normal Speech and movement: Normal speech and movement present Affect: normal affect Attitude: cooperative Thought process: Normal thought process present Thought content: Normal thought content present Insight: Good insight present (Psych) Judgement: Good judgement present (Psych) Assessment and Plan Assessment & Plan (1) Physical exam: Code(s): Z00.00 - Encounter for general adult medical examination without abnormal findings Plan: Labs ordered (2) Screening for cervical cancer: Code(s): Z12.4 - Encounter for screening for malignant neoplasm of cervix Plan: Referred to fruit harvest worker Plan The patient agreed to the use of a medical office assistant instructor for this encounter. Scribed for SHARON Pavon by Briseyda Galeana medical office assistant instructor, on 07/28/2023 at 09:30 EST. Orders: Orders Comprehensive [place]. 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
[2023-07-28 09:17] VITALS: BP 108/74; PULSE 100; O2SAT 100; BMI 24.6
== END 2023-07-28 11:41 | disposition home or self-care (01) ==
LOC: HO.HMGC 09:12
PROVIDERS: PCP Nurse Practitioner Family; Visit Provider Nurse Practitioner Family
DX: Z00.00 Encounter for general adult medical examination without abnormal findings (principal); Z12.4 Encounter for screening for malignant neoplasm of cervix
CPT/HCPCS: 99395

== ENCOUNTER 2023-07-28 09:48 | Outpatient (REF) | payer BC, MEDICARE, MEDICAID, SELFPAY ==
[2023-07-28 13:29] LABS: MANUAL DIFF FLAG NO
[2023-07-28 13:31] LABS: Basophils Absolute Auto 0.1 X10*3/uL (0.0-0.2); Basophils Percent Auto 1.3 % (0-2); Eosinophils Absolute Auto 0.2 X10*3/uL (0.0-0.4); Eosinophils Percent Auto 3.8 % (0-4); Hematocrit 44.5 % (37.0-47.0); Hemoglobin 15.3 g/dl (12.0-16.0); Imm Gran Abs Auto 0.02 X10*3/uL (0.00-0.03); Imm Gran Pct Auto 0.4 % (0.0-0.4); Lymphocytes Absolute Auto 1.4 X10*3/uL (1.2-4.9); Lymphocytes Percent Auto 28.8 % (20-40); Mean Corpuscular HGB Conc 34.4 g/dl (31.0-35.0); Mean Corpuscular Hemoglobin 31.1 pg (27.0-33.0); Mean Corpuscular Volume 90.4 fL (80.0-98.0); Monocytes Absolute Auto 0.5 X10*3/uL (0.1-1.2); Monocytes Percent Auto 9.8 % (2-11); Neutrophils Absolute Auto 2.6 x10*3/uL (2.0-8.3); Neutrophils Percent Auto 55.9 % (45-73); Platelet Count 360 X10*3/uL (160-400); Red Blood Count 4.92 X10*6/uL (4.20-5.50); Red Cell Distribution Width 12.7 % (11.0-16.0); White Blood Count 4.7 X10*3/uL (4.8-10.8)
[2023-07-28 13:43] LABS: Appearance Urine Clear; Color Urine Yellow; Glucose Urine UA Negative (Negative); Leukocyte Esterase Urine Negative (Negative); Nitrite Urine Negative (Negative); PH 5.5 (5.0-9.0); Specific Gravity - Urine 1.015 (1.005-1.025); UMIC TRIGGER UACC YES; Urine Blood Negative (Negative); Urine Ketones Negative (Negative); Urine Protein 30 (1+) mg/dL (Neg-Trace)
[2023-07-28 13:56] LABS: Alanine Aminotransferase 25 U/L (0-31); Albumin Level 4.3 g/dL (3.5-5.0); Alkaline Phosphatase 43 U/L (39-117); Anion Gap 12 (12-20); Aspartate Amino Transferase 15 U/L (5-31); Bilirubin Total 0.6 mg/dL (0.0-1.0); Blood Urea Nitrogen 9 mg/dL (9-16); Calcium 9.3 mg/dL (8.4-10.2); Carbon Dioxide 21 mmol/L (22-29); Chloride 109 mmol/L (96-108); Cholesterol 128 mg/dL (<200); Estimated Glomerular Filt Rate > 60; Glucose Fasting 100 mg/dL (60-99); HDL Cholesterol 61 mg/dL (>40); LDL Cholesterol Calculated 56 mg/dL (<100); Potassium 3.6 mmol/L (3.3-5.1); Sodium 138 mmol/L (135-145); Total Protein 7.3 g/dL (6.5-8.0); Triglycerides 59 mg/dL (<150)
[2023-07-28 13:57] LABS: Bacteria Urine None Seen (None Seen); Hyaline Casts Urine >20 /LPF (0-2); RBC Urine 0-2 /HPF (0-2); WBC Urine 0-5 /HPF (0-5)
[2023-07-28 14:05] LABS: TSH reflex Free T4 1.72 uIU/mL (0.32-4.0)
== END 2023-07-28 09:49 | disposition home or self-care (01) ==
LOC: HO.HMGCLDS 09:48
PROVIDERS: PCP Nurse Practitioner Family; Visit Provider Nurse Practitioner Family
DX: Z00.00 Encounter for general adult medical examination without abnormal findings (principal); D72.819 Decreased white blood cell count, unspecified; F17.200 Nicotine dependence, unspecified, uncomplicated
CPT/HCPCS: 36415; 80053; 80061; 81001; 84443; 85025

== ENCOUNTER 2023-11-29 16:47 | Emergency (ER) | payer BC, MEDICARE, MEDICAID, SELFPAY ==
--- NOTE | ~2023-11-29 | XR_ITS ---
EXAMINATION: XR CHEST CLINICAL INFORMATION: Shortness of breath. Cough. COMPARISON: Multiple priors with last chest x-ray of 10/07/2020 TECHNIQUE: 2 views of the chest were obtained. FINDINGS: The lungs are mildly hyperinflated. No focal consolidation, changes of congestion, pleural effusions or pneumothorax are seen. Cardiomediastinal silhouette is stable and normal. Regional skeleton is intact. Visualized upper abdomen is unremarkable. XR/XR chest 2V IMPRESSION: No radiographic evidence of pneumonia or pulmonary edema. No acute pulmonary process.
[2023-11-29 17:06] VITALS: BP 142/87; PULSE 93; RESP 16; TEMP 37; O2SAT 99; BMI 23.3
--- NOTE | 2023-11-29 17:09 | ED_ITS ---
HPI - URI/Sore Throat General Chief Complaint: Upper Respiratory Symptoms Stated Complaint: bronchitis? has been sick for about a week Time Seen by Provider: 11/29/23 18:26 Source: patient Mode of arrival: ambulatory Limitations: no limitations History of Present Illness HPI Narrative: Patient is a 38-year-old female who presents emergency department for evaluation of one week of URI symptoms - cough, congestion, H/A SOB, progressively worsening, son has been ill recently as well Denies fevers, chills, dizziness, neck pain, neck stiffness, chest pain, sore throat, nausea, vomiting, abdominal pain, numbness or tingling of the extremities, genitourinary symptoms. Related Data Home Medications Medication Instructions Recorded Confirmed clonazepam 1 mg tablet 2 mg PO BID Anxiety 06/27/21 07/28/23 cetirizine 10 mg tablet 10 mg PO DAILY 12/10/21 07/28/23 lisdexamfetamine 30 mg capsule 50 mg PO QAM 07/28/23 07/28/23 (Vyvanse) topiramate 100 mg tablet 200 mg PO BID 07/28/23 07/28/23 Previous Rx's Medication Instructions Recorded betamethasone dipropionate 0.05 % 1 appl topical DAILY PRN skin 08/14/22 topical cream irritation 30 days #45 grams albuterol sulfate 90 mcg/actuation 2 puff inhalation Q4H PRN for 05/28/23 aerosol inhaler muscle spasm #8.5 ea mometasone 50 mcg/actuation nasal 2 spray intranasal DAILY #51 grams 11/06/23 spray azithromycin 250 mg tablet See Rx Instructions PO .COMPLEX #6 11/29/23 tabs prednisone 20 mg tablet 40 mg (2 x 20 mg) PO DAILY 5 days 11/29/23 #10 tabs Allergies Allergy/AdvReac Type Severity Reaction Status Date / Time Sulfa (Sulfonamide Allergy Unknown Itching Verified 11/29/23 17:05 Antibiotics) sulfamethoxazole Allergy Unknown itchy Verified 11/29/23 17:05 [From Bactrim] trimethoprim [From Bactrim] Allergy Unknown itchy Verified 11/29/23 17:05 DUST Allergy Unknown RUNNY NOSE Uncoded 07/28/23 09:19 SEASONAL ALLERGIES Allergy Unknown UNKNOWN Uncoded 07/28/23 09:19 Review of Systems Review of Systems: Yes all other systems are reviewed and are negative PMFSH Past Medical History Attestation statement: The following information was validated with the patient. Source: old records reviewed Medical History PTSD (post-traumatic stress disorder) Seizure disorder Bipolar 1 disorder Tachycardia OCD (obsessive compulsive disorder) Leukopenia Suicidal ideations History of depression Hx gestational diabetes PVC (premature ventricular contraction) Vertigo Migraine aura without headache (migraine equivalents) History of irritable bowel syndrome Family History Family History Father No problems noted. Mother HTN (hypertension) Diabetes High cholesterol Rheumatoid arthritis Maternal Grandfather No problems noted. Paternal Grandfather Substance use disorder Social History Social History Household Members: Children Housing: [facility] Alcohol intake: current Alcohol intake frequency: a few times a month Alcohol type: hard liquor Patient Tobacco Use Status: Current someday Tobacco user Cigarettes Per Day: 5 e-Cigarette/Vaping Use: Never Used Second Hand Smoke Exposure: Yes Advance Directives: No Advance Directives Information Provided: No Current occupational status: unemployed Cognitive needs: No Hearing needs: No Vision needs: No Physical Exam Vital Signs: Vital Signs: Last Vital Signs Temp 98.6 F 11/29/23 17:06 Pulse 93 11/29/23 17:06 Resp 16 11/29/23 17:06 BP 142/87 H 11/29/23 17:06 Pulse Ox 99 11/29/23 17:06 O2 Del Method Room Air 11/29/23 17:06 BMI result Body Mass Index 23.3 Appearance: Alert.?Oriented to person, place and time. No acute distress.?Normal affect. Eyes: Pupils equal, round and reactive to light.? ENT: TM normal bilaterally. Pharynx normal.?? Neck: Normal inspection.? Neck supple.??No cervical adenopathy CVS: Heart sounds normal. Normal heart rate and rhythm.? Pulses normal.?? Respiratory: No respiratory distress.? Lung sounds mild imspiratory wheezing bilaterally bilaterally?? Abdomen: Soft and non-tender. Normoactive bowel sounds. Skin: Skin warm and dry.? Normal skin color.? ? Extremities: No lower extremity edema.? Neuro: Moves all extremities spontaneously. Sensation intact bilaterally. No motor deficits. Ambulates with normal steady gait. Medical Decision Making Medical Decision Making [facility] Narrative: Patient is a 38 y.o. female with past medical history of asthma, presenting for evaluation of upper respiratory symptoms. COVID-19/ influenza/ RSV negative. CXR w/o evidence of pneumonia or pleural effusion, consistent with mild asthma exacerbation and bronchitis. At this time history and physical exam not consis tent with ACS/PE/pneumonia. Well-appearing, nontoxic, afebrile, no tachycardia or tachypnea/hypoxia. Speaking clear full sentences, ambulatory with steady gait. Discussed course of prednisone and azithromycin, continued use of albuterol inhaler as needed, in addition to conservative treatment including rest, hydration, Tylenol/ibuprofen as needed for fever and body aches, saline nasal spray, humidifier, [id number] cold medication. Advised to follow-up with primary care provider as needed, discussed reasons to return back to the emergency department. All questions were answered. Patient discharged home in stable condition. Differential Diagnosis Differential Diagnoses: The differential diagnosis associated with the p resentation includes ( See narrative above) Admission/Observation Consideration of admission/observation: Escalation of care including admission/observation considered ( see narrative above) Lab Data [facility] Lab Attestation statement: I reviewed the patient's lab results. ( see narrative above) Labs: Lab Results 11/29/23 Range/Units 17:30 Influenza Type A (PCR) NEGATIVE (Negative) Influenza Type B (PCR) NEGATIVE (Negative) RSV RNA Qual (PCR) NEGATIVE (Negative) SARS-CoV-2 RNA (RT-PCR) NEGATIVE (Negative) Independent Interpretation I performed an independent interpretation of an: Plain X-Ray (no pneumonia, effusion) Radiology Impression Discussion of test interpretation with radiology: I have reviewed the radiologist's reading. Radiologist Impression: XR/XR chest 2V IMPRESSION: No radiographic evidence of pneumonia or pulmonary edema. No acute pulmonary process. External Record Review External record reviewed: Outpatient record Prescription Management I considered prescription management with: Pain Medication ( acetaminophen/ibuprofen) and Antibiotic Discharge Plan Discharge Clinical Impression: Bronchitis Patient Disposition: Home, Self-Care Instructions: Acute Bronchitis (ED) Prescriptions: New prednisone 20 mg tablet 40 mg PO DAILY 5 Days Qty: 10 0RF azithromycin 250 mg tablet See Rx Instructions .ROUTE .COMPLEX Qty: 6 0RF Rx Instructions: For 250 mg dose pack: take 500 mg today (day 1), then 250 mg for 4 days (days 2-5) No Action betamethasone dipropionate 0.05 % cream 1 appl topical DAILY PRN (Reason: skin irritation) 30 Days Qty: 45 0RF mometasone 50 mcg/actuation spray,non-aerosol 2 spray intranasal DAILY Qty: 51 1RF Rx Instructions: administer into each nostril clonazepam 1 mg tablet 2 mg PO BID cetirizine 10 mg tablet 10 mg PO DAILY Vyvanse 30 mg capsule 50 mg PO QAM topiramate 100 mg tablet 200 mg PO BID albuterol sulfate 90 mcg/actuation HFA aerosol inhaler 2 puff inhalation Q4H PRN (Reason: for muscle spasm) Qty: 8.5 0RF Referrals: Raf Jaquez, HAND RUG BRAIDER-BC [Primary Care Provider] -
[2023-11-29 18:12] LABS: Influenza A PCR NEGATIVE (Negative); Influenza B PCR NEGATIVE (Negative); Resp Syncy Virus RNA Qual PCR NEGATIVE (Negative); SARS COV2 PCR INHOUSE NEGATIVE (Negative)
[2023-11-29 19:13] VITALS: BP 142/87; PULSE 93; RESP 16; TEMP 37; O2SAT 99
== END 2023-11-29 19:15 | disposition home or self-care (01) ==
PROVIDERS: Nurse Practitioner Family; Emergency Provider Emergency Medicine Emergency Medical Services; PCP Nurse Practitioner Family
DX: J40 Bronchitis, not specified as acute or chronic (principal); Z03.818 Encounter for observation for suspected exposure to other biological agents ruled out
CPT/HCPCS: 0241U; 71046; 99282; 99283

== ENCOUNTER 2024-01-27 10:20 | Outpatient (AMB) | payer BC, MEDICARE, MEDICAID, SELFPAY ==
--- NOTE | 2024-01-27 10:24 | MHC.PC.OV ---
Vital Signs 01/27/24 10:26 01/27/24 10:52 Height 5 ft 8 in Weight 142 lb 2 oz BMI 21.6 BP 122/74 Blood Pressure Location Rt brachial Position Sitting Pulse 110 H 95 Pulse Source Pulse Oximeter Pulse Oximetry (%) 98 Oxygen Delivery Method Room Air Intake Visit Reasons: 6 Month follow up Intake Note: pt is here for 6 month follow up, requesting referral for [facility] in [place] Employment Evaluator/Case Manager Required: No Allergies Sulfa (Sulfonamide Antibiotics) Allergy (Unknown, Verified 01/27/24 10:27) Itching sulfamethoxazole [From Bactrim] Allergy (Unknown, Verified 01/27/24 10:27) itchy trimethoprim [From Bactrim] Allergy (Unknown, Verified 01/27/24 10:27) itchy DUST Allergy (Unknown, Uncoded 07/28/23 09:19) RUNNY NOSE SEASONAL ALLERGIES Allergy (Unknown, Uncoded 07/28/23 09:19) UNKNOWN Tobacco use date assessed: 01/27/24 Dental Screening Dental Screen Date: 01/27/24 Did you have a dental visit in the last 12 months?: Yes Did you have a dental problem in the last 6 months where you did not have access to dental care?: No Was dental information given to patient?: Patient has dentist HPI 6 Month follow up HPI Details Anxiety: Pt is doing well. She is in a new relationship and is very happy. Pt sees a therapist and a psychiatrist. Denies any SI and HI. Pt has a strong family hx of rheumatoid arthritis. She reports some pain and redness of her hands/finger joints. Will order XRs and labs. [facility] Medical History (Updated 01/27/24 @ 10:50 by SHARON Delgado) Asthma PTSD (post-traumatic stress disorder) Seizure disorder Bipolar 1 disorder Tachycardia OCD (obsessive compulsive disorder) Leukopenia Suicidal ideations History of depression Hx gestational diabetes PVC (premature ventricular contraction) Vertigo Migraine aura without headache (migraine equivalents) History of irritable bowel syndrome Surgical History No pertinent past surgical history Family History Father No problems noted. Mother HTN (hypertension) Diabetes High cholesterol Rheumatoid arthritis Maternal Grandfather No problems noted. Paternal Grandfather Substance use disorder Social History Household Members: Children Housing: Condominium Alcohol intake: current Alcohol intake frequency: a few times a month Alcohol type: hard liquor Patient Tobacco Use Status: Former Tobacco user Cigarettes Per Day: 5 e-Cigarette/Vaping Use: Never Used Second Hand Smoke Exposure: Yes Current occupational status: unemployed Cognitive needs: No Hearing needs: No Vision needs: No Questionnaire PHQ-9 Over the last 2 weeks, how often have you been bothered by any of the following problems? 1. Little interest or pleasure in doing things: not at all 2. Feeling down, depressed, or hopeless: not at all 3. Trouble falling or staying asleep, or sleeping too much: nearly every day 4. Feeling tired or having little energy: more than half the days 5. Poor appetite or overeating: several days 6. Feeling bad about yourself - or that you are a failure or have let yourself or your family down: more than half the days 7. Trouble concentrating on things, such as reading the newspaper or watching television: more than half the days 8. Moving or speaking so slowly that other people could have noticed. Or the opposite - being so fidgety or restless that you have been moving around a lot more than usual: not at all 9. Thoughts that you would be better off or of hurting yourself in some way: not at all Total score: 10 Depression Screening Interpretation: Positive (has a psychiatrist and a therapist) Depression Screening Follow-up: Existing condition and In treatment Depression Screening Done: Yes 99768 - PHQ-9 Billing: Yes Source: Developed by Drs. Nikko Cleary, Irma Pryor, Chris Garcia and colleagues, with an educational amanda from [employer]. Thrive Questionnaire Date Thrive assessed: 01/27/24 I am a: Patient What is your living situation today?: I have a steady place to live Within the past 12 months, did the food you bought not last and you didn't have the money to get more?: Never true Within the past 12 months, did you worry whether your food would run out before you got money to buy more?: Never true Do you have trouble paying for medicines?: No Do you have trouble getting transportation to medical appointments?: No Do you have trouble paying your heating and electricity bill?: No Do you have trouble taking care of your child, family member or friend?: No Do you have trouble with day-to-day activities such as bathing, preparing meals, shopping, managing finances, etc.?: No Are you currently unemployed and looking for a job?: No Are you interested in more education?: No Please select the resources that you would like help with: None Currently or been in a relationship where the following occur: no concerns reported THRIVE Score: 0 AUDIT C Alcohol Use Questionnaire (AUDIT-C) 1. How often do you have a drink containing alcohol?: Monthly or less 2. How many drinks containing alcohol do you have on a typical day when you are drinking?: 1 or 2 Total Score: 1 Score Reviewed/Action Taken: Yes OPAL-7 AMB Questionnaire OPAL-7 Date OPAL - 7 assessed: 01/27/24 Feeling nervous, anxious, or on edge: 2 = More than half the days Not being able to stop or control worryin = More than half the days Worrying too much about different things: 3 = Nearly every day Trouble relaxin = Nearly every day Being so restless that it is hard to sit still: 2 = More than half the days Becoming easily annoyed or irritable: 1 = Several days Feeling afraid as if something awful might happen: 1 = Several days Total OPAL-7 score (0-4 normal; 5-9 mild; 10-14 moderate; 15-21 severe): 14 Source: Developed by Drs. Nikko Cleary, Irma Pryor, Chris Garcia and colleagues, with an educational amanda from [employer]. OPAL-7 Assessment Billing OPAL-7 Assessment Tool: OPAL-7 Assessment 91806 (has a psychiatrist and therapist) Review of Systems Const Reports as per HPI Physical exam (Primary Care) Vital Signs: Last Vital Signs Pulse 110 H 01/27/24 10:26 BP 122/74 01/27/24 10:26 Pulse Ox 98 01/27/24 10:26 Oxygen Delivery Method Room Air 01/27/24 10:26 BMI result Body Mass Index 21.6 Tobacco/Smoking Status: Tobacco use Status Tobacco use date assessed 01/27/24 01/27/24 10:29 Patient Tobacco Use Status Former Tobacco user 01/27/24 10:29 e-Cigarette/Vaping Use Never Used 01/27/24 10:26 Depression Screening Interpretation: Positive (has a psychiatrist and a therapist) Depression Screening Follow-up: Existing condition and In treatment Thrive Assessment: Date of Thrive Assessment Date Thrive assessed 10/23/22 01/27/24 10:26 Currently or been in a relationship where the following occur: no concerns reported Const General: cooperative Orientation/consciousness: patient oriented x3 Resp Effort & Inspection: normal respiratory effort Auscultation: clear to auscultation bilaterally Cardio Rate: regular rate Rhythm: regular rhythm Heart sounds: S1 normal heart sound present and S2 normal heart sound present Neuro General: patient oriented x3 Extrem Other: hand joints without active swelling. Minimal tenderness to dip and pip joints with finger flexion/hand grasps Psych Appearance: grossly normal Mental Status: mental status grossly normal Speech and movement: Normal speech and movement present Affect: normal affect Attitude: cooperative Thought process: Normal thought process present Thought content: Normal thought content present Insight: Good insight present (Psych) Judgement: Good judgement present (Psych) Assessment and Plan Assessment & Plan (1) Anxiety: Code(s): F41.9 - Anxiety disorder, unspecified Plan: doing well (2) Family history of rheumatoid arthritis: Code(s): Z82.61 - Family history of arthritis (3) Family history of rheumatoid arthritis: Code(s): Z82.61 - Family history of arthritis Plan: labs ordered and hand XRs (4) Hand pain: Code(s): M79.643 - Pain in unspecified hand Plan The patient agreed to the use of a vice president medical affairs for this encounter. Scribed for JENNIFER Pavon by Briseyda Galeana vice president medical affairs, on 01/27/2024 at 10:35 EST. Orders: Orders Complete Blood Count Auto Diff Today F41.9 - Anxiety disorder, unspecified Comprehensive [place]. Panel Fast Today F41.9 - Anxiety disorder, unspecified Cyclic Citrullinated Peptide Today Z82.61 - Family history of arthritis Erythrocyte Sedimentation Rate Today Z82.61 - Family history of arthritis Anti DNA DS Antibody Today Z82.61 - Family history of arthritis XR hand LT 2V Today M79.643 - Pain in unspecified hand, Z82.61 - Family history of arthritis TSH reflex Free T4 Today F41.9 - Anxiety disorder, unspecified UA CC w/rflx Micro + Cult Today F41.9 - Anxiety disorder, unspecified Lipid Panel Today F41.9 - Anxiety disorder, unspecified Rheumatoid Factor Today Z82.61 - Family history of arthritis C Reactive Protein Today Z82.61 - Family history of arthritis Sjogren's Antibodies Today Z82.61 - Family history of arthritis CLEMENT Reflex Titer and Pattern Today Z82.61 - Family history of arthritis DNA Double Stranded-Crithidia Today Z82.61 - Family history of arthritis XR hand RT 2V Today M79.643 - Pain in unspecified hand, Z82.61 - Family history of arthritis Coding Level of Care Code Est Pt Level 3 (69752) Diagnoses Anxiety F41.9 Family history of rheumatoid arthritis Z82.61 Hand pain M79.643 Additional Codes OPAL-7 Assessment Billing - OPAL-7 Assessment Tool: OPAL-7 Assessment 22057 ([id number])
[2024-01-27 10:26] VITALS: BP 122/74; PULSE 110; O2SAT 98; BMI 21.6
[2024-01-27 10:52] VITALS: PULSE 95
== END 2024-01-27 11:40 | disposition home or self-care (01) ==
PROVIDERS: PCP Nurse Practitioner Family; Visit Provider Nurse Practitioner Family
DX: F41.9 Anxiety disorder, unspecified (principal); M79.643 Pain in unspecified hand; Z82.61 Family history of arthritis
CPT/HCPCS: 96127; 99213

== ENCOUNTER 2024-03-15 21:25 | Emergency (ER) | payer BC, MEDICARE, MEDICAID, SELFPAY ==
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
--- NOTE | ~2024-03-15 | XR_ITS ---
EXAMINATION: XR CHEST CLINICAL INFORMATION: Pain COMPARISON: Chest radiograph dated 11/29/2023. TECHNIQUE: Frontal view of the chest was obtained. FINDINGS: The heart is normal in size. The lungs are clear. There is no pleural effusion or pneumothorax. No acute osseous abnormality. XR/XR chest 1V IMPRESSION: No acute cardiopulmonary disease.
[2024-03-15 21:32] VITALS: BP 122/80; PULSE 100; O2SAT 98; BMI 20.5
[2024-03-15 21:45] VITALS: BP 122/90; PULSE 99; RESP 16; TEMP 37.2; O2SAT 100
[2024-03-15 22:16] LABS: MANUAL DIFF FLAG NO
[2024-03-15 22:18] LABS: Basophils Absolute Auto 0.1 X10*3/uL (0.0-0.2); Basophils Percent Auto 0.7 % (0-2); Eosinophils Percent Auto 0.6 % (0-4); Hematocrit 40.6 % (37.0-47.0); Hemoglobin 14.1 g/dl (12.0-16.0); Imm Gran Abs Auto 0.03 X10*3/uL (0.00-0.03); Imm Gran Pct Auto 0.4 % (0.0-0.4); Lymphocytes Absolute Auto 1.2 X10*3/uL (1.2-4.9); Lymphocytes Percent Auto 16.9 % (20-40); Mean Corpuscular HGB Conc 34.7 g/dl (31.0-35.0); Mean Corpuscular Hemoglobin 31.3 pg (27.0-33.0); Mean Platelet Volume 9.5 fL (9.4-12.3); Monocytes Absolute Auto 0.5 X10*3/uL (0.1-1.2); Monocytes Percent Auto 7.9 % (2-11); Neutrophils Absolute Auto 5.1 x10*3/uL (2.0-8.3); Neutrophils Percent Auto 73.5 % (45-73); Platelet Count 270 X10*3/uL (160-400); Red Blood Count 4.51 X10*6/uL (4.20-5.50); Red Cell Distribution Width 12.6 % (11.0-16.0); White Blood Count 6.9 X10*3/uL (4.8-10.8)
[2024-03-15 22:33] LABS: Alanine Aminotransferase 13 U/L (0-31); Alkaline Phosphatase 33 U/L (39-117); Anion Gap 12 (12-20); Aspartate Amino Transferase 16 U/L (5-31); Bilirubin Total 0.6 mg/dL (0.0-1.0); Blood Urea Nitrogen 11 mg/dL (9-16); Calcium 8.8 mg/dL (8.4-10.2); Carbon Dioxide 17 mmol/L (22-29); Chloride 113 mmol/L (96-108); Creatinine Clr Calc Pharmacy 97.3; Estimated Glomerular Filt Rate > 60; Glucose Random 117 mg/dL (60-115); Potassium 3.3 mmol/L (3.3-5.1); Sodium 139 mmol/L (135-145); Total Protein 6.7 g/dL (6.5-8.0)
[2024-03-15 23:46] VITALS: BP 136/95; PULSE 95; RESP 16; TEMP 36.9; O2SAT 97
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
[2024-03-16] MEDS: Acetaminophen 325 MG TABLET 975 MG PO (00:18)
[2024-03-16 01:54] VITALS: BP 128/78; PULSE 85; RESP 16; TEMP 36.7; O2SAT 100
== END 2024-03-16 01:55 | disposition home or self-care (01) ==
PROVIDERS: Emergency Provider Emergency Medicine; PCP Nurse Practitioner Family
DX: S09.90XA Unspecified injury of head, initial encounter (principal); M79.10 Myalgia, unspecified site; R51.9 Headache, unspecified; R07.89 Other chest pain; Y04.2XXA Assault by strike against or bumped into by another person, initial encounter; Y93.9 Activity, unspecified; Y92.89 Other specified places as the place of occurrence of the external cause; Y99.8 Other external cause status; Z79.899 Other long term (current) drug therapy
CPT/HCPCS: 36415; 70450; 71045; 80053; 85025; 99283; 99284

== ENCOUNTER 2024-04-20 08:54 | Outpatient (REF) | payer BC, MEDICARE, MEDICAID, SELFPAY ==
--- NOTE | ~2024-04-20 | XR_ITS ---
EXAMINATION: XR HAND, LEFT XR HAND, RIGHT CLINICAL INFORMATION: Family history of arthritis. COMPARISON: None available. TECHNIQUE: PA, lateral, and oblique views of the left hand. PA, lateral, and oblique views of the right hand. FINDINGS: Left hand: The bones and soft tissues are normal. No fracture. Alignment is anatomic. Joint spaces are maintained. No erosions or soft tissue calcifications. Right hand: The bones and soft tissues are normal. No fracture. Alignment is anatomic. Joint spaces are maintained. No erosions or soft tissue calcifications. XR/XR hand RT 2V IMPRESSION: Unremarkable hand radiographs Electronically signed by: Honorio Marion MD 05/03/2024 02:23 PM EDT
--- NOTE | ~2024-04-20 | XR_ITS ---
EXAMINATION: XR HAND, LEFT XR HAND, RIGHT CLINICAL INFORMATION: Family history of arthritis. COMPARISON: None available. TECHNIQUE: PA, lateral, and oblique views of the left hand. PA, lateral, and oblique views of the right hand. FINDINGS: Left hand: The bones and soft tissues are normal. No fracture. Alignment is anatomic. Joint spaces are maintained. No erosions or soft tissue calcifications. Right hand: The bones and soft tissues are normal. No fracture. Alignment is anatomic. Joint spaces are maintained. No erosions or soft tissue calcifications. XR/XR hand LT 2V IMPRESSION: Unremarkable hand radiographs Electronically signed by: Honorio Marion MD 05/03/2024 02:23 PM EDT
[2024-04-20 09:31] LABS: MANUAL DIFF FLAG NO
[2024-04-20 10:18] LABS: Appearance Urine Cloudy; Color Urine Yellow; Glucose Urine UA Negative (Negative); Leukocyte Esterase Urine Negative (Negative); Nitrite Urine Negative (Negative); PH 5.5 (5.0-9.0); Specific Gravity - Urine <= 1.005 (1.005-1.025); Urine Blood Negative (Negative); Urine Ketones Negative (Negative); Urine Protein Negative (Neg-Trace)
[2024-04-20 11:18] LABS: Eosinophils Absolute Auto 0.1 X10*3/uL (0.0-0.4); Eosinophils Percent Auto 2.3 % (0-4); Hemoglobin 15.5 g/dl (12.0-16.0); Lymphocytes Absolute Auto 1.2 X10*3/uL (1.2-4.9); Lymphocytes Percent Auto 30.1 % (20-40); Mean Corpuscular HGB Conc 34.4 g/dl (31.0-35.0); Mean Corpuscular Hemoglobin 31.4 pg (27.0-33.0); Mean Corpuscular Volume 91.1 fL (80.0-98.0); Mean Platelet Volume 9.9 fL (9.4-12.3); Monocytes Absolute Auto 0.3 X10*3/uL (0.1-1.2); Monocytes Percent Auto 7.6 % (2-11); Neutrophils Absolute Auto 2.3 x10*3/uL (2.0-8.3); Platelet Count 302 X10*3/uL (160-400); Red Blood Count 4.94 X10*6/uL (4.20-5.50); Red Cell Distribution Width 12.3 % (11.0-16.0)
[2024-04-20 12:30] LABS: Alanine Aminotransferase 13 U/L (0-31); Albumin Level 4.6 g/dL (3.5-5.0); Alkaline Phosphatase 36 U/L (39-117); Anion Gap 13 (12-20); Aspartate Amino Transferase 13 U/L (5-31); Blood Urea Nitrogen 12 mg/dL (9-16); C Reactive Protein < 0.10 mg/dL (< or = 0.50); Calcium 9.7 mg/dL (8.4-10.2); Carbon Dioxide 22 mmol/L (22-29); Chloride 108 mmol/L (96-108); Cholesterol 122 mg/dL (<200); Estimated Glomerular Filt Rate > 60; Glucose Fasting 87 mg/dL (60-99); HDL Cholesterol 65 mg/dL (>40); LDL Cholesterol Calculated 51 mg/dL (<100); Potassium 3.9 mmol/L (3.3-5.1); Sodium 139 mmol/L (135-145); Total Protein 7.5 g/dL (6.5-8.0); Triglycerides 32 mg/dL (<150)
[2024-04-20 12:37] LABS: Rheumatoid Factor < 13.0 IU/mL (<15.0)
[2024-04-20 12:39] LABS: Erythrocyte Sedimentation Rate 3 MM/HR (0-20)
[2024-04-20 12:41] LABS: HBS Num1 106.46 mIU/mL (0-7.99); HBsAGNum1 0.26 S/CO (0.00-0.99); HIV AB/AG Nonreactive (Nonreactive); HIV Num 1 0.05 S/CO (0.00-0.99); Hepatitis A Antibody IgM 0.19 Index (0-0.79); Hepatitis B Core Antibody Nonreactive (Nonreactive); Hepatitis B Surface Antigen Negative (Negative); Syphilis Screen Nonreactive (Nonreactive); ~HepC Num1 0.13 S/CO (0.00-0.79); ~Hepatitis A Antibody IgM Nonreactive (Nonreactive); ~Hepatitis B Surface Antibody REACTIVE (Nonreactive); ~Hepatitis C Antibody Nonreactive (Nonreactive)
[2024-04-20 12:54] LABS: TSH reflex Free T4 1.38 uIU/mL (0.32-4.0)
[2024-04-21 17:19] LABS: Anti DNA DS Antibody 1 IU/mL; Antibody to SS-A Antigen <1.0 NEG AI (<1.0 NEG); Antibody to SS-B Antigen <1.0 NEG AI (<1.0 NEG)
[2024-04-21 23:24] LABS: Herpes Simplex Type 1 IgG <0.90 index; Herpes Simplex Type 2 IgG <0.90 index
[2024-04-26 22:19] LABS: Cyclic Citrullinated Peptide <16 UNITS
[2024-04-27 20:04] LABS: Anti Nuclear Antibody Pattern Mitotic, Centrosome; Anti Nuclear Antibody Screen POSITIVE (NEGATIVE)
[2024-04-28 12:34] LABS: DNAds, Crithidia Antibody Negative (Negative)
== END 2024-04-20 08:55 | disposition home or self-care (01) ==
LOC: HO.LAB 08:54
PROVIDERS: PCP Nurse Practitioner Family; Visit Provider Nurse Practitioner Family
DX: Z00.00 Encounter for general adult medical examination without abnormal findings (principal); Z13.6 Encounter for screening for cardiovascular disorders; Z11.4 Encounter for screening for human immunodeficiency virus [HIV]; Z20.2 Contact with and (suspected) exposure to infections with a predominantly sexual mode of transmission; F41.9 Anxiety disorder, unspecified; M79.641 Pain in right hand; M79.642 Pain in left hand; Z82.61 Family history of arthritis
CPT/HCPCS: 36415; 73120; 80053; 80061; 81003; 84443; 85025; 85652; 86038; 86039; 86140; 86200; 86225; 86235; 86255; 86431; 86695; 86696; 86704; 86706; 86709; 86780; 86803; 87340; 87389

== ENCOUNTER 2024-05-23 15:36 | Outpatient (AMB) | payer BC, MEDICARE, MEDICAID, SELFPAY ==
[2024-05-23 15:41] VITALS: BP 108/70; PULSE 96; O2SAT 95; BMI 20.4
--- NOTE | 2024-05-23 15:41 | AM.OFFWIN_ITS ---
Intake Vital Signs 05/23/24 15:41 Height 5 ft 8 in Weight 134 lb 4 oz BMI 20.4 BP 108/70 Blood Pressure Location Lt brachial Position Sitting Pulse 96 Pulse Source Pulse Oximeter Pulse Oximetry (%) 95 Oxygen Delivery Method Room Air Intake Visit Reasons: EP ? UTI Intake Note: Patient here for UTI sx that started about 1 week ago. frequent urination, burning when urinating, nausea. Patient Tobacco Use Status: Former Tobacco user Allergies Sulfa (Sulfonamide Antibiotics) Allergy (Unknown, Verified 05/23/24 15:47) Itching sulfamethoxazole [From Bactrim] Allergy (Unknown, Verified 05/23/24 15:47) itchy trimethoprim [From Bactrim] Allergy (Unknown, Verified 05/23/24 15:47) itchy DUST Allergy (Unknown, Uncoded 05/23/24 15:47) RUNNY NOSE SEASONAL ALLERGIES Allergy (Unknown, Uncoded 05/23/24 15:47) UNKNOWN Do you need a note to return to daycare/school/sports/work: No HPI HPI Comments History of Present Illness Details Patient is a 38-year-old female complaining of 1 week of pain with urination, increased frequency of urination. She denies any low back pain, fevers, blood in her urine or history of kidney stones. She also states that she change sexual partners recently and she has noticed a little bit thicker vaginal discharge than normal and she just would like to get tested for gonorrhea and chlamydia. Patient states she has had some cramping but that is just because she finished her menstrual cycle yesterday [facility] Medical History Asthma PTSD (post-traumatic stress disorder) Seizure disorder Bipolar 1 disorder Tachycardia OCD (obsessive compulsive disorder) Leukopenia Suicidal ideations History of depression Hx gestational diabetes PVC (premature ventricular contraction) Vertigo Migraine aura without headache (migraine equivalents) History of irritable bowel syndrome Surgical History No pertinent past surgical history Family History Father No problems noted. Mother HTN (hypertension) Diabetes High cholesterol Rheumatoid arthritis Maternal Grandfather No problems noted. Paternal Grandfather Substance use disorder Social History Household Members: Children Housing: Condominium Alcohol intake: current Alcohol intake frequency: a few times a month Alcohol type: hard liquor Patient Tobacco Use Status: Former Tobacco user Cigarettes Per Day: 5 e-Cigarette/Vaping Use: Never Used Second Hand Smoke Exposure: Yes Current occupational status: unemployed Cognitive needs: No Hearing needs: No Vision needs: No Review of Systems Const All systems reviewed & are unremarkable except as noted in HPI and below Physical Exam Vital Signs: Last Vital Signs Pulse 96 05/23/24 15:41 BP 108/70 05/23/24 15:41 Pulse Ox 95 05/23/24 15:41 Oxygen Delivery Method Room Air 05/23/24 15:41 BMI result Body Mass Index 20.4 Const General: cooperative, healthy appearing, comfortable and no acute distress Orientation/consciousness: patient oriented x3 HEENT Head: Yes normal to inspection Ears: hearing grossly normal bilaterally General nose exam: Normal external nose present Face and sinus: Yes normal facial exam Neck Neck: Yes normal visual inspection, Yes trachea midline and Yes supple Resp Effort & Inspection: normal respiratory effort and able to speak in complete sentences Skin General skin exam: no rashes or lesions noted Neuro General: patient oriented x3 Psych Appearance: grossly normal Speech and movement: Normal speech and movement present Attitude: cooperative Thought process: Normal thought process present Insight: Good insight present (Psych) Judgement: Good judgement present (Psych) Results AMB Urinalysis, Automated UA Leukoctes 15 Varghese/uL Last Edit by Stella Abrasm [facility] on 05/23/24 16:1 0 UA Nitrite Negative Last Edit by Stella Abrams [facility] on 05/23/24 16:10 UA Urobilinogen 0.2 mg/dL Last Edit by Stella Abrams [facility] on 05/23/24 16:10 UA Protein 0 mg/dL Last Edit by Stella Abrams [facility] on 05/23/24 16:10 UA pH 6.0 Last Edit by Stella Abrams [facility] on 05/23/24 16:10 UA Blood 10 Chad/uL Last Edit by Stella Abrams [facility] on 05/23/24 16:10 UA Specific [place] 1.015 Last Edit by KIM Hill on 05/23/24 16:10 UA Ketone Negative Last Edit by Stella Abrams [facility] on 05/23/24 16:10 UA Bilirubin 0 mg/dL Last Edit by Stella Abrams [facility] on 05/23/24 16:10 UA Glucose 0 mg/dL Last Edit by Stella Abrams [facility] on 05/23/24 16:10 Results Reviewed Results Reviewed: Laboratory Last Values Urine pH (Auto) 6.0 05/23/24 16:09 Specific [place] (Auto) 1.015 05/23/24 16:09 Urine Protein (Auto) 0 mg/dL 05/23/24 16:09 Glucose (UA)(Auto) 0 mg/dL 05/23/24 16:09 Urine Ketones (Auto) Negative 05/23/24 16:09 Urine Blood (Auto) 10 Chad/uL 05/23/24 16:09 Urine Nitrite (Auto) Negative 05/23/24 16:09 Urine Bilirubin (Auto) 0 mg/dL 05/23/24 16:09 Urine Urobilinogen (Auto) 0.2 mg/dL 05/23/24 16:09 Leukocyte Esterase (Auto) 15 Varghese/uL 05/23/24 16:09 Assessment & Plan Assessment & Plan (1) Urinary tract infection: Code(s): N39.0 - Urinary tract infection, site not specified Qualifiers: Hematuria presence: with hematuria Urinary tract infection type: acute cystitis Qualified Code(s): N30.01 - Acute cystitis with hematuria Plan: Vital signs stable, UA positive for leukocyte esterase and trace blood. Sent [facility]. Gave red flag warning signs and when to go to the emergency department; I also reviewed signs and symptoms of kidney stones (2) Screening for STD (sexually transmitted disease): Code(s): Z11.3 - Encounter for screening for infections with a predominantly sexual mode of transmission Plan: As patient has a new partner and some changing vaginal discharge, will get STI screening. Plan see above Orders: Orders AMB Urinalysis Automated Today Z13.9 - Encounter for screening, unspecified CT NG by PCR Today Z11.3 - Encounter for screening for infections with a predominantly sexual mode of transmission Medications: New nitrofurantoin monohyd/m-cryst 100 mg (Seirathermd) must administer with a meal/food 100 mg PO Q12H 10 caps 0RF 5 days Coding Level of Care Code Est Pt Level 4 (19938) Diagnoses Acute cystitis with hematuria N30.01 Hematuria presence: with hematuria Urinary tract infection type: acute cystitis Screening for STD (sexually transmitted disease) Z11.3
== END 2024-05-23 16:29 | disposition home or self-care (01) ==
PROVIDERS: PCP Nurse Practitioner Family; Visit Provider Physician Assistant
DX: N30.01 Acute cystitis with hematuria (principal); Z11.3 Encounter for screening for infections with a predominantly sexual mode of transmission; Z13.9 Encounter for screening, unspecified

== ENCOUNTER 2024-05-23 15:36 | Outpatient (REF) | payer BC, MEDICARE, MEDICAID, SELFPAY ==
[2024-05-24 13:59] LABS: CT PCR NOT DETECTED (Not Detect.); NG PCR NOT DETECTED (Not Detect.)
== END 2024-05-23 15:37 | disposition home or self-care (01) ==
LOC: HO.LAB 15:36
PROVIDERS: PCP Nurse Practitioner Family; Visit Provider Physician Assistant
DX: N30.01 Acute cystitis with hematuria (principal); Z11.3 Encounter for screening for infections with a predominantly sexual mode of transmission
CPT/HCPCS: 81003; 87491; 87591

== ENCOUNTER 2024-06-08 16:20 | Emergency (ER) | payer BC, MEDICARE, MEDICAID, SELFPAY ==
[2024-06-08 17:08] VITALS: BP 136/90; PULSE 102; RESP 16; TEMP 36.3; O2SAT 100; BMI 20.1
--- NOTE | 2024-06-08 17:14 | ED.GENADULT ---
HPI - General Adult General Chief complaint: General Medical Stated complaint: food poisoning, mulptiple complaints Related Data Home Medications ?Medication ?Instructions ?Recorded ?Confirmed clonazepam 1 mg tablet 2 mg PO BID Anxiety 06/27/21 07/28/23 cetirizine 10 mg tablet 10 mg PO DAILY 12/10/21 07/28/23 lisdexamfetamine 30 mg capsule 50 mg PO QAM 07/28/23 07/28/23 (Vyvanse) topiramate 100 mg tablet 200 mg PO BID 07/28/23 07/28/23 Previous Rx's ?Medication ?Instructions ?Recorded albuterol sulfate 90 mcg/actuation 2 puff inhalation Q4H PRN for 05/28/23 aerosol inhaler muscle spasm #8.5 ea mometasone 50 mcg/actuation nasal 2 spray intranasal DAILY #51 grams 11/06/23 spray budesonide 90 mcg/actuation breath 1 inh inhalation Q12H #1 ea 12/14/23 activated powder inhaler (Pulmicort Flexhaler) acetaminophen 500 mg tablet 500 mg PO Q6H PRN fever or pain 03/16/24 #20 tabs nitrofurantoin 100 mg PO Q12H 5 days #10 caps 05/23/24 monohydrate/macrocrystals 100 mg capsule (Macrobid) azithromycin 250 mg tablet See Rx Instructions PO .COMPLEX #6 05/30/24 tabs albuterol sulfate 90 mcg/actuation 2 puff inhalation Q6H PRN 05/31/24 aerosol inhaler (Ventolin HFA) shortness of breath or wheezing #8.5 grams Allergies Allergy/AdvReac Type Severity Reaction Status Date / Time Sulfa (Sulfonamide Allergy Unknown Itching Verified 06/08/24 17:12 Antibiotics) sulfamethoxazole Allergy Unknown itchy Verified 06/08/24 17:12 [From Bactrim] trimethoprim [From Bactrim] Allergy Unknown itchy Verified 06/08/24 17:12 DUST Allergy Unknown RUNNY NOSE Uncoded 05/23/24 15:47 SEASONAL ALLERGIES Allergy Unknown UNKNOWN Uncoded 05/23/24 15:47 PMFSH Past Medical History Medical History Asthma PTSD (post-traumatic stress disorder) Seizure disorder Bipolar 1 disorder Tachycardia OCD (obsessive compulsive disorder) Leukopenia Suicidal ideations History of depression Hx gestational diabetes PVC (premature ventricular contraction) Vertigo Migraine aura without headache (migraine equivalents) History of irritable bowel syndrome Surgical History No pertinent past surgical history Family History Family History Father No problems noted. Mother HTN (hypertension) Diabetes High cholesterol Rheumatoid arthritis Maternal Grandfather No problems noted. Paternal Grandfather Substance use disorder Social History Social History [facility]hold Members: Children [facility] Alcohol intake: current Alcohol intake frequency: a few times a month Alcohol type: hard liquor Patient Tobacco Use Status: Former Tobacco user Cigarettes Per Day: 5 e-Cigarette/Vaping Use: Never Used Second Hand Smoke Exposure: Yes Advance Directives: No Advance Directives Information Provided: No Current occupational status: unemployed Cognitive needs: No Hearing needs: No Vision needs: No Physical Exam ED Vital Signs: Vital Signs - 24 hr 06/08/24 17:08 Temperature 97.3 F Pulse Rate 102 H Respiratory Rate 16 Blood Pressure 136/90 H Pulse Oximetry 100 Oxygen Delivery Method Room Air BMI result Body Mass Index 20.1 Course Course Course Narrative: RME: Done by MEJIA Zhang. 38-year-old female presents to ED for possible food poisoning. Patient states after eating right and grape fruit patient started having diarrhea and vomiting. Patient states feeling fatigued. Patient also states she was recently treated for whooping cough due to exposure to sun sweats open cough. Abdomen-benign neuro exam intact. Labs ordered. Medical Decision Making Lab Data 06/08/24 18:04 06/08/24 18:04 Labs: Lab Results 06/08/24 Range/Units 18:04 WBC 5.3 (4.8-10.8) X10*3/uL RBC 4.72 (4.20-5.50) X10*6/uL Hgb 15.0 (12.0-16.0) g/dl Hct 42.8 (37.0-47.0) % MCV 90.7 (80.0-98.0) fL MCH 31.8 (27.0-33.0) pg MCHC 35.0 (31.0-35.0) g/dl RDW 11.9 (11.0-16.0) % Plt Count 289 (160-400) X10*3/uL MPV 9.5 (9.4-12.3) fL Immature Gran % (Auto) 0.2 (0.0-0.4) % Neut % (Auto) 56.6 (45-73) % Lymph % (Auto) 33.5 (20-40) % [place] % (Auto) 7.8 (2-11) % Eos % (Auto) 1.3 (0-4) % Baso % (Auto) 0.6 (0-2) % Lymph # (Auto) 1.8 (1.2-4.9) X10*3/uL [place] # (Auto) 0.4 (0.1-1.2) X10*3/uL Eos # (Auto) 0.1 (0.0-0.4) X10*3/uL Baso # (Auto) 0.0 (0.0-0.2) X10*3/uL Abs Immat Gran (auto) 0.01 (0.00-0.03) X10*3/uL Absolute Neuts (auto) 3.0 (2.0-8.3) x10*3/uL Absolute Nucleated RBC 0.000 (0.0-0.012) X10*3/uL Nucleated RBC % (auto) 0.0 (0.0-0.2) /100WBC Sodium 141 (135-145) mmol/L Potassium 3.7 (3.3-5.1) mmol/L Chloride 112 H (96-108) mmol/L Carbon Dioxide 22 (22-29) mmol/L Anion Gap 11 L (12-20) BUN 9 (9-16) mg/dL Creatinine 0.72 (0.5-1.4) mg/dL Estim Creat Clear Calc 99.3 Estimated GFR > 60 Random Glucose 85 (60-115) mg/dL Calcium 9.2 (8.4-10.2) mg/dL Total Bilirubin 0.6 (0.0-1.0) mg/dL AST 13 (5-31) U/L ALT 12 (0-31) U/L Alkaline Phosphatase 39 (39-117) U/L Total Protein 7.2 (6.5-8.0) g/dL Albumin 4.3 (3.5-5.0) g/dL Beta HCG, Quant < 2 mIU/mL Influenza Type A (PCR) NEGATIVE (Negative) Influenza Type B (PCR) NEGATIVE (Negative) RSV RNA Qual (PCR) NEGATIVE (Negative) SARS-CoV-2 RNA (RT-PCR) NEGATIVE (Negative) S. pyogenes GrpA MERA Negative (Negative) Discharge Plan Discharge Clinical Impression: Abdominal pain Patient Disposition: Left W/O Completing Treatment Prescriptions: No Action mometasone 50 mcg/actuation spray,non-aerosol 2 spray intranasal DAILY Qty: 51 1RF Rx Instructions: administer into each nostril Pulmicort Flexhaler 90 mcg/actuation aerosol powdr breath activated 1 inh inhalation Q12H Qty: 1 2RF azithromycin 250 mg tablet See Rx Instructions PO .COMPLEX Qty: 6 0RF Rx Instructions: For 250 mg dose pack: take 500 mg today (day 1), then 250 mg for 4 days (days 2-5) PO albuterol sulfate [Ventolin HFA] 90 mcg/actuation HFA aerosol inhaler 2 puff inhalation Q6H PRN (Reason: shortness of breath or wheezing) Qty: 8.5 0RF clonazepam 1 mg tablet 2 mg PO BID acetaminophen 500 mg tablet 500 mg PO Q6H PRN (Reason: fever or pain) Qty: 20 0RF cetirizine 10 mg tablet 10 mg PO DAILY Vyvanse 30 mg capsule 50 mg PO QAM topiramate 100 mg tablet 200 mg PO BID albuterol sulfate 90 mcg/actuation HFA aerosol inhaler 2 puff inhalation Q4H PRN (Reason: for muscle spasm) Qty: 8.5 0RF nitrofurantoin monohyd/m-cryst [Macrobid] 100 mg capsule 100 mg PO Q12H 5 Days Qty: 10 0RF Rx Instructions: must administer with a meal/food Discharge Date/Time: 06/08/24 21:43
[2024-06-08 18:15] LABS: MANUAL DIFF FLAG NO
[2024-06-08 18:22] LABS: Basophils Percent Auto 0.6 % (0-2); Eosinophils Absolute Auto 0.1 X10*3/uL (0.0-0.4); Eosinophils Percent Auto 1.3 % (0-4); Hematocrit 42.8 % (37.0-47.0); Imm Gran Abs Auto 0.01 X10*3/uL (0.00-0.03); Imm Gran Pct Auto 0.2 % (0.0-0.4); Lymphocytes Absolute Auto 1.8 X10*3/uL (1.2-4.9); Lymphocytes Percent Auto 33.5 % (20-40); Mean Corpuscular Hemoglobin 31.8 pg (27.0-33.0); Mean Corpuscular Volume 90.7 fL (80.0-98.0); Mean Platelet Volume 9.5 fL (9.4-12.3); Monocytes Absolute Auto 0.4 X10*3/uL (0.1-1.2); Monocytes Percent Auto 7.8 % (2-11); Neutrophils Percent Auto 56.6 % (45-73); Platelet Count 289 X10*3/uL (160-400); Red Blood Count 4.72 X10*6/uL (4.20-5.50); Red Cell Distribution Width 11.9 % (11.0-16.0); White Blood Count 5.3 X10*3/uL (4.8-10.8)
[2024-06-08 18:34] LABS: IDNOW Serial# 08D9AD1C; Strep A Nucleic Acid Negative (Negative)
[2024-06-08 18:46] LABS: Alanine Aminotransferase 12 U/L (0-31); Albumin Level 4.3 g/dL (3.5-5.0); Alkaline Phosphatase 39 U/L (39-117); Anion Gap 11 (12-20); Aspartate Amino Transferase 13 U/L (5-31); Bilirubin Total 0.6 mg/dL (0.0-1.0); Blood Urea Nitrogen 9 mg/dL (9-16); Calcium 9.2 mg/dL (8.4-10.2); Carbon Dioxide 22 mmol/L (22-29); Chloride 112 mmol/L (96-108); Creatinine Clr Calc Pharmacy 99.3; Estimated Glomerular Filt Rate > 60; Glucose Random 85 mg/dL (60-115); Potassium 3.7 mmol/L (3.3-5.1); Sodium 141 mmol/L (135-145); Total Protein 7.2 g/dL (6.5-8.0)
[2024-06-08 18:51] LABS: HCG Quantitative < 2 mIU/mL
[2024-06-08 18:58] LABS: Influenza A PCR NEGATIVE (Negative); Influenza B PCR NEGATIVE (Negative); Resp Syncy Virus RNA Qual PCR NEGATIVE (Negative); SARS COV2 PCR INHOUSE NEGATIVE (Negative)
== END 2024-06-08 21:43 | disposition left against medical advice (07) ==
PROVIDERS: Physician Assistant; Emergency Provider Emergency Medicine; PCP Nurse Practitioner Family
DX: R19.7 Diarrhea, unspecified (principal); R11.10 Vomiting, unspecified; R10.9 Unspecified abdominal pain; R00.0 Tachycardia, unspecified; Z03.818 Encounter for observation for suspected exposure to other biological agents ruled out; R05.9 Cough, unspecified; J45.909 Unspecified asthma, uncomplicated; I49.3 Ventricular premature depolarization; F17.210 Nicotine dependence, cigarettes, uncomplicated; Z79.899 Other long term (current) drug therapy
CPT/HCPCS: 0241U; 80053; 84702; 85025; 87651; 99281; 99283

== ENCOUNTER 2024-06-30 12:47 | Outpatient (REF) | payer BC, MEDICARE, MEDICAID, SELFPAY ==
[2024-06-30 17:07] LABS: Rheumatoid Factor < 13.0 IU/mL (<15.0)
[2024-06-30 17:14] LABS: C Reactive Protein < 0.10 mg/dL (< or = 0.50)
[2024-06-30 17:30] LABS: Erythrocyte Sedimentation Rate 2 MM/HR (0-20)
[2024-06-30 17:31] LABS: TSH reflex Free T4 0.48 uIU/mL (0.32-4.0)
[2024-07-01 10:03] LABS: Complement C3 126 mg/dL (83-193)
[2024-07-01 20:18] LABS: Anti DNA DS Antibody 1 IU/mL; SM/Ribonucleoprotein Ab <1.0 NEG AI (<1.0 NEG); Smith Protein <1.0 NEG AI (<1.0 NEG)
[2024-07-04 22:58] LABS: Cyclic Citrullinated Peptide <16 UNITS
[2024-07-07 12:23] LABS: Anti Nuclear Antibody Screen POSITIVE (NEGATIVE)
== END 2024-06-30 12:48 | disposition home or self-care (01) ==
LOC: HO.LAB 12:47
PROVIDERS: PCP Nurse Practitioner Family; Visit Provider Student in an Organized Health Care Education/Training Program
DX: M25.511 Pain in right shoulder (principal); M25.512 Pain in left shoulder; R76.8 Other specified abnormal immunological findings in serum
CPT/HCPCS: 36415; 73030; 84443; 85652; 86038; 86039; 86140; 86160; 86200; 86225; 86235; 86431

== ENCOUNTER 2024-06-30 12:47 | Outpatient (AMB) | payer BC, MEDICARE, MEDICAID, SELFPAY ==
--- NOTE | 2024-06-30 12:48 | A.OFFVIS_ITS ---
Vital Signs 06/30/24 12:51 Height 5 ft 8 in Weight 130 lb 1.164 oz BMI 19.8 BP 128/76 Blood Pressure Location Lt brachial Position Sitting Pulse 115 H Pulse Source Pulse Oximeter Intake Visit Reasons: Abnormal lab results/CM Intake Note: Patient presents as a new patient internally referred by PCP for +CLEMENT. 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: No Accompanied by: Self / Same As Patient Allergies Sulfa (Sulfonamide Antibiotics) Allergy (Unknown, Verified 06/30/24 12:51) Itching sulfamethoxazole [From Bactrim] Allergy (Unknown, Verified 06/30/24 12:51) itchy trimethoprim [From Bactrim] Allergy (Unknown, Verified 06/30/24 12:51) itchy DUST Allergy (Unknown, Uncoded 06/30/24 12:51) RUNNY NOSE SEASONAL ALLERGIES Allergy (Unknown, Uncoded 06/30/24 12:51) UNKNOWN Medication List - Last Reconciled 06/30/24 by Barbi Varghese MD acetaminophen 500 mg PO Q6H PRN albuterol sulfate 90 mcg/actuation 2 puffs inhalation Q4H PRN albuterol sulfate 90 mcg/actuation (Ventolin HFA) 2 puffs inhalation Q6H PRN budesonide 90 mcg/actuation (Pulmicort Flexhaler) 1 inh inhalation Q12H cetirizine 10 mg PO DAILY clonazepam 2 mg PO BID lisdexamfetamine (Vyvanse) 50 mg PO QAM magnesium glycinate 100 mg PO DAILY mometasone 50 mcg/actuation 2 sprays intranasal DAILY multivitamin 1 tab PO DAILY nitrofurantoin monohyd/m-cryst 100 mg (Macrobid) 100 mg PO Q12H 5 days topiramate 200 mg PO BID vitamin B complex 1 tab PO DAILY HPI Comments Details: Patient is a 38-year-old female with epilepsy who presents for evaluation of polyarthralgias in the setting of positive CLEMENT. Patient states that for several years she has been having migratory polyarthralgias involving her hands, wrists, elbows, shoulders and feet. She notes that sometimes at night she gets stiffness that wakes her up out of her sleep and takes a while to work out. In the morning she wakes up there is stiffness but lasts for about 15-20 minutes. She is able to do her activities of daily living in the morning but then notes throughout the day that at some point the pains return. Rashes: States she gets an itchy rash on her elbows. And sometimes when she is in the sun she gets really red. But denies true photosensitivity we are going out into the sun and then going in results in a intense rash that does not go away without treatment. Sicca symptoms: Reports dry eyes and dry mouth needing to use topical eyedrops and copious amounts of water to eat foods such as steak. Denies photosensitivity, alopecia, oral/nasal ulcers, lymphadenopathy, chest pain/shortness of breath, foamy urine, lower extremity edema, muscle weakness, Raynaud's Also denies history of seizure, CVA, psychosis, history of kidney problems, history of cytopenias, history of VTE including PE or DVTs OB History: Has 2 kids. No history of recurrent 2nd trimester loss. No history of preeclampsia. Family history: Mother with rheumatoid arthritis. [facility] Medical History (Updated 06/30/24 @ 14:00 by Barbi Varghese MD) Fibromyalgia Shoulder pain, bilateral Asthma PTSD (post-traumatic stress disorder) Seizure disorder Bipolar 1 disorder Tachycardia OCD (obsessive compulsive disorder) Leukopenia Suicidal ideations History of depression Hx gestational diabetes PVC (premature ventricular contraction) Vertigo Migraine aura without headache (migraine equivalents) History of irritable bowel syndrome Surgical History No pertinent past surgical history Family History Father No problems noted. Mother HTN (hypertension) Diabetes High cholesterol Rheumatoid arthritis Maternal Grandfather No problems noted. Paternal Grandfather Substance use disorder Social History [facility]hold Members: Children [facility] Alcohol intake: current Alcohol intake frequency: a few times a month Alcohol type: hard liquor Patient Tobacco Use Status: Former Tobacco user Cigarettes Per Day: 5 e-Cigarette/Vaping Use: Never Used Second Hand Smoke Exposure: Yes Current occupational status: unemployed Cognitive needs: No Hearing needs: No Vision needs: No Review of Systems Const Details: Review of Systems Constitutional: Denies fever, chills, weight loss. Notes an intense amount of fatigue. ENT: Denies vision changes, eye pain or eye redness, dental caries, dry mouth GI: Denies nausea, vomiting, diarrhea, abdominal pain, change in BM Pulm: Denies SOB, AZAR, hemoptysis, wheezing Cards: Denies chest pain, palpitations Skin: Denies Raynaud's, rash, nail changes, photosensitivity, SCHOOL OCCUPATIONAL THERAPIST: Denies headaches, weakness, paresthesias, recurrent falls MSK: as per HPI All other systems reviewed and are unremarkable except noted above Physical Exam Vital Signs: BMI result Body Mass Index 19.8 Physical Examination CONSTITUITIONAL Patient alert and cooperative. Well appearing and in no apparent painful distress HEENT Conjunctiva and sclera clear. ?Pupils equal round and reactive to light. ?No lymphadenopathy. ?Normal dentition. No oral or nasal ulcers noted. No evidence of discoid rash to the kaylynn of ears CHEST/RESPIRATORY SYSTEM Normal respiratory effort and able to speak in complete sentences. ?Clear to auscultation bilaterally. ?No crackles, rales, rhonchi, wheezes heard. CARDIAC SYSTEM Regular rate and rhythm. ?S1 and S2 heard no murmurs. ?Radial pulses intact bilaterally MSK Hands: ?Good reclamation worker strength bilaterally - 5/5. ?No deformities noted. ?No synovitis noted to the MCPs, PIPs or DIPs. ?No tenderness to palpation of these joints. Wrists: ?Full range of motion at the wrists without pain. ?No tenderness to palpation or synovitis noted to the wrists. Elbows: Full range of motion without pain. No tenderness, weakness, swelling, increased warmth or erythema. Shoulders: Full range of motion without pain. No tenderness, weakness, swelling, increased warmth or erythema. Hips: Full range of motion without pain. Hip bursa: No tenderness to palpation Knees: ?Full range of motion. ?No tenderness, swelling, increased warmth or erythema.?No effusion or crepitations Ankles: Full range of motion. ?No tenderness, swelling, increased warmth or erythema.? Feet: ?Negative squeeze test. ?No tenderness to palpation or swelling of the MTPs. Tender points:??Positive tender points noted to the occiput, trapezius, supraspinatus, gluteus, greater trochanter, lower cervical, 2nd rib, lateral epicondyle and knee. SKIN Skin intact without rashes. Results Reviewed Results Reviewed: Laboratory Tests 04/20/24 06/08/24 09:20 18:04 WBC 4.0 L 5.3 RBC 4.94 4.72 Hgb 15.5 15.0 Hct 45.0 42.8 Plt Count 302 289 ESR 3 Sodium 139 141 Potassium 3.9 3.7 Chloride 108 112 H Carbon Dioxide 22 22 BUN 12 9 Creatinine 0.79 0.72 AST 13 13 ALT 13 12 Alkaline Phosphatase 36 L 39 C-Reactive Protein < 0.10 TSH 1.38 X-ray bilateral hands. 03/2024 FINDINGS: Left hand: The bones and soft tissues are normal. No fracture. Alignment is anatomic. Joint spaces are maintained. No erosions or soft tissue calcifications. Right hand: The bones and soft tissues are normal. No fracture. Alignment is anatomic. Joint spaces are maintained. No erosions or soft tissue calcifications. Assessment & Plan Assessment & Plan (1) Fibromyalgia: Code(s): M79.7 - Fibromyalgia Category: Medical Plan: #Fibromyalgia Patient's history is very nonspecific and does not fit any no autoimmune disease. Interestingly she does have bilateral mild to moderate dry eyes. Usually for the criteria of Sjogren's we will need a positive SSA or SSB in addition to a Martha's test that is less than 5 mm. Hers was between 5-10 mm bilaterally. We will check her SSA and SSB. She does have fibromyalgia with positive tender points affecting all 9 pairs of locations. Gave her a printout about fibromyalgia and also discuss treatment options. Plan to check other blood work and x-rays of her bilateral shoulders. We will see her again in 4 weeks with the results. At that time we will consider starting her on duloxetine. (2) CLEMENT positive: Code(s): R76.8 - Other specified abnormal immunological findings in serum Category: Medical Plan: #Positive CLEMENT The presence of antinuclear antibodies (CLEMENT) is mainly associated with connective tissue diseases (CTD). ?However, their presence is found in healthy people especially in women and patients >65. ?In healthy individuals, the frequency of CLEMENT has been shown to be 31.7% of individuals at 1:40 serum dilution, 13.3% at 1:80, 5.0% at 1:160, and 3.3% at 1:320 (2). Some drugs and xenobiotics are also important for the development of CLEMENT (hydralazine, hydrochlorothiazide, minocycline, terbinafine, ciprofloxacin, furosemide, omeprazole). Moreover, the deficiency of vitamin D in the body of patients correlates with occurrence of these antibodies (1). At this time there is low suspicion for a connective tissue disease. ? 1. Lewis?jessica Dia, Moreno Diaz, Mery Banerjee. Antinuclear antibodies in healthy people and non-rheumatic diseases - diagnostic and clinical implications. Reumatologia. 2018;56(4):243-248. doi: 10.5114/reum.2018.59076. Epub 2017Apr 30. PMID: [id number]; PMCID: [id number]. 2. Burgess EM, Graeme TE, Jamie JS, Jean B, Jameson R, Godwin MJ, Yong T, Fallon JA, Dayron JR, Apryl RG, Miriam RN, Bakari JS, Jaymie NF, Kamille RJ, Rk Y, Ilir A, Rayshawn MR, Rosa MCGRATH. Range of antinuclear antibodies in healthy individuals. Arthritis Rheum. 1996;40(9):1601-11. doi: 10.1002/art.3937933222. PMID: 6140771. Plan I spent 30 minutes reviewing the record and labs, seeing the patient, discussing the treatment plan and documenting in the medical record ? For next visit: * Review labs and consider starting duloxetine Orders: Orders CLEMENT Reflex Titer and Pattern Today M25.511 - Pain in right shoulder, M25.512 - Pain in left shoulder, R76.8 - Other specified abnormal immunological findings in serum Anti Extractable Nuclear Ag Today M25.511 - Pain in right shoulder, M25.512 - Pain in left shoulder, R76.8 - Other specified abnormal immunological findings in serum Complement C3 Today M25.511 - Pain in right shoulder, M25.512 - Pain in left shoulder, R76.8 - Other specified abnormal immunological findings in serum Complement C4 Today M25.511 - Pain in right shoulder, M25.512 - Pain in left shoulder, R76.8 - Other specified abnormal immunological findings in serum Cyclic Citrullinated Peptide Today M25.511 - Pain in right shoulder, M25.512 - Pain in left shoulder, R76.8 - Other specified abnormal immunological findings in serum Anti DNA DS Antibody Today M25.511 - Pain in right shoulder, M25.512 - Pain in left shoulder, R76.8 - Other specified abnormal immunological findings in serum C Reactive Protein Today M25.511 - Pain in right shoulder, M25.512 - Pain in left shoulder, R76.8 - Other specified abnormal immunological findings in serum Erythrocyte Sedimentation Rate Today M25.511 - Pain in right shoulder, M25.512 - Pain in left shoulder, R76.8 - Other specified abnormal immunological findings in serum Rheumatoid Factor Today M25.511 - Pain in right shoulder, M25.512 - Pain in left shoulder, R76.8 - Other specified abnormal immunological findings in serum TSH reflex Free T4 Today M25.511 - Pain in right shoulder, M25.512 - Pain in left shoulder, R76.8 - Other specified abnormal immunological findings in serum XR shoulder RT min 2V Today M25.511 - Pain in right shoulder, M25.512 - Pain in left shoulder, R76.8 - Other specified abnormal immunological findings in serum XR shoulder LT min 2V Today M25.511 - Pain in right shoulder, M25.512 - Pain in left shoulder, R76.8 - Other specified abnormal immunological findings in serum Referrals Rheumatology Referral M25.511 - Pain in right shoulder, M25.512 - Pain in left shoulder, R52 - Pain, unspecified, R76.8 - Other specified abnormal immunological findings in serum, Z82.61 - Family history of arthritis Coding Level of Care Code New Pt Level 3 (78504) Diagnoses Fibromyalgia M79.7 CLEMENT positive R76.8
[2024-06-30 12:51] VITALS: BP 128/76; PULSE 115; BMI 19.8
== END 2024-06-30 13:41 | disposition home or self-care (01) ==
LOC: HO.RHE 12:48
PROVIDERS: PCP Nurse Practitioner Family; Visit Provider Student in an Organized Health Care Education/Training Program
DX: M79.7 Fibromyalgia (principal); R76.8 Other specified abnormal immunological findings in serum
CPT/HCPCS: 99203

== ENCOUNTER 2024-08-08 10:41 | Outpatient (AMB) | payer BC, MEDICARE, MEDICAID, SELFPAY ==
[2024-08-08 10:42] VITALS: BP 112/80; PULSE 93; O2SAT 97; BMI 20.7
--- NOTE | 2024-08-08 10:42 | A.OFFPC_ITS ---
Vital Signs 08/08/24 10:42 Height 5 ft 8 in Weight 136 lb BMI 20.7 BP 112/80 Blood Pressure Location Rt brachial Position Sitting Pulse 93 Pulse Source Pulse Oximeter Pulse Oximetry (%) 97 Intake Visit Reasons: Annual PE Intake Note: pt is here for PE Manager Gift Required: No Accompanied by: Self / Same As Patient Allergies Sulfa (Sulfonamide Antibiotics) Allergy (Unknown, Verified 08/08/24 11:11) Itching sulfamethoxazole [From Bactrim] Allergy (Unknown, Verified 08/08/24 11:11) itchy trimethoprim [From Bactrim] Allergy (Unknown, Verified 08/08/24 11:11) itchy DUST Allergy (Unknown, Uncoded 08/08/24 11:11) RUNNY NOSE SEASONAL ALLERGIES Allergy (Unknown, Uncoded 08/08/24 11:11) UNKNOWN Medication List - Last Reconciled 08/08/24 by JERRY Delgado-CHELSEA acetaminophen 500 mg PO Q6H PRN albuterol sulfate 90 mcg/actuation 2 puffs inhalation Q4H PRN albuterol sulfate 90 mcg/actuation (Ventolin HFA) 2 puffs inhalation Q6H PRN budesonide 90 mcg/actuation (Pulmicort Flexhaler) 1 inh inhalation Q12H cetirizine 10 mg PO DAILY clonazepam 0.5 mg PO BID lisdexamfetamine (Vyvanse) 50 mg PO QAM magnesium glycinate 100 mg PO DAILY mometasone 50 mcg/actuation 2 sprays intranasal DAILY multivitamin 1 tab PO DAILY topiramate 200 mg PO BID vitamin B complex 1 tab PO DAILY Tobacco use date assessed: 01/27/24 Dental Screening Dental Screen Date: 01/27/24 HPI Annual PE HPI Details History of Present Illness The patient is a 38-year-old female presenting with varicose veins, an exacerbation of asthma, and concerns about sinusitis. She notes a family history of varicose veins, with her mother having spider veins and her grandfather experiencing more severe varicosities. She has observed that one of her thighs is approximately an inch larger than the other, correlated with the presence of more pronounced veins. The veins occasionally become more prominent and then recede. Additionally, the patient reports a recent exacerbation in her asthma symptoms, associated with bothersome sinuses, likely due to a recent upper respiratory infection that was accompanied by chills. She describes feeling groggy and experiencing headaches. The patient has used weed seltzers to aid her appetite, which has been suppressed due to stress. She is currently receiving psychiatric care and sees a therapist for her anxiety and stress, which she identifies as central contributors to her reduced appetite and feeling of weakness. No prior chest pain, shortness of breath, or gastrointestinal symptoms were discussed. The patient expresses a desire to quit smoking, acknowledging its negative impact on her vascular and respiratory health. Denies any si or hi Health Maintenance - Referral for first mammogram scheduled for October. - CHIEF SERVICE DISPATCHER referrals provided; patient acknow ledged receipt and will follow up. - Discussed importance of smoking cessat ion and referred to resources for assistance. - Discussed potential risks associated w ith family history of venous disease and the importance of vascular evaluation. Social History - Reports high stress levels correlated with her employment and family responsibilities. - Uses marijuana seltzer occasionally fo r appetite stimulation. - Generally weighs between 125-128 pound s; noted recent concerns about weight management due to stress. - Single parent of a 15-year-old son, mary grace perez is very active and involved in school activities; patient involved in his management. - Expressed that time constraints impact her ability to grocery shop and maintain regular meals. - Mentioned smoking but expressed readin ess to quit soon. Review of Systems Physical Exam General: Cooperative, healthy appearing, comfortable, no acute distress, skinny stature Orientation: Patient oriented x3 Limitations: No limitations Head: Normal to inspection Ears: Hearing grossly normal bilaterally Nose: Normal external nose present Face and sinus: Sinuses have been really bothering the patient, possibly indicating a sinus infection Eyes: Appearance normal, both eyes and all related structures Neck: Normal visual inspection and Yes full ROM Respiratory: Normal respiratory effort and able to speak in complete sentences. Clear to auscultation bilaterally Cardiovascular: Regular rate and rhythm. Normal S1 and S2 GI: Normal to inspection. Soft to palpation and nontender Skin: No rashes or lesions noted Neuro: Patient oriented x3 Extremities: Varicose veins noted to upper medial thigh, and posterior left lower extremity. They do not seem tender to touch. Referred to vascular specialist. Results Plan will cont to monitor weight Patient was informed and verbally consented to the use of an ambient scribe for clinic note documentation during this visit. Discussion Notes I discussed with the patient the family history of varicose veins and the need for a vascular specialist referral. We reviewed her asthma control and the recent exacerbation in conjunction with sinusitis symptoms, emphasizing the need for close monitoring. The importance of smoking cessation was covered, with resources offered to support this decision. We talked about ongoing management for her anxiety and stress, taking into account her psychiatric and therapeutic care. Anticipated follow-ups were discussed alongside routine health screenings such as mammography and gynecological exams. Patient Instructions [facility] Medical History Fibromyalgia Shoulder pain, bilateral Asthma PTSD (post-traumatic stress disorder) Seizure disorder Bipolar 1 disorder Tachycardia OCD (obsessive compulsive disorder) Leukopenia Suicidal ideations History of depression Hx gestational diabetes PVC (premature ventricular contraction) Vertigo Migraine aura without headache (migraine equivalents) History of irritable bowel syndrome Surgical History No pertinent past surgical history Family History Father No problems noted. Mother HTN (hypertension) Diabetes High cholesterol Rheumatoid arthritis Maternal Grandfather No problems noted. Paternal Grandfather Substance use disorder Social History Household Members: Children Housing: Condominium Alcohol intake: current Alcohol intake frequency: a few times a month Alcohol type: hard liquor Patient Tobacco Use Status: Former Tobacco user Cigarettes Per Day: 5 e-Cigarette/Vaping Use: Never Used Second Hand Smoke Exposure: Yes Current occupational status: unemployed Cognitive needs: No Hearing needs: No Vision needs: No Questionnaire PHQ-9 Over the last 2 weeks, how often have you been bothered by any of the following problems? 97829 - PHQ-9 Billing: Patient declined-do not bill (has a psychiatrist and therapist, denies any si or hi) Source: Developed by Drs. Nikko Cleary, Irma Pryor, Chris Garcia and colleagues, with an educational amanda from [employer]. Thrive Questionnaire Date Thrive assessed: 01/27/24 OPAL-7 AMB Questionnaire OPAL-7 Date OPAL - 7 assessed: 01/27/24 Source: Developed by Drs. Nikko LIrma Butler Kurt Kroenke and colleagues, with an educational amanda from [employer]. OPAL-7 Assessment Billing OPAL-7 Assessment Tool: OPAL-7 Assessment 90120 Physical exam (Primary Care) Vital Signs: Last Vital Signs Pulse 93 08/08/24 10:42 BP 112/80 08/08/24 10:42 Pulse Ox 97 08/08/24 10:42 BMI result Body Mass Index 20.7 Tobacco/Smoking Status: Tobacco use Status Tobacco use date assessed 01/27/24 08/08/24 10:43 Patient Tobacco Use Status Former Tobacco user 08/08/24 10:43 e-Cigarette/Vaping Use Never Used 08/08/24 10:43 Thrive Assessment: Date of Thrive Assessment Date Thrive assessed 01/27/24 08/08/24 10:43 Coding Level of Care Code Est Pt Prev Care 18-39y(07816) Diagnoses Physical exam Z00.00 Varicose veins of leg with complications I83.899 Additional Codes OPAL-7 Assessment Billing - OPAL-7 Assessment Tool: OPAL-7 Assessment 66670 ([id number]) Assessment & Plan Assessment & Plan (1) Physical exam: Code(s): Z00.00 - Encounter for general adult medical examination without abnormal findings Category: Medical (2) Varicose veins of leg with complications: Code(s): I83.899 - Varicose veins of unspecified lower extremity with other complications Category: Medical Plan . Orders: Orders Comprehensive [place]. Panel Fast Today Z00.00 - Encounter for general adult medical examination without abnormal findings MM screening mammo BI 4 Months Z12.31 - Encounter for screening mammogram for malignant neoplasm of breast Complete Blood Count Auto Diff Today Z00.00 - Encounter for general adult medical examination without abnormal findings TSH reflex Free T4 Today Z00.00 - Encounter for general adult medical examination without abnormal findings UA CC w/rflx Micro + Cult Today Z00.00 - Encounter for general adult medical examination without abnormal findings Lipid Panel Today Z00.00 - Encounter for general adult medical examination without abnormal findings Referrals Vascular Surgery Referral I83.899 - Varicose veins of unspecified lower extremity with other complications
== END 2024-08-08 11:47 | disposition home or self-care (01) ==
PROVIDERS: PCP Nurse Practitioner Family; Visit Provider Nurse Practitioner Family
DX: Z00.00 Encounter for general adult medical examination without abnormal findings (principal); I83.899 Varicose veins of unspecified lower extremity with other complications

== ENCOUNTER → 2024-08-08 10:41 | Outpatient (BNVA) | payer BC, MEDICARE, MEDICAID, SELFPAY | PROVIDERS: PCP Nurse Practitioner Family; Visit Provider Nurse Practitioner Family | DX: Z00.00 Encounter for general adult medical examination without abnormal findings (principal); I83.899 Varicose veins of unspecified lower extremity with other complications | CPT/HCPCS: 96127 ==

== ENCOUNTER 2025-02-09 20:39 | Emergency (ER) | payer BC, MEDICARE, MEDICAID, SELFPAY ==
[2025-02-09 20:47] VITALS: BP 146/98; PULSE 100; RESP 17; TEMP 37.1; O2SAT 99; BMI 19.9
--- NOTE | 2025-02-09 20:48 | ED_ITS ---
HPI - General Adult General Chief complaint: General Medical Stated complaint: rectal pain Time Seen by Provider: 02/09/25 22:25 Source: patient Mode of arrival: ambulatory Limitations: no limitations History of Present Illness ED Provider: Ellen Escalona NP HPI narrative: Patient is a 39-year-old female with past medical history of hemorrhoids, IBS, asthma, POTS, epilepsy who presents emergency department for evaluation. She reports over the past 2 weeks she has been noticing some discomfort to her rectal region she has a history of IBS with intermittent constipation and diarrhea recently has been quite constipated. She has been using preparation H to her rectum which was helping. However recently she has noticed an increase in the amount of pain that she is experiencing in his able to feel something at her anal region that she feels is enlarging. She denies any hematochezia or melena, does have pain with sitting as well as straining for bowel movements. Denies any fevers or chills. Denies any pus-like drainage noted on toilet tissue or in her undergarments. Related Data Home Medications ?Medication ?Instructions ?Recorded ?Confirmed cetirizine 10 mg tablet 10 mg PO DAILY 12/10/21 08/08/24 lisdexamfetamine 30 mg capsule 50 mg PO QAM 07/28/23 08/08/24 (Vyvanse) topiramate 100 mg tablet 200 mg PO BID 07/28/23 08/08/24 magnesium glycinate 100 mg (as 100 mg PO DAILY 06/30/24 08/08/24 glycinate) tablet multivitamin 1 tab PO DAILY 06/30/24 08/08/24 vitamin B complex 1 tab PO DAILY 06/30/24 08/08/24 clonazepam 1 mg tablet 0.5 mg PO BID Anxiety 08/08/24 08/08/24 Previous Rx's ?Medication ?Instructions ?Recorded albuterol sulfate 90 mcg/actuation 2 puff inhalation Q4H PRN for 05/28/23 aerosol inhaler muscle spasm #8.5 ea budesonide 90 mcg/actuation breath 1 inh inhalation Q12H #1 ea 12/14/23 activated powder inhaler (Pulmicort Flexhaler) acetaminophen 500 mg tablet 500 mg PO Q6H PRN fever or pain 03/16/24 #20 tabs albuterol sulfate 90 mcg/actuation 2 puff inhalation Q6H PRN 05/31/24 aerosol inhaler (Ventolin HFA) shortness of breath or wheezing #8.5 grams amoxicillin 875 mg-potassium 1 tab PO BID 10 days #20 tabs 08/11/24 clavulanate 125 mg tablet levonorgestrel 1.5 mg tablet 3 mg (2 x 1.5 mg) PO ONCE 1 day #2 10/23/24 tabs levonorgestrel 1.5 mg tablet 3 mg (2 x 1.5 mg) PO ONCE 1 day #2 10/23/24 tabs mometasone 50 mcg/actuation nasal 2 spray intranasal DAILY #51 grams 01/08/25 spray albuterol sulfate 90 mcg/actuation 2 puff inhalation Q4-6H PRN 02/10/25 aerosol inhaler shortness of breath or wheezing #6.7 grams amoxicillin 875 mg-potassium 1 tab PO BID #10 tabs 02/10/25 clavulanate 125 mg tablet Allergies Allergy/AdvReac Type Severity Reaction Status Date / Time Sulfa (Sulfonamide Allergy Unknown Itching Verified 02/09/25 20:50 Antibiotics) sulfamethoxazole Allergy Unknown itchy Verified 02/09/25 20:50 [From Bactrim] trimethoprim [From Bactrim] Allergy Unknown itchy Verified 02/09/25 20:50 DUST Allergy Unknown RUNNY NOSE Uncoded 02/09/25 20:50 SEASONAL ALLERGIES Allergy Unknown UNKNOWN Uncoded 02/09/25 20:50 Review of Systems 2 Review of Systems: Yes all other systems are reviewed and are negative PMFSH Past Medical History Attestation statement: The following information was validated with the patient. Source: old records reviewed Medical History Fibromyalgia Shoulder pain, bilateral Asthma PTSD (post-traumatic stress disorder) Seizure disorder Bipolar 1 disorder Tachycardia OCD (obsessive compulsive disorder) Leukopenia Suicidal ideations History of depression Hx gestational diabetes PVC (premature ventricular contraction) Vertigo Migraine aura without headache (migraine equivalents) History of irritable bowel syndrome Surgical History No pertinent past surgical history Family History Family History Father No problems noted. Mother HTN (hypertension) Diabetes High cholesterol Rheumatoid arthritis Maternal Grandfather No problems noted. Paternal Grandfather Substance use disorder Social History Social History Household Members: Children Housing: Condominium Alcohol intake: current Alcohol intake frequency: a few times a month Alcohol type: hard liquor Patient Tobacco Use Status: Former Tobacco user Cigarettes Per Day: 5 Smoked in Last 30 Days: Yes e-Cigarette/Vaping Use: Never Used Second Hand Smoke Exposure: Yes Advance Directives: No Advance Directives Information Provided: No Do you have a plan to hurt others: No Plan Patient : No Current occupational status: unemployed Cognitive needs: No Hearing needs: No Vision needs: No Physical Exam ED Vital Signs: Vital Signs - 24 hr 02/09/25 20:47 02/09/25 22:41 02/10/25 00:24 Temperature 98.7 F 98.0 F 98.1 F Pulse Rate 100 89 78 Respiratory Rate 17 16 18 Blood Pressure 146/98 H 127/96 H 115/78 Pulse Oximetry 99 100 100 Oxygen Delivery Method Room Air Room Air Room Air 02/10/25 02:30 Temperature 97.6 F Pulse Rate 74 Respiratory Rate 18 Blood Pressure 124/77 Pulse Oximetry 98 Oxygen Delivery Method Room Air BMI result Body Mass Index 19.9 Appearance: Alert.?Oriented to person, place and time. No acute distress.?Normal affect. Eyes: Pupils equal, round and reactive to light.? ENT: Pharynx normal.?? Neck: Normal inspection.? Neck supple.?? CVS: Heart sounds normal. Normal heart rate and rhythm.? Pulses normal.?? Respiratory: No respiratory distress.? Lung sounds clear to auscultation bilaterally?? Abdomen: Soft and non-tender. Normoactive bowel sounds. Rectal: Performed with clinical sociologist ED RN Felecia; patient has an erythematous fluctuant 2 cm perianal abscess on the left Skin: Skin warm and dry.? Normal skin color.? ? Extremities: No lower extremity edema.? Neuro: Moves all extremities spontaneously. Sensation intact bilaterally. Ambulates with normal steady gait. Course Course Course Narrative: RME, this is a rapid medical exam performed by Aaron Eason please refer to primary provider for complete H&P- 39 year old female presents for evaluation of rectal pain. She does have a history of hemorrhouids but this feels slightly different Medications Administered Discontinued Medications Generic Name Dose Route Start Last Admin Trade Name Ericka PRN Reason Stop Dose Admin Amoxicillin/Clavulanate Potassium 875 mg 02/10/25 02:12 02/10/25 02:28 Amoxicillin/Potassium Clav 875 Mg Tablet PO 02/10/25 02:13 875 mg ONCE ONE Administration Lidocaine HCl 1 appl 02/10/25 00:03 02/10/25 00:15 Lidocaine 4 % Cream Kit TOPICAL 02/10/25 00:04 1 appl ONCE ONE Administration Protocol Lidocaine HCl 5 ml 02/10/25 00:05 02/10/25 00:15 Lidocaine Hcl 1 % Mpf 5 Ml Vial SUBCUT 02/10/25 00:06 5 ml ONCE ONE Administration Procedures Abscess I/D Site: other (Perianal) Side (if applicable): left Local Anesthetic: lidocaine 1% Amount of anesthesia used (mL): 3 Technique: needle aspiration Irrigation: Yes Packing used?: none Medical Decision Making Medical Decision Making MDM Narrative: Patient is a 39-year-old female with past medical history of hemorrhoids, IBS, asthma, POTS, epilepsy who presents emergency department for evaluation of the painful lump to the rectal region that increases with straining for bowel movements as well as sitting. Concerning initially for hemorrhoid, thrombosed hemorrhoid, perianal abscess, perirectal abscess. On physical examination she has a perianal abscess on the left measuring approximately 2 cm with central fluctuance that would be amenable to incision and drainage. No systemic toxicity, and patient is well-appearing. There is mild surrounding cellulitis. Not consistent with necrotizing fasciitis, myositis, Ivanna's gangrene patient is now status post drainage of abscess upon infiltration with lidocaine the abscess began to drain on its own, was able to apply manual pressure to decompress the area of fluctuance without requiring surgical blade incision, she had some associated pain but overall tolerated the procedure well. No complications. No indication for imaging at this time. Will discharge home with course of oral antibiotics and symptomatic treatment instructions, outpatient follow-up with General surgery with recurrent/persistent symptoms. Discussed reasons to return to the emergency department, and follow-up with primary care provider. Patient agreeable with plan of care. Patient is also requesting a refill of her albuterol inhaler according that she had recently ran out of it. She is not having any acute symptoms but, but has not been able to follow up with the primary care doctor to get a refill and feels most comfortable to have this on hand. Prescription will be sent Differential Diagnosis Differential Diagnoses: The differential diagnosis associated with the presentation includes (See narrative above) Admission/Observation Consideration of admission/observation: Escalation of care including admission/observation considered Lab Data MDM Lab Attestation statement: I reviewed the patient's lab results. 02/10/25 00:14 02/10/25 00:14 Labs: Lab Results 02/10/25 Range/Units 00:14 WBC 7.9 (4.8-10.8) X10*3/uL RBC 4.27 (4.20-5.50) X10*6/uL Hgb 13.3 (12.0-16.0) g/dl Hct 38.3 (37.0-47.0) % MCV 89.7 (80.0-98.0) fL MCH 31.1 (27.0-33.0) pg MCHC 34.7 (31.0-35.0) g/dl RDW 12.3 (11.0-16.0) % Plt Count 246 (160-400) X10*3/uL MPV 8.8 L (9.4-12.3) fL Immature Gran % (Auto) 0.3 (0.0-0.4) % Neut % (Auto) 70.3 (45-73) % Lymph % (Auto) 19.8 L (20-40) % [place] % (Auto) 8.0 (2-11) % Eos % (Auto) 1.0 (0-4) % Baso % (Auto) 0.6 (0-2) % Lymph # (Auto) 1.6 (1.2-4.9) X10*3/uL [place] # (Auto) 0.6 (0.1-1.2) X10*3/uL Eos # (Auto) 0.1 (0.0-0.4) X10*3/uL Baso # (Auto) 0.1 (0.0-0.2) X10*3/uL Abs Immat Gran (auto) 0.02 (0.00-0.03) X10*3/uL Absolute Neuts (auto) 5.5 (2.0-8.3) x10*3/uL Absolute Nucleated RBC 0.000 (0.0-0.012) X10*3/uL Nucleated RBC % (auto) 0.0 (0.0-0.2) /100WBC Sodium 140 (135-145) mmol/L Potassium 3.5 (3.3-5.1) mmol/L Chloride 110 H (96-108) mmol/L Carbon Dioxide 25 (22-29) mmol/L Anion Gap 9 L (12-20) BUN 10 (9-16) mg/dL Creatinine 0.67 (0.5-1.4) mg/dL Estim Creat Clear Calc 104.5 Estimated GFR > 60 Random Glucose 129 H (60-115) mg/dL Calcium 8.5 D (8.4-10.2) mg/dL Total Bilirubin 0.6 (0.0-1.0) mg/dL AST 15 (5-31) U/L ALT 16 (0-31) U/L Alkaline Phosphatase 35 L (39-117) U/L Total Protein 6.3 L (6.5-8.0) g/dL Albumin 4.0 (3.5-5.0) g/dL External Record Review External record reviewed: Outpatient record Prescription Management I considered prescription management with: Pain Medication and Antibiotic Discharge Plan Discharge Clinical Impression: Perianal abscess Patient Disposition: Home, Self-Care Instructions: Sitz Bath (DC), Rectal Abscess (ED) Additional Instructions: You were seen in the emergency department for evaluation of a perianal abscess. This was drained while in the emergency department. As discussed, it is important with the next few days to perform Sitz baths to help further cleanse the area and allow for any additional drainage to be removed with gentle massage/pressure to the area. I am additionally prescribing a course of antibiotics, Augmentin his being sent to your pharmacy please complete the entire course not skip any doses or stop taking early even if you begin to feel better. I am providing contact information for the General surgery office for you to follow-up with with persistent symptoms. You will need to contact their office directly. You should return back to emergency department any new or worsening symptoms or concerns which include but are not limited to increasing pain, redness, swelling, fevers, chills. Prescriptions: New amoxicillin-pot clavulanate 875-125 mg tablet 1 tab PO BID Qty: 10 0RF albuterol sulfate 90 mcg/actuation HFA aerosol inhaler 2 puff inhalation Q4-6H PRN (Reason: shortness of breath or wheezing) Qty: 6.7 0RF No Action Pulmicort Flexhaler 90 mcg/actuation aerosol powdr breath activated 1 inh inhalation Q12H Qty: 1 2RF albuterol sulfate [Ventolin HFA] 90 mcg/actuation HFA aerosol inhaler 2 puff inhalation Q6H PRN (Reason: shortness of breath or wheezing) Qty: 8.5 0RF amoxicillin-pot clavulanate 875-125 mg tablet 1 tab PO BID 10 Days Qty: 20 0RF levonorgestrel 1.5 mg tablet 3 mg PO ONCE 1 Days Qty: 2 1RF levonorgestrel 1.5 mg tablet 3 mg PO ONCE 1 Days Qty: 2 1RF mometasone 50 mcg/actuation spray,non-aerosol 2 spray intranasal DAILY Qty: 51 1RF Rx Instructions: administer into each nostril clonazepam 1 mg tablet 0.5 mg PO BID acetaminophen 500 mg tablet 500 mg PO Q6H PRN (Reason: fever or pain) Qty: 20 0RF cetirizine 10 mg tablet 10 mg PO DAILY Vyvanse 30 mg capsule 50 mg PO QAM topiramate 100 mg tablet 200 mg PO BID albuterol sulfate 90 mcg/actuation HFA aerosol inhaler 2 puff inhalation Q4H PRN (Reason: for muscle spasm) Qty: 8.5 0RF multivitamin Tablet 1 tab PO DAILY vitamin B complex Tablet 1 tab PO DAILY magnesium glycinate 100 mg tablet 100 mg PO DAILY Referrals: Raf Jaquez, [employer] [Primary Care Provider] - Print Language: Cameroonian
[2025-02-09 22:41] VITALS: BP 127/96; PULSE 89; RESP 16; TEMP 36.7; O2SAT 100
[2025-02-10] MEDS: Lidocaine HCl 1 % MPF 5 ML VIAL SUBCUT (00:15)
[2025-02-10] MEDS: Lidocaine 4 % Cream KIT 1 APPL TOPICAL (00:15)
[2025-02-10 00:19] LABS: MANUAL DIFF FLAG NO
--- NOTE | 2025-02-10 00:19 | PC.NURSE ---
Lidocaine applied to left buttocks area
[2025-02-10 00:20] LABS: Basophils Absolute Auto 0.1 X10*3/uL (0.0-0.2); Basophils Percent Auto 0.6 % (0-2); Eosinophils Absolute Auto 0.1 X10*3/uL (0.0-0.4); Hematocrit 38.3 % (37.0-47.0); Hemoglobin 13.3 g/dl (12.0-16.0); Imm Gran Abs Auto 0.02 X10*3/uL (0.00-0.03); Imm Gran Pct Auto 0.3 % (0.0-0.4); Lymphocytes Absolute Auto 1.6 X10*3/uL (1.2-4.9); Lymphocytes Percent Auto 19.8 % (20-40); Mean Corpuscular HGB Conc 34.7 g/dl (31.0-35.0); Mean Corpuscular Hemoglobin 31.1 pg (27.0-33.0); Mean Corpuscular Volume 89.7 fL (80.0-98.0); Mean Platelet Volume 8.8 fL (9.4-12.3); Monocytes Absolute Auto 0.6 X10*3/uL (0.1-1.2); Neutrophils Absolute Auto 5.5 x10*3/uL (2.0-8.3); Neutrophils Percent Auto 70.3 % (45-73); Platelet Count 246 X10*3/uL (160-400); Red Blood Count 4.27 X10*6/uL (4.20-5.50); Red Cell Distribution Width 12.3 % (11.0-16.0); White Blood Count 7.9 X10*3/uL (4.8-10.8)
[2025-02-10 00:24] VITALS: BP 115/78; PULSE 78; RESP 18; TEMP 36.7; O2SAT 100
[2025-02-10 00:34] LABS: Alanine Aminotransferase 16 U/L (0-31); Alkaline Phosphatase 35 U/L (39-117); Anion Gap 9 (12-20); Aspartate Amino Transferase 15 U/L (5-31); Bilirubin Total 0.6 mg/dL (0.0-1.0); Blood Urea Nitrogen 10 mg/dL (9-16); Calcium 8.5 mg/dL (8.4-10.2); Carbon Dioxide 25 mmol/L (22-29); Chloride 110 mmol/L (96-108); Creatinine Clr Calc Pharmacy 104.5; Estimated Glomerular Filt Rate > 60; Glucose Random 129 mg/dL (60-115); Potassium 3.5 mmol/L (3.3-5.1); Sodium 140 mmol/L (135-145); Total Protein 6.3 g/dL (6.5-8.0)
[2025-02-10] MEDS: Amoxicillin/Potassium Clav 875 MG TABLET PO (02:28)
[2025-02-10 02:30] VITALS: BP 124/77; PULSE 74; RESP 18; TEMP 36.4; O2SAT 98
[2025-02-10 03:20] VITALS: BP 124/77; PULSE 74; RESP 18; TEMP 36.4; O2SAT 98
== END 2025-02-10 03:21 | disposition home or self-care (01) ==
PROVIDERS: Nurse Practitioner Family; Emergency Provider Emergency Medicine; PCP Nurse Practitioner Family
DX: K61.0 Anal abscess (principal); K62.89 Other specified diseases of anus and rectum; Z79.899 Other long term (current) drug therapy; Z87.891 Personal history of nicotine dependence
CPT/HCPCS: 36415; 46040; 80053; 85025; 99284; J2003

== ENCOUNTER 2025-07-06 02:28 | Inpatient (IN) | payer BC, MEDICARE, MEDICAID, SELFPAY ==
[2025-07-06 02:33] VITALS: BP 124/70; PULSE 90; O2SAT 100
[2025-07-06 02:53] VITALS: PULSE 91; RESP 20; TEMP 36.7; O2SAT 100; BMI 20.5
--- NOTE | 2025-07-06 03:09 | PC.NURSE ---
pt cell changer, labs collected and urine sent. pt cooperative and resting in bed.
[2025-07-06 03:15] LABS: Hematocrit 40.9 % (37.0-47.0); Hemoglobin 13.7 g/dl (12.0-16.0); Imm Gran Abs Auto 0.01 X10*3/uL (0.00-0.03); Imm Gran Pct Auto 0.2 % (0.0-0.4); Lymphocytes Absolute Auto 1.5 X10*3/uL (1.2-4.9); MANUAL DIFF FLAG NO; Mean Corpuscular HGB Conc 33.5 g/dl (31.0-35.0); Mean Corpuscular Hemoglobin 29.3 pg (27.0-33.0); Mean Corpuscular Volume 87.4 fL (80.0-98.0); NRBC Abs Auto 0.000 X10*3/uL (0.0-0.012); NRBC Pct Auto 0.0 /100WBC (0.0-0.2); Platelet Count 307 X10*3/uL (160-400); Red Blood Count 4.68 X10*6/uL (4.20-5.50); White Blood Count 5.1 X10*3/uL (4.8-10.8)
[2025-07-06 03:16] LABS: Appearance Urine Clear; Glucose Urine UA Negative (Negative); PH 6.5 (5.0-9.0); Specific Gravity - Urine <= 1.005 (1.005-1.025)
--- OUTSIDE RECORDS SUMMARY | 2025-07-06 03:22 | XMS_ITS | Patient Health Record ---
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 No Problems No Known Problems Plan Of Treatment No Information Insurance Providers Payer Name Payer Address Payer Phone Subscriber Number Group Number Insured Name Patient Relationship to Insured Coverage Start Date Coverage End Date [facility] [address] [place] [address] [id number] Yannick Stuart Spouse - patient is the spouse of the insured Medical (General) History Medical History History ICD Code Chicken pox Surgical History Surgery Date(Month/Year)
[2025-07-06 03:26] LABS: Cannabinoid Screen Urine POSITIVE (Not Detect)
[2025-07-06 03:30] LABS: Alanine Aminotransferase 15 U/L (0-31); Albumin Level 4.3 g/dL (3.5-5.0); Alkaline Phosphatase 32 U/L (39-117); Anion Gap 13 (12-20); Aspartate Amino Transferase 18 U/L (5-31); Blood Urea Nitrogen 15 mg/dL (9-16); Calcium 8.5 mg/dL (8.4-10.2); Carbon Dioxide 22 mmol/L (22-29); Chloride 107 mmol/L (96-108); Creatinine Clr Calc Pharmacy 91.5; Estimated Glomerular Filt Rate > 60; Potassium 3.6 mmol/L (3.3-5.1); Sodium 138 mmol/L (135-145); Total Protein 6.8 g/dL (6.5-8.0)
--- NOTE | 2025-07-06 03:37 | PC.NURSE ---
pt assisted to bathroom.
--- NOTE | 2025-07-06 04:57 | PC.NURSE ---
medicated per mar.
[2025-07-06 05:11] VITALS: BP 108/64; PULSE 76; RESP 16; TEMP 37.2; O2SAT 99
--- NOTE | 2025-07-06 05:46 | PC.NURSE ---
provider discussing plan of care.
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
--- NOTE | 2025-07-06 06:32 | PC.NURSE ---
report given and pt escorted to the pod, pt have been tearful, calm and cooperative.
--- NOTE | 2025-07-06 08:10 | PC.NURSE ---
Assumed care, report received. Pt is awake and admits to feeling very anxious. she eats a small amount of breakfast and asks for AM meds.
[2025-07-06 08:27] VITALS: BP 129/83; PULSE 115; TEMP 36.8; O2SAT 98
--- NOTE | 2025-07-06 09:14 | PHA.MEDREC ---
Pharmacy Consult ? Medication Reconciliation Pharmacy has completed the medication reconciliation. Reviewed med rec done by nursing, matches claims
[2025-07-06] MEDS: Albuterol Sulfate 90 MCG 8 GM INHALER 2 PUFF INHALE ×2 (09:39→23:35)
--- NOTE | 2025-07-06 10:43 | MHC.CARE ---
CARE team met with Pt at bedside. Disposition is for [facility]. Pt will be referred they have available female beds today.
--- NOTE | 2025-07-06 11:39 | MHC.CARE ---
After receiving collateral from family disposition changed and Pt will now be IPLOC. Section 12a in chart. ED provider in agreement.
--- NOTE | 2025-07-06 14:10 | ECG_ITS ---
Test Reason : prolong qtc Blood Pressure : */* mmHG Vent. Rate : 100 BPM Atrial Rate : 100 BPM P-R Int : 110 ms QRS Dur : 72 ms QT Int : 354 ms P-R-T Axes : 66 65 46 degrees QTcB Int : 456 ms Sinus rhythm with short AK Otherwise normal ECG When compared with ECG of 07-Oct-2020 02:53, AK interval has decreased Referred By: Ruma Mitchell Electronically Signed By: Ashvin Cedillo
[2025-07-06 16:10] VITALS: BMI 21.0
[2025-07-06 16:11] VITALS: BP 140/95; PULSE 93; RESP 16; TEMP 36.9; O2SAT 98
[2025-07-06] MEDS: Nicotine 21 MG PATCH.TD24 TRANSDERMA (17:08)
[2025-07-06] MEDS: Nicotine Polacrilex Lozenge 2 MG LOZENGE BUCCAL ×2 (17:08→20:54)
[2025-07-06] MEDS: Flu Vacc TS2025-26(6mo up)/PF 0.5 ML SYRINGE IM (17:09)
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
[2025-07-07] MEDS: Albuterol Sulfate 90 MCG 8 GM INHALER 2 PUFF INHALE (06:43)
[2025-07-07 08:00] VITALS: BP 151/75; PULSE 90; RESP 18; TEMP 36.8; O2SAT 98
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
[2025-07-07 08:25] LABS: Alanine Aminotransferase 20 U/L (0-31); Albumin Level 4.8 g/dL (3.5-5.0); Alkaline Phosphatase 35 U/L (39-117); Anion Gap 14 (12-20); Aspartate Amino Transferase 17 U/L (5-31); Blood Urea Nitrogen 12 mg/dL (9-16); Calcium 9.2 mg/dL (8.4-10.2); Carbon Dioxide 24 mmol/L (22-29); Chloride 107 mmol/L (96-108); Cholesterol 130 mg/dL (<200); Creatinine Clr Calc Pharmacy 99.9; Estimated Glomerular Filt Rate > 60; HDL Cholesterol 74 mg/dL (>40); Potassium 3.8 mmol/L (3.3-5.1); Sodium 141 mmol/L (135-145); Total Protein 7.6 g/dL (6.5-8.0); Triglycerides 31 mg/dL (<150)
[2025-07-07] MEDS: Nicotine 21 MG PATCH.TD24 TRANSDERMA (08:39)
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
[2025-07-07] MEDS: Nicotine Polacrilex Lozenge 2 MG LOZENGE BUCCAL ×7 (09:04→22:42)
--- NOTE | 2025-07-07 14:58 | PC.NURSE ---
Patient declined her full dose of Topamax this morning. Took only 1 pill (100mg) instead of the 2 pills (200mg). Provider Mary Jane Rausch notified via tiger text.
[2025-07-07 20:00] VITALS: BP 114/64; PULSE 86; RESP 16; TEMP 36.3; O2SAT 99
[2025-07-08] MEDS: Nicotine Polacrilex Lozenge 2 MG LOZENGE BUCCAL ×6 (07:25→22:10)
[2025-07-08 08:00] VITALS: BP 133/70; PULSE 107; RESP 16; TEMP 36.2; O2SAT 94
[2025-07-08] MEDS: Nicotine 21 MG PATCH.TD24 TRANSDERMA (08:28)
[2025-07-08] MEDS: Milk of Magnesia 30 ML ORAL.SUSP PO (08:31)
[2025-07-08] MEDS: Albuterol Sulfate 90 MCG 8 GM INHALER 2 PUFF INHALE (18:02)
[2025-07-08 20:00] VITALS: BP 130/84; PULSE 97; RESP 16; TEMP 36.3; O2SAT 97
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
[2025-07-09 08:00] VITALS: BP 100/55; PULSE 85; RESP 12; TEMP 36.6; O2SAT 98
[2025-07-09] MEDS: Nicotine Polacrilex Lozenge 2 MG LOZENGE BUCCAL ×7 (08:39→19:15)
[2025-07-09] MEDS: Albuterol Sulfate 90 MCG 8 GM INHALER 2 PUFF INHALE (08:41)
[2025-07-09] MEDS: Nicotine 21 MG PATCH.TD24 TRANSDERMA (08:42)
[2025-07-09 20:00] VITALS: BP 117/64; PULSE 85; RESP 18; TEMP 37; O2SAT 99
[2025-07-09] MEDS: Milk of Magnesia 30 ML ORAL.SUSP PO (20:36)
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
[2025-07-10] MEDS: Albuterol Sulfate 90 MCG 8 GM INHALER 2 PUFF INHALE (02:19)
[2025-07-10] MEDS: Nicotine Polacrilex Lozenge 2 MG LOZENGE BUCCAL ×10 (02:20→23:14)
[2025-07-10 07:36] VITALS: BP 142/89; PULSE 86; RESP 20; TEMP 36.4; O2SAT 100
[2025-07-10] MEDS: Nicotine 21 MG PATCH.TD24 TRANSDERMA (08:25)
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
[2025-07-10 20:00] VITALS: BP 128/73; PULSE 95; RESP 16; TEMP 36.3; O2SAT 100
[2025-07-11] MEDS: Nicotine Polacrilex Lozenge 2 MG LOZENGE BUCCAL ×9 (02:04→23:29)
[2025-07-11 07:46] VITALS: BP 106/69; PULSE 83; RESP 18; TEMP 36.7; O2SAT 99
[2025-07-11] MEDS: Albuterol Sulfate 90 MCG 8 GM INHALER 2 PUFF INHALE (08:15)
[2025-07-11] MEDS: Nicotine 21 MG PATCH.TD24 TRANSDERMA (08:16)
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
[2025-07-11 20:00] VITALS: BP 139/60; PULSE 100; RESP 18; TEMP 36.3; O2SAT 100
[2025-07-11] MEDS: Milk of Magnesia 30 ML ORAL.SUSP PO (21:06)
[2025-07-12] MEDS: Nicotine Polacrilex Lozenge 2 MG LOZENGE BUCCAL ×3 (07:24→13:08)
[2025-07-12 08:00] VITALS: BP 102/63; PULSE 89; RESP 18; TEMP 36.2; O2SAT 98
[2025-07-12] MEDS: Nicotine 21 MG PATCH.TD24 TRANSDERMA (08:19)
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
[2025-07-12] MEDS: Albuterol Sulfate 90 MCG 8 GM INHALER 2 PUFF INHALE (13:31)
== END 2025-07-12 14:05 | disposition home or self-care (01) | DRG 751 ==
LOC: HO.ED 06:32 → HO.PADLT16 15:01
PROVIDERS: Admitting Provider Registered Nurse; Emergency Provider Emergency Medicine; PCP Nurse Practitioner Family; Responsible Provider Registered Nurse; Visit Provider Psychiatry & Neurology Psychiatry
DX: F33.9 Major depressive disorder, recurrent, unspecified (principal); R45.851 Suicidal ideations; G40.909 Epilepsy, unspecified, not intractable, without status epilepticus; F10.10 Alcohol abuse, uncomplicated; K58.1 Irritable bowel syndrome with constipation; F17.210 Nicotine dependence, cigarettes, uncomplicated; Z71.6 Tobacco abuse counseling; F12.10 Cannabis abuse, uncomplicated; J45.909 Unspecified asthma, uncomplicated; G43.909 Migraine, unspecified, not intractable, without status migrainosus; M79.7 Fibromyalgia; Z79.899 Other long term (current) drug therapy
CPT/HCPCS: 36415; 80053; 80061; 80307; 81001; 83036; 84702; 85025; 90656; 93005; 99285; S9485

== ENCOUNTER → 2025-07-06 14:10 | Outpatient (BNV) | payer BC, MEDICARE, MEDICAID, SELFPAY | PROVIDERS: Admitting Provider Registered Nurse; Emergency Provider Emergency Medicine; PCP Nurse Practitioner Family; Responsible Provider Registered Nurse; Visit Provider Internal Medicine Cardiovascular Disease | DX: Z13.6 Encounter for screening for cardiovascular disorders (principal) | CPT/HCPCS: 93010 ==

== ENCOUNTER → 2025-07-06 14:49 | Outpatient (BNV) | payer BC, MEDICARE, MEDICAID, SELFPAY | PROVIDERS: Admitting Provider Registered Nurse; Emergency Provider Emergency Medicine; PCP Nurse Practitioner Family; Responsible Provider Registered Nurse; Visit Provider Registered Nurse | DX: F33.9 Major depressive disorder, recurrent, unspecified (principal); F10.10 Alcohol abuse, uncomplicated; F12.10 Cannabis abuse, uncomplicated | CPT/HCPCS: 90792; 99231; 99232 ==

== ENCOUNTER → 2025-07-06 14:49 | Outpatient (BNV) | payer BC, MEDICARE, MEDICAID, SELFPAY | PROVIDERS: Admitting Provider Registered Nurse; Emergency Provider Emergency Medicine; PCP Nurse Practitioner Family; Visit Provider Nurse Practitioner Family | DX: Z00.8 Encounter for other general examination (principal) | CPT/HCPCS: 99429 ==